=== PATIENT | male | born 1930 | race Caucasian/White ===

== ENCOUNTER 2017-11-10 09:25 | Observation (INO) ==
[2017-11-10 10:21] LABS: Urine Bilirubin Negative (NEGATIVE); Urine Blood 250 /ul (NEGATIVE); Urine Ketone Negative (NEGATIVE); Urine Protein >=300 mg/dL (NEGATIVE); Urine Urobilinogen Normal (NORMAL); Urine pH 6.5 pH (5.0-7.0)
[2017-11-10] MEDS ORDERED: CLONIDINE HCL 0.1 MG TABLET PO ONE (10:24)
[2017-11-10 10:26] LABS: Urine Appearance Cloudy (CLEAR); Urine Color Yellow; Urine Nitrite Positive (NEGATIVE)
[2017-11-10] MEDS ORDERED: CLONIDINE HCL 0.1 MG TABLET ONE (10:26)
[2017-11-10 10:28] LABS: Urine Bacteria 4+; Urine WBC 25-50 /hpf (0-5)
[2017-11-10 10:42] LABS: Hematocrit 30.3 % (42.0-52.0); Mean Cell Volume 117.9 fl (78-100); Mean Corpuscular Hemoglobin 38.9 pg (27-31); Mean Platelet Volume 9.2 fl (8-11.3); Platelet Count 550 K/mm3 (150-450); Red Blood Count 2.57 M/mm3 (4.7-6.0); Red Cell Distribution Width 14.7 % (11.5-14.0); White Blood Count 15.6 K/mm3 (4.0-10.5)
[2017-11-10 10:52] LABS: Total Cells Counted 100
[2017-11-10 11:00] LABS: ALT 13 U/L (19-67); AST 11 U/L (0-48); Albumin * 2.6 gm/dl (3.4-5.0); Alkaline Phosphatase * 61 U/L (50-170); Anion Gap 10.5 mmol/L (6.8-13.8); BUN/Creatinine Ratio 14.3 (9.0-21.6); Bilirubin, Total 0.4 mg/dL (0.0-1.1); Blood Urea Nitrogen 18 mg/dL (6-23); Ca. Corrected For Albumin 9.4 mg/dL (8.4-10.2); Calcium * 8.6 mg/dL (7.9-10.9); Carbon Dioxide 29.2 mmol/L (24-32.6); Chloride 105 mmol/L (97-106); Glucose * 116 mg/dL (70-110); Potassium 3.7 mmol/L (3.4-4.6); Sodium 141 mmol/L (132-142); Total Protein 6.1 gm/dL (6.2-8.2); Uric Acid 6.4 mg/dL (2.6-7.2)
[2017-11-10 11:01] LABS: Troponin I Less than 0.017 ng/mL (0.00-0.10)
[2017-11-10 11:12] LABS: Atypical (Reactive) Lymph 5 % (0-2); Eosinophil 1 % (0-3); Lymphocyte 24 % (20-51); Monocyte 3 % (0-9); Neutrophil 67 % (42-75); Neutrophil # 10.5 K/mm3 (1.3-6.0)
[2017-11-10 11:13] LABS: Platelet Estimate Normal (NORMAL); RBC Morphology Normal (NORMAL)
[2017-11-10] MEDS ORDERED: LABETALOL HCL 5 MG/ML VIAL IV ONE ×2 (11:17→11:30)
--- NOTE | 2017-11-10 11:40 | ERNOTE ---
Medical Problem HPI - Narrative Date of Service: 11/10/17 - General Chief Complaint: General Assessment Time Seen by Provider: 11/10/17 10:02 Source: patient, family Exam Limitations: no limitations - Immun/Allergies/Home Medications Immunizations: IMMUNIZATION HX Immunizations Up to Date Yes History of Influenza Vaccine Yes Hx Pneumococcal Vaccination Yes Allergies/Adverse Reactions: Allergies codeine Allergy (Severe, Verified 11/10/17 09:44) Swelling (Other) Home Medications: HOME MEDICATIONS Finasteride [Proscar] 5 mg PO DAILY 06/09/16 [Last Taken Unknown] Hydroxyurea [Hydrea] 500 mg PO DAILY 06/09/16 [Last Taken Unknown] Lisinopril [Zestril] 40 mg PO DAILY 06/09/16 [Last Taken Unknown] Multivitamin [Multivitamins] 1 ea PO DAILY 06/09/16 [Last Taken Unknown] Omeprazole [Prilosec] 20 mg PO DAILY 06/09/16 [Last Taken Unknown] Potassium Chloride 20 meq PO DAILY 06/09/16 [Last Taken Unknown] Tamsulosin HCl 0.4 mg PO HS 06/09/16 [Last Taken Unknown] amLODIPine BESYLATE [Norvasc] 5 mg PO DAILY 08/02/17 [Last Taken Unknown] acetaminophen 325 mg tablet 650 mg PO TID 09/27/17 [Last Taken Unknown] apixaban 5 mg tablet 5 mg PO BID 09/27/17 [Last Taken Unknown] aspirin 81 mg tablet,delayed release 81 mg PO DAILY 09/27/17 [Last Taken Unknown ] calcium polycarbophil 625 mg tablet 1,250 mg PO BID 09/27/17 [Last Taken Unknown ] colchicine 0.6 mg capsule 0.6 mg PO BID 09/27/17 [Last Taken Unknown] digoxin 125 mcg tablet 0.125 mg PO .COMPLEX 09/27/17 [Last Taken Unknown] docusate sodium 100 mg tablet 200 mg PO BID PRN tab 09/27/17 [Last Taken Unknown] furosemide 80 mg tablet 80 mg PO .every other day tab 09/27/17 [Last Taken Unknown] ipratropium-albuterol 0.5 mg-3 mg(2.5 mg base)/3 mL nebulization soln 3 ml IH QID PRN 09/27/17 [Last Taken Unknown] lidocaine 4 % topical cream 1 applic TP TID 09/27/17 [Last Taken Unknown] menthol 4 % topical gel % TP Q8H PRN ml 09/27/17 [Last Taken Unknown] metoprolol tartrate 50 mg tablet 75 mg PO BID tab 09/27/17 [Last Taken Unknown] oxycodone-acetaminophen 5 mg-325 mg tablet 1 tab PO Q4H PRN 09/27/17 [Last Taken Unknown] probenecid 500 mg tablet 250 mg PO BID tab 09/27/17 [Last Taken Unknown] - History of Present History Narrative: patient presents per ambulance from retirement with recent hx of weakness fever and inability to eat,, past hx of uti's Timing: constant, getting worse Severity: moderate Modifying Factors - (Improves): Present: rest Modifying Factors - (Worsens): Present: movement Review of Systems - Narrative Narrative: past hx of uti - Review of Systems Constitutional: Present: See HPI, weakness, fatigue, malaise EYE: Present: no symptoms reported ENT: Present: no symptoms reported Respiratory: Present: no symptoms reported Cardiology: Present: no symptoms reported Gastrointestinal/Abdominal: Present: no symptoms reported Genitourinary: Present: See HPI, frequency, pain, dysuria Musculoskeletal: Present: muscle stiffness, other - generalized weakness and swelling of hands Skin: Present: no symptoms reported Neurological: Present: dizziness/light-headedness, weakness Endocrine: Present: no symptoms reported Hematologic/Lymphatic: Present: no symptoms reported Psych: Present: no symptoms reported All Other Systems: All systems neg except as marked Medical History (Last Reviewed 10/05/17 @ 17:57 by STAN Roberts) CKD (chronic kidney disease) stage 3, GFR 30-59 ml/min Onset Date: Unknown Dysphagia Onset Date: 03/25/10 GERD (gastroesophageal reflux disease) Onset Date: Unknown Hyperlipidemia Onset Date: Unknown Hypertension Onset Date: Unknown Foreign body in digestive tract Onset Date: 03/25/10 Hypokalemia Onset Date: Unknown TIA (transient ischemic attack) Onset Date: 1998 Surgical History: Surgical History (Last Reviewed 10/05/17 @ 17:57 by STAN Roberts) H/O colonoscopy Onset Date: 2008 H/O eye surgery Onset Date: 1948 H/O hernia repair Onset Date: Unknown History of bladder surgery Onset Date: Unknown History of esophagogastroduodenoscopy (EGD) Onset Date: 06/09/16 Hx of tonsillectomy Onset Date: Unknown Family History: Family History (Last Reviewed 10/05/17 @ 17:57 by STAN Roberts) Father Cancer Mother Heart disease Diabetes Social History: Preferred Language Turkish Do you have any anglican or No cultural preference? Smoking Status Former smoker Have you smoked in the past 12 No months Do you dip or chew tobacco No Abuse History No History of abuse Psych History No pertinent hx Alcohol Use none Drug Use none Physical Exam - Physical Exam General Appearance: Present: mild distress, lethargic, thin Head Exam: Present: normal inspection, no evidence of injury Eye Exam: Normal inspection: bilateral, PERRL: bilateral, EOMI: bilateral Ears, Nose, Throat: Present: normal ENT inspection, normal pharynx Neck: Present: normal inspection, nontender Respiratory: Present: no respiratory distress, normal breath sounds, no accessory muscle use, chest nontender, lungs clear Cardiovascular/Chest: Present: regular rate, rhythm, no murmur, normal peripheral pulses Gastrointestinal/Abdominal: Present: normal bowel sounds, nontender, nondistended, soft, no organomegaly Male Genitals Exam: Present: testicular tenderness (L) Back Exam: Present: normal inspection, normal range of motion, no CVA tenderness , no vertebral tenderness Extremity Exam: Present: normal except - - diffuse swelling of both hands Neurological Exam: Present: alert, oriented, normal mood/affect, no motor/ sensory deficits Skin Exam: Present: normal color, warm/dry Lymphatic Exam: Present: no adenopathy ED Progress - Date and Time Seen: Date and Time: 11/10/17 11:37 condition unchanged - Results and Orders Patient's Lab Results:: I have reviewed the patient's lab results. - Vital Signs Patient's Vital Signs:: I have reviewed the patient's vital signs. Vital Signs: Vital Signs 11/10/17 09:38 11/10/17 10:20 11/10/17 10:28 Temperature 37.4 C Pulse Rate 81 88 80 Respiratory Rate 18 24 H Blood Pressure 216/86 H 202/80 H 203/81 H O2 Sat by Pulse Oximetry 95 96 11/10/17 10:43 11/10/17 11:25 Temperature Pulse Rate 82 79 Respiratory Rate 18 19 Blood Pressure 202/71 H 206/89 H O2 Sat by Pulse Oximetry 96 95 - EKG EKG: NSR EKG read: Interp. by me - X-Ray X-Ray #1 X-Ray: chest Interpretation: Discd w/ radiologist - no acute process - Progress/Reassessment Chief Complaint: General Assessment Progress:: Unchanged - Transfer of Care Expected Disposition: Admit Plan - Plan Plan: case discussed with dr charles who accepts patient for admission to observation Departure Clinical Impression: Urinary tract infection - Departure Disposition: Still a patient Condition: Fair
[2017-11-10] MEDS ORDERED: traMADol HCL 50 MG TABLET PO ONE (11:45)
[2017-11-10] MEDS ORDERED: CIPROFLOXACIN IN 5 % DEXTROSE 400 MG/200 ML BAG IV SCH (11:45)
[2017-11-10] MEDS ORDERED: traMADol HCL 50 MG TABLET ONE (11:48)
--- NOTE | 2017-11-10 13:27 | HP ---
Chief Complaint - Chief Complaint Date of Service: 11/10/17 Time of Service: 13:22 Chief Complaint: fever, hand pain History of Present Illness: I was called by the SNF nurse in his care facility and was told that his BP was running >210s after medications, I instructed her to send him to the ER for evaluation. Patient transferred to the ER this morning due to difficulty voiding (chronic), and elevated BP. He has resistent HTN which normally ranges in the 170-180s systolic. In the ER he was found to have a WBC of 15.6, a UA that was + for LE and nitrites as well as bacteria. He was afebrile. His only concern at that time was hand pain. He denied CP, SOB, nausea. He was given a dose of Rocephin, started on cipro, and transferred to the floor for observation. He denied pain with voiding. Of note he has a history of urinary retention requiring self catheterization which he had been doing for a couple years prior to his first admission to the hospital for sepsis secondary to UTI. This was stopped at that hospitalization and never resumed. I wonder if his BP is being affected by dilated bladder causing a sympathetic response. Will monitor urine outflow and do bladder scans monitoring post void residuals to make sure he is indeed voiding well. Medical History (Last Reviewed 10/05/17 @ 17:57 by STAN Roberts) CKD (chronic kidney disease) stage 3, GFR 30-59 ml/min Onset Date: Unknown Dysphagia Onset Date: 03/25/10 GERD (gastroesophageal reflux disease) Onset Date: Unknown Hyperlipidemia Onset Date: Unknown Hypertension Onset Date: Unknown Foreign body in digestive tract Onset Date: 03/25/10 Hypokalemia Onset Date: Unknown TIA (transient ischemic attack) Onset Date: 1998 Surgical History: Surgical History (Last Reviewed 10/05/17 @ 17:57 by STAN Roberts) H/O colonoscopy Onset Date: 2008 H/O eye surgery Onset Date: 1948 H/O hernia repair Onset Date: Unknown History of bladder surgery Onset Date: Unknown History of esophagogastroduodenoscopy (EGD) Onset Date: 06/09/16 Hx of tonsillectomy Onset Date: Unknown Family History: Family History (Last Reviewed 10/05/17 @ 17:57 by STAN Roberts) Father Cancer Mother Heart disease Diabetes Social History: Patient Lives/Resources [facility] 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 Smoking Status Former smoker Have you smoked in the past 12 No months Do you dip or chew tobacco No Abuse History No History of abuse Psych History No pertinent hx Alcohol Use none Drug Use none Review Of Systems (GEN) - Review of Systems Generalized/Overall Review: Absent: Weakness, Chills, Fever, Fatigue Respiratory: Absent: Cough, Shortness of Breath Cardiac: Present: Edema. Absent: Chest Pain, Syncope Abdominal: Absent: Nausea, Vomiting, Abdominal Pain, Constipation, Diarrhea Genitourinary: Present: Incontinent. Absent: Burning, Urgency, Frequency Musculoskeletal: Present: Joint Pain - hand pain Neurological: Absent: Headache Immunizations: IMMUNIZATION HX Immunizations Up to Date Yes History of Influenza Vaccine Yes Hx Pneumococcal Vaccination Yes Allergies/Adverse Reactions: Allergies Allergy/AdvReac Type Severity Reaction Status Date / Time codeine Allergy Severe Swelling Verified 11/10/17 09:44 (Other) Home Medications: HOME MEDICATIONS Finasteride [Proscar] 5 mg PO DAILY 06/09/16 [Last Taken Unknown] Hydroxyurea [Hydrea] 500 mg PO DAILY 06/09/16 [Last Taken Unknown] Lisinopril [Zestril] 40 mg PO DAILY 06/09/16 [Last Taken Unknown] Multivitamin [Multivitamins] 1 ea PO DAILY 06/09/16 [Last Taken Unknown] Omeprazole [Prilosec] 20 mg PO DAILY 06/09/16 [Last Taken Unknown] Potassium Chloride 20 meq PO DAILY 06/09/16 [Last Taken Unknown] Tamsulosin HCl 0.4 mg PO HS 06/09/16 [Last Taken Unknown] amLODIPine BESYLATE [Norvasc] 5 mg PO DAILY 08/02/17 [Last Taken Unknown] acetaminophen 325 mg tablet 650 mg PO TID 09/27/17 [Last Taken Unknown] apixaban 5 mg tablet 5 mg PO BID 09/27/17 [Last Taken Unknown] aspirin 81 mg tablet,delayed release 81 mg PO DAILY 09/27/17 [Last Taken Unknown ] calcium polycarbophil 625 mg tablet 1,250 mg PO BID 09/27/17 [Last Taken Unknown ] colchicine 0.6 mg capsule 0.6 mg PO BID 09/27/17 [Last Taken Unknown] digoxin 125 mcg tablet 0.125 mg PO .COMPLEX 09/27/17 [Last Taken Unknown] docusate sodium 100 mg tablet 200 mg PO BID PRN tab 09/27/17 [Last Taken Unknown] furosemide 80 mg tablet 80 mg PO .every other day tab 09/27/17 [Last Taken Unknown] ipratropium-albuterol 0.5 mg-3 mg(2.5 mg base)/3 mL nebulization soln 3 ml IH QID PRN 09/27/17 [Last Taken Unknown] lidocaine 4 % topical cream 1 applic TP TID 09/27/17 [Last Taken Unknown] menthol 4 % topical gel 1 % TP Q8H PRN ml 09/27/17 [Last Taken Unknown] metoprolol tartrate 50 mg tablet 75 mg PO BID tab 09/27/17 [Last Taken Unknown] oxycodone-acetaminophen 5 mg-325 mg tablet 1 tab PO Q4H PRN 09/27/17 [Last Taken Unknown] probenecid 500 mg tablet 250 mg PO BID tab 09/27/17 [Last Taken Unknown] Exam - Exam Vital Signs: Vital Signs - Last Taken Temp 36.7 C 11/10/17 12:55 Pulse 78 11/10/17 12:55 Resp 14 11/10/17 12:55 BP 188/72 H 11/10/17 12:55 Pulse Ox 98 11/10/17 12:55 Constitutional: Present: Alert, Oriented x3, Cooperative, Other - trouble hearing, difficult to understand, Elderly, Obese Eye Exam: bilateral eye: normal inspection, PERRL, EOMI Back Exam: Present: normal inspection. Absent: no CVA tenderness Respiratory: Present: chest non-tender, lungs clear, normal breath sounds, no respiratory distress, no accessory muscle use Cardiovascular/Chest: Present: normal peripheral pulses, regular rate, rhythm, systolic murmur - 2/6 Abdomen: Present: Normal bowel sounds, soft, tender - suprapubic tenderness /Rectal: Present: Exam deferred - patient unable to stand at bedside for rectal exam Extremity: Present: lower extremity edema. Absent: leg pain Skin Exam: Present: normal color, warm/dry 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: lathe hand II-XII nml as tested, normal cerebellar test, alert, oriented x 3 Appearance: Present: appropriate appearance Eye contact: Present: cooperative, good eye contact Thoughts: Present: normal thought pattern. Absent: incoherent Diagnostic Studies: Abnormal Lab Results 11/10/17 11/10/17 11/10/17 Range/Units 10:10 10:35 10:35 WBC 15.6 H (4.0-10.5) K/mm3 RBC 2.57 L (4.7-6.0) M/mm3 Hgb 10.0 L (13.5-18.0) gm/dL Hct 30.3 L (42.0-52.0) % MCV 117.9 H (78-100) fl MCH 38.9 H (27-31) pg RDW 14.7 H (11.5-14.0) % Plt Count 550 H (150-450) K/mm3 Neutrophils # (Manual) 10.5 H (1.3-6.0) K/mm3 Lymphocytes # (Manual) 3.7 H (1.5-3.5) k/mm3 Atypic/Reactive Lymphs 5 H (0-2) % Est GFR (Non-Af Amer) 58 L (60-130) mL/min Random Glucose 116 H (70-110) mg/dL ALT 13 L (19-67) U/L C-Reactive Prot, Quant 14.0 H (0.0-0.9) mg/dL Total Protein 6.1 L (6.2-8.2) gm/dL Albumin 2.6 L (3.4-5.0) gm/dl Urine Protein >=300 H (NEGATIVE) mg/dL Urine Blood 250 H (NEGATIVE) /ul Urine Nitrate Positive H (NEGATIVE) Prot Sulfosalicylic Acd 3+ H (0) mg/dL Ur Leukocyte Esterase 100 H (NEGATIVE) /ul Urine RBC 10-25 H (0-5) /hpf Urine WBC 25-50 H (0-5) /hpf Urine Bacteria 4+ H (NONE) Laboratory Results WBC 15.6 K/mm3 (4.0-10.5) H 11/10/17 10:35 RBC 2.57 M/mm3 (4.7-6.0) L 11/10/17 10:35 Hgb 10.0 gm/dL (13.5-18.0) L 11/10/17 10:35 Hct 30.3 % (42.0-52.0) L 11/10/17 10:35 MCV 117.9 fl (78-100) H 11/10/17 10:35 MCH 38.9 pg (27-31) H 11/10/17 10:35 MCHC 33.0 g/dl (32-36) 11/10/17 10:35 RDW 14.7 % (11.5-14.0) H 11/10/17 10:35 Plt Count 550 K/mm3 (150-450) H 11/10/17 10:35 MPV 9.2 fl (8-11.3) 11/10/17 10:35 Neutrophils % (Manual) 67 % (42-75) 11/10/17 10:35 Lymphocytes % (Manual) 24 % (20-51) 11/10/17 10:35 Monocytes % (Manual) 3 % (0-9) 11/10/17 10:35 Eosinophils % (Manual) 1 % (0-3) 11/10/17 10:35 Neutrophils # (Manual) 10.5 K/mm3 (1.3-6.0) H 11/10/17 10:35 Lymphocytes # (Manual) 3.7 k/mm3 (1.5-3.5) H 11/10/17 10:35 Monocytes # (Manual) 0.5 k/mm3 (0.0-1.0) 11/10/17 10:35 Eosinophils # (Manual) 0.2 k/mm3 (0.0-0.7) 11/10/17 10:35 Atypic/Reactive Lymphs 5 % (0-2) H 11/10/17 10:35 Platelet Estimate Normal (NORMAL) 11/10/17 10:35 RBC Morphology Normal (NORMAL) 11/10/17 10:35 Sodium 141 mmol/L (132-142) 11/10/17 10:35 Plasma Sodium 141 mmol/L (130-142) 11/10/17 10:35 Potassium 3.7 mmol/L (3.4-4.6) 11/10/17 10:35 Chloride 105 mmol/L (97-106) 11/10/17 10:35 Carbon Dioxide 29.2 mmol/L (24-32.6) 11/10/17 10:35 Anion Gap 10.5 mmol/L (6.8-13.8) 11/10/17 10:35 BUN 18 mg/dL (6-23) 11/10/17 10:35 Creatinine 1.26 mg/dL (0.4-1.4) 11/10/17 10:35 Est GFR (Non-Af Amer) 58 mL/min (60-130) L 11/10/17 10:35 BUN/Creatinine Ratio 14.3 (9.0-21.6) 11/10/17 10:35 Random Glucose 116 mg/dL (70-110) H 11/10/17 10:35 Lactic Acid, Venous 1.0 mmol/L (0.4-2.0) 11/10/17 10:35 Uric Acid 6.4 mg/dL (2.6-7.2) 11/10/17 10:35 Calcium 8.6 mg/dL (7.9-10.9) 11/10/17 10:35 Calcium Adj for Albumin 9.4 mg/dL (8.4-10.2) 11/10/17 10:35 Total Bilirubin 0.4 mg/dL (0.0-1.1) 11/10/17 10:35 AST 11 U/L (0-48) 11/10/17 10:35 ALT 13 U/L (19-67) L 11/10/17 10:35 Alkaline Phosphatase 61 U/L (50-170) 11/10/17 10:35 Troponin I Less than 0.017 ng/mL (0.00-0.10) 11/10/17 10:35 C-Reactive Prot, Quant 14.0 mg/dL (0.0-0.9) H 11/10/17 10:35 Total Protein 6.1 gm/dL (6.2-8.2) L 11/10/17 10:35 Albumin 2.6 gm/dl (3.4-5.0) L 11/10/17 10:35 Procalcitonin 0.11 ng/mL (0.05-0.50) 11/10/17 10:35 Urine Color Yellow 11/10/17 10:10 Urine Appearance Cloudy (CLEAR) 11/10/17 10:10 Urine pH 6.5 pH (5.0-7.0) 11/10/17 10:10 Ur Specific [place] 1.020 SP.GR. (1.005-1.030) 11/10/17 10:10 Urine Protein >=300 mg/dL (NEGATIVE) H 11/10/17 10:10 Urine Glucose (UA) Negative mg/dL (NEGATIVE) 11/10/17 10:10 Urine Ketones Negative mg/dL (NEGATIVE) 11/10/17 10:10 Urine Blood 250 /ul (NEGATIVE) H 11/10/17 10:10 Urine Nitrate Positive (NEGATIVE) H 11/10/17 10:10 Urine Bilirubin Negative mg/dl (NEGATIVE) 11/10/17 10:10 Prot Sulfosalicylic Acd 3+ mg/dL (0) H 11/10/17 10:10 Urine Urobilinogen Normal EU/dl (NORMAL) 11/10/17 10:10 Ur Leukocyte Esterase 100 /ul (NEGATIVE) H 11/10/17 10:10 Urine RBC 10-25 /hpf (0-5) H 11/10/17 10:10 Urine WBC 25-50 /hpf (0-5) H 11/10/17 10:10 Ur Epithelial Cells None seen /hpf (0-5) 11/10/17 10:10 Urine Bacteria 4+ (NONE) H 11/10/17 10:10 Urine Culture Comments Culture to follow 11/10/17 10:10 Assessment/Plan - Assessment/Plan (1) Urinary tract infection Assessment: Pt currently on Rocephin and cipro. Awaiting cultures. Will repeat CBC in the am. Advised nursing staff to perform bladder scans 1-2x a shift in order to evaluate possible retention. Pt has been afebrile since being on the floor. Problem: Acute Qualifiers: Urinary tract infection type: acute cystitis (2) Muscular deconditioning Assessment: Ordered PT to evaluate and treat. Problem: Chronic (3) HTN (hypertension) Assessment: Blood pressures still elevated. Will resume home meds and see how he does on them. Will adjust his current medications as needed. He does not tolerate Amlodipine due to swelling. Will consider changing his lasix to 40 mg q day instead of 80 mg every other day. Problem: Chronic (4) Urinary retention Assessment: See UTI. Perform in out cath if urine >250 following a void/scan. Problem: Suspected
[2017-11-10] MEDS: CIPROFLOXACIN IN 5 % DEXTROSE 400 MG/200 ML BAG IV SCH (14:04)
[2017-11-10] MEDS ORDERED: ALBUTEROL SULFATE/IPRATROPIUM 3 ML NEBU IH PRN (17:09)
[2017-11-10] MEDS ORDERED: DOCUSATE SODIUM 100 MG CAPSULE PO PRN (17:09)
[2017-11-10] MEDS: ACETAMINOPHEN 325 MG TABLET PO SCH (17:47)
[2017-11-10] MEDS: TAMSULOSIN HCL 0.4 MG CAP.SR.24H PO SCH (19:22)
[2017-11-10] MEDS: METOPROLOL TARTRATE 25 MG TABLET PO SCH (21:12)
[2017-11-10] MEDS: APIXABAN 5 MG TABLET PO SCH (21:12)
[2017-11-10] MEDS: PROBENECID 500 MG TABLET PO SCH (21:12)
[2017-11-11] MEDS: CIPROFLOXACIN IN 5 % DEXTROSE 400 MG/200 ML BAG IV SCH ×2 (01:08→13:38)
[2017-11-11] MEDS: PANTOPRAZOLE SODIUM 20 MG TABLET.DR PO SCH (07:15)
[2017-11-11] MEDS: FINASTERIDE 5 MG TABLET PO SCH (08:08)
[2017-11-11] MEDS: HYDROXYUREA 500 MG CAPSULE PO SCH (08:08)
[2017-11-11] MEDS: POTASSIUM CHLORIDE 20 MEQ TABLET.SA PO SCH (08:09)
[2017-11-11] MEDS: amLODIPine BESYLATE 5 MG TABLET PO SCH (08:09)
[2017-11-11] MEDS: LISINOPRIL 40 MG TABLET PO SCH (08:09)
[2017-11-11] MEDS: APIXABAN 5 MG TABLET PO SCH ×2 (08:09→20:18)
[2017-11-11] MEDS: DIGOXIN 0.125 MG TABLET PO SCH (08:09)
[2017-11-11] MEDS: ASPIRIN 81 MG TABLET.DR PO SCH (08:09)
[2017-11-11] MEDS: METOPROLOL TARTRATE 25 MG TABLET PO SCH ×2 (08:09→20:18)
[2017-11-11] MEDS: PROBENECID 500 MG TABLET PO SCH ×2 (08:09→20:19)
[2017-11-11] MEDS: ACETAMINOPHEN 325 MG TABLET PO SCH ×3 (08:18→16:59)
[2017-11-11 09:17] LABS: Hematocrit 29.2 % (42.0-52.0); Hemoglobin 9.6 gm/dL (13.5-18.0); Mean Cell Volume 117.7 fl (78-100); Mean Corpuscular Hemoglobin 38.7 pg (27-31); Mean Corpuscular Hgb Conc 32.9 g/dl (32-36); Mean Platelet Volume 9.3 fl (8-11.3); Platelet Count 554 K/mm3 (150-450); Red Blood Count 2.48 M/mm3 (4.7-6.0); Red Cell Distribution Width 14.6 % (11.5-14.0); White Blood Count 16.8 K/mm3 (4.0-10.5)
[2017-11-11 09:18] LABS: Total Cells Counted 100
[2017-11-11 09:40] LABS: Band 1 % (0-2.0); Lymphocyte 6 % (20-51); Monocyte 8 % (0-9); Neutrophil 85 % (42-75); Neutrophil # 14.3 K/mm3 (1.3-6.0)
[2017-11-11 09:41] LABS: Platelet Estimate Increased (NORMAL)
[2017-11-11 09:42] LABS: Hypersegmented Polys Trace
[2017-11-11 09:43] LABS: Macrocytosis 2+; Polychromasia Trace
--- NOTE | 2017-11-11 10:43 | PN ---
Subjective - Date and Time Seen Date: 11/11/17 Time: 10:42 Subjective Narrative: Patient appears to be more comfortable. His only concern is that his hands hurt. They are swollen and red around the thumbs (L>R). He states that he feels like he is not clearing his bladder when he voids but he denies burning or frequency. He was unable to walk today with PT because his hands hurt to much and he couldn 't lift himself out of the bed. He has no other concerns, states he slept well over night. Objective - Review of Systems Generalized/Overall Review: Reports: Weakness, Fatigue. Denies: Chills, Fever EENTM: Reports: No Symptoms Reported Cardiac: Reports: No Symptoms Reported Abdominal: Reports: No Symptoms Reported Genitourinary Symptoms: Reports: Retention. Denies: Burning, Urgency, Frequency Musculoskeletal Complaints: Reports: Joint Pain - hands are swollen and painful , left hand is red, Gout Neurological: Reports: No Symptoms Reported - Vitals Vitals: Last Vital Signs Temp 37.1 C 11/11/17 03:00 Pulse 68 11/11/17 08:09 Resp 20 11/11/17 03:00 BP 180/69 H 11/11/17 08:09 Pulse Ox 95 11/11/17 03:00 - Abnormal Lab Findings Abnormal Lab Findings: Abnormal Lab Results 11/10/17 11/10/17 11/11/17 Range/Units 10:35 10:35 09:13 WBC 15.6 H 16.8 H (4.0-10.5) K/mm3 RBC 2.57 L 2.48 L (4.7-6.0) M/mm3 Hgb 10.0 L 9.6 L (13.5-18.0) gm/dL Hct 30.3 L 29.2 L (42.0-52.0) % MCV 117.9 H 117.7 H (78-100) fl MCH 38.9 H 38.7 H (27-31) pg RDW 14.7 H 14.6 H (11.5-14.0) % Plt Count 550 H 554 H (150-450) K/mm3 Neutrophils % (Manual) 85 H (42-75) % Lymphocytes % (Manual) 6 L (20-51) % Neutrophils # (Manual) 10.5 H 14.3 H (1.3-6.0) K/mm3 Lymphocytes # (Manual) 3.7 H 1.0 L (1.5-3.5) k/mm3 Monocytes # (Manual) 1.3 H (0.0-1.0) k/mm3 Atypic/Reactive Lymphs 5 H (0-2) % Platelet Estimate Increased H (NORMAL) Est GFR (Non-Af Amer) 58 L (60-130) mL/min Random Glucose 116 H (70-110) mg/dL ALT 13 L (19-67) U/L C-Reactive Prot, Quant 14.0 H (0.0-0.9) mg/dL Total Protein 6.1 L (6.2-8.2) gm/dL Albumin 2.6 L (3.4-5.0) gm/dl - Exam Constitutional: Present: Alert, Oriented x3, Cooperative, Mild distress - hands are painful and tender to the touch, Obese ENT Exam: Present: hard of hearing Respiratory: Present: lungs clear, normal breath sounds, no respiratory distress Cardiovascular/Chest: Present: normal peripheral pulses, regular rate, rhythm, systolic murmur - 2/6, unchanged Abdomen: Present: soft, suprapubic tenderness. Absent: rebound tenderness, CVA tenderness, distended /Rectal: Present: Exam deferred Extremity: Present: pedal edema - to mid [place], swelling - bilat hand. Absent: non-tender - bilat hand (L>R), some redness over 1st MCP joint 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: no motor/sensory deficits, alert, normal mood/affect, oriented x 3 Appearance: Present: appropriate appearance Eye contact: Present: cooperative, good eye contact Thoughts: Present: normal thought pattern Assessment/Plan - Problems/Diagnosis (1) Urinary tract infection Problem: Acute Qualifiers: Urinary tract infection type: acute cystitis Narrative: Patient retaining urine. Bladder scan showed retention of >400 ccs. Straight cath produced thick cloudy urine. WBC increased over night while on Rocephin and Cipro IV. Culture came back with >100,000 gram negative bacilli. Sensitivities pending. Due to worsening WBC and urinary retention, I do not feel like it would be appropriate to send patient back to [facility] at this time. (2) Muscular deconditioning Problem: Chronic Narrative: Patient unwilling to stand or use his hands in anyway do to worsening hand pain/ redness. This is likely a gout flare as this was what he has previously been diagnosed with. Will check a uric acid level. Ordered short course of tramadol to be used while in acute flare with the idea that he will be able to get up and be compliant with PTs plan of care. He agreed to this, asked PT to stop back by. (3) HTN (hypertension) Problem: Chronic Narrative: BP still elevated in the 180s systolic. Concerned that his BP is partially resistant due to urinary retention causing increased sympathetic tone. Now with regular bladder scans and In and Out Cathes, hopefully this will help lower BP ( as well as help with his current UTI). Hesitant to change BP medications much as I don't want to lower it to rapidly where he has grown accustom to these higher pressures. Due to his swelling, I will change his 80 mg lasix every other day to 40 mg every day which should also help with his HTN (4) Urinary retention Problem: Suspected Narrative: see above (5) Gout flare Problem: Acute Qualifiers: Gout site: wrist Narrative: Will check a uric acid level. Tramadom 50 mg as needed for pain. Continue colchicine.
[2017-11-11] MEDS: traMADol HCL 50 MG TABLET PO PRN (11:03)
[2017-11-11] MEDS: COLCHICINE 0.6 MG TABLET PO SCH (13:40)
[2017-11-11] MEDS: FUROSEMIDE 10 MG/ML VIAL IV SCH (14:42)
[2017-11-11] MEDS: TAMSULOSIN HCL 0.4 MG CAP.SR.24H PO SCH (18:30)
[2017-11-12] MEDS: CIPROFLOXACIN IN 5 % DEXTROSE 400 MG/200 ML BAG IV SCH (01:10)
[2017-11-12] MEDS: PANTOPRAZOLE SODIUM 20 MG TABLET.DR PO SCH (07:23)
[2017-11-12] MEDS: traMADol HCL 50 MG TABLET PO PRN ×2 (07:40→11:57)
[2017-11-12] MEDS: LISINOPRIL 40 MG TABLET PO SCH (08:39)
[2017-11-12] MEDS: HYDROXYUREA 500 MG CAPSULE PO SCH (08:39)
[2017-11-12] MEDS: COLCHICINE 0.6 MG TABLET PO SCH (08:39)
[2017-11-12] MEDS: APIXABAN 5 MG TABLET PO SCH (08:39)
[2017-11-12] MEDS: ASPIRIN 81 MG TABLET.DR PO SCH (08:40)
[2017-11-12] MEDS: amLODIPine BESYLATE 5 MG TABLET PO SCH (08:40)
[2017-11-12] MEDS: DIGOXIN 0.125 MG TABLET PO SCH (08:40)
[2017-11-12] MEDS: POTASSIUM CHLORIDE 20 MEQ TABLET.SA PO SCH (08:40)
[2017-11-12] MEDS: ACETAMINOPHEN 325 MG TABLET PO SCH (08:41)
[2017-11-12] MEDS: FINASTERIDE 5 MG TABLET PO SCH (08:41)
[2017-11-12] MEDS: PROBENECID 500 MG TABLET PO SCH (08:43)
[2017-11-12] MEDS: FUROSEMIDE 10 MG/ML VIAL IV SCH (08:48)
[2017-11-12] MEDS ORDERED: METOPROLOL TARTRATE 100 MG TABLET PO SCH (09:00)
[2017-11-12 09:03] LABS: Hemoglobin 9.6 gm/dL (13.5-18.0); Mean Cell Volume 116.9 fl (78-100); Mean Corpuscular Hemoglobin 38.7 pg (27-31); Mean Corpuscular Hgb Conc 33.1 g/dl (32-36); Mean Platelet Volume 9.5 fl (8-11.3); Neutrophil # 11.8 K/mm3 (1.3-6.0); Platelet Count 570 K/mm3 (150-450); Red Blood Count 2.48 M/mm3 (4.7-6.0); Red Cell Distribution Width 14.5 % (11.5-14.0); White Blood Count 14.4 K/mm3 (4.0-10.5)
--- NOTE | 2017-11-12 12:42 | DS ---
(1) Urinary tract infection Problem: Acute Qualifiers: Urinary tract infection type: acute cystitis (2) Muscular deconditioning Problem: Chronic (3) HTN (hypertension) Problem: Chronic (4) Urinary retention Problem: Chronic (5) Gout flare Problem: Acute Qualifiers: Gout site: hand Laterality: unspecified laterality Description of Stay: Patient brought into the hospital due to acute UTI confirmed with culture. Started on antibiotics, will continue for another 8 days. Bacteria confirmed to be sensitive to abx of choice. His WBC trended up initially from first draw ( 15.6) but upon discharge was 14.4 and the patient was feeling and looking better. While here, he blood pressure was difficult to control. His metoprolol was adjusted as well as his diuretic. BPs ranged from 160s-190s systolic. Will continue to adjust this slowly once he returns to the nursing domi facilty. He was found to be in an acute gouty flare, he was started on colchicine which will be continued for roughly 7 days longer (stopped sooner if pain improved significantly). Will also provide short course of Tramadol for the next 10 days or so. He is weak and deconditioned, this has been a chronic problem. Will order PT to be continued while in the facility. As for his urinary retention, this is an issue that needs to be watched closely. He was doing this for >2 years prior to his previous most recent hospitalization for sepsis 2/2 UTI. This has not been continued after his last discharge. While here it was clear that he was unable to empty his bladder, with multiple scans post void showing >400 ml of urine still retained. This likely increased his chances of getting cystitis which is why he was brought in today. I will recommend continue "In and Out" cathes to be done by the nursing staff until he can show that his post void residual is <100 ml routinely. I am not sure that this will ever be accomplished though, and so staff will need to be diligent in monitor his urine output and providing capitalization as needed. Procedures Performed: none Results and Findings: Lab Pending Results 11/10/17 10:10: Urine Color Yellow, Urine Appearance Cloudy, Urine pH 6.5, Ur Specific [place] 1.020, Urine Protein >=300 H, Urine Glucose (UA) Negative, Urine Ketones Negative, Urine Blood 250 H, Urine Nitrate Positive H, Urine Bilirubin Negative, Prot Sulfosalicylic Acd 3+ H, Urine Urobilinogen Normal, Ur Leukocyte Esterase 100 H, Urine RBC 10-25 H, Urine WBC 25-50 H, Ur Epithelial Cells None seen, Urine Bacteria 4+ H, Urine Culture Comments Culture to follow 11/10/17 10:35: WBC 15.6 H, RBC 2.57 L, Hgb 10.0 L, Hct 30.3 L, MCV 117.9 H, MCH 38.9 H, MCHC 33.0, RDW 14.7 H, Plt Count 550 H, MPV 9.2, Neutrophils % ( Manual) 67, Lymphocytes % (Manual) 24, Monocytes % (Manual) 3, Eosinophils % ( Manual) 1, Neutrophils # (Manual) 10.5 H, Lymphocytes # (Manual) 3.7 H, Monocytes # (Manual) 0.5, Eosinophils # (Manual) 0.2, Atypic/Reactive Lymphs 5 H , Platelet Estimate Normal, RBC Morphology Normal 11/10/17 10:35: Sodium 141, Plasma Sodium 141, Potassium 3.7, Chloride 105, Carbon Dioxide 29.2, Anion Gap 10.5, BUN 18, Creatinine 1.26, Est GFR (Non-Af Amer) 58 L, BUN/Creatinine Ratio 14.3, Random Glucose 116 H, Uric Acid 6.4, Calcium 8.6, Calcium Adj for Albumin 9.4, Total Bilirubin 0.4, AST 11, ALT 13 L , Alkaline Phosphatase 61, Troponin I Less than 0.017, C-Reactive Prot, Quant 14.0 H, Total Protein 6.1 L, Albumin 2.6 L 11/10/17 10:35: Lactic Acid, Venous 1.0 11/10/17 10:35: Procalcitonin 0.11 11/11/17 09:11: Uric Acid 6.0 11/11/17 09:13: WBC 16.8 H, RBC 2.48 L, Hgb 9.6 L, Hct 29.2 L, MCV 117.7 H, MCH 38.7 H, MCHC 32.9, RDW 14.6 H, Plt Count 554 H, MPV 9.3, Immature Gran % (Auto) Radio Program Director, Immature Gran # (Auto) Radio Program Director, Neutrophils % Radio Program Director, Neutrophils % (Manual) 85 H, Band Neuts % (Manual) 1, Lymphocytes % Radio Program Director, Lymphocytes % (Manual) 6 L, Monocytes % Radio Program Director, Monocytes % (Manual) 8, Eosinophils % Radio Program Director, Basophils % Radio Program Director, Nucleated RBC % Radio Program Director, Neutrophils # Radio Program Director, Neutrophils # (Manual) 14.3 H, Lymphocytes # Radio Program Director, Lymphocytes # (Manual) 1.0 L, Monocytes # Radio Program Director, Monocytes # ( Manual) 1.3 H, Eosinophils # Radio Program Director, Absolute Basophils Radio Program Director, Hypersegmented Polys Trace, Platelet Estimate Increased H, Polychromasia Trace, Macrocytosis 2+ 11/12/17 08:44: WBC 14.4 H, RBC 2.48 L, Hgb 9.6 L, Hct 29.0 L, MCV 116.9 H, MCH 38.7 H, MCHC 33.1, RDW 14.5 H, Plt Count 570 H, MPV 9.5, Immature Gran % (Auto) 2.20 H, Immature Gran # (Auto) 0.31 H, Neutrophils % 82.0 H, Lymphocytes % 8.0 L , Monocytes % 6.9, Eosinophils % 0.6, Basophils % 0.3, Nucleated RBC % 0.0, Neutrophils # 11.8 H, Lymphocytes # 1.15 L, Monocytes # 1.0, Eosinophils # 0.1, Absolute Basophils 0.0 Discharge Location: [facility] Disposition: Intermediate Care Facility ICF Condition: Fair Level of Care: ICF Discharge Activity: Activity as tolerated Discharge Diet: Low fat/chol Correction Therapy: Physicial Therapy Complete Home Medications List: Complete Home Medication List: Finasteride [Proscar] 5 mg PO DAILY 06/09/16 Hydroxyurea [Hydrea] 500 mg PO DAILY 06/09/16 Lisinopril [Zestril] 40 mg PO DAILY 06/09/16 Multivitamin [Multivitamins] 1 ea PO DAILY 06/09/16 Omeprazole [Prilosec] 20 mg PO DAILY 06/09/16 Potassium Chloride 20 meq PO DAILY 06/09/16 Tamsulosin HCl 0.4 mg PO HS 06/09/16 amLODIPine BESYLATE [Norvasc] 5 mg PO DAILY 08/02/17 acetaminophen 325 mg tablet 650 mg PO TID 09/27/17 apixaban 5 mg tablet 5 mg PO BID 09/27/17 aspirin 81 mg tablet,delayed release 81 mg PO DAILY 09/27/17 calcium polycarbophil 625 mg tablet 1,250 mg PO BID 09/27/17 colchicine 0.6 mg capsule 0.6 mg PO BID 09/27/17 digoxin 125 mcg tablet 0.125 mg PO .COMPLEX 09/27/17 docusate sodium 100 mg tablet 200 mg PO BID PRN tab 09/27/17 furosemide 80 mg tablet 80 mg PO .every other day tab 09/27/17 ipratropium-albuterol 0.5 mg-3 mg(2.5 mg base)/3 mL nebulization soln 3 ml IH QID PRN 09/27/17 lidocaine 4 % topical cream 1 applic TP TID 09/27/17 menthol 4 % topical gel 1 % TP Q8H PRN ml 09/27/17 probenecid 500 mg tablet 250 mg PO BID tab 09/27/17 Ciprofloxacin HCl [Cipro] 500 mg PO BID #14 tablet 11/12/17 Colchicine 0.6 mg PO DAILY #7 tablet 11/12/17 Furosemide [Lasix] 40 mg PO DAILY #30 tablet 11/12/17 Metoprolol Tartrate [Lopressor] 100 mg PO BID tablet 11/12/17 traMADol HCL [Ultram] 50 mg PO Q8H PRN #30 tablet 11/12/17
[2017-11-12 13:12] VITALS: BP 154/62
== END 2017-11-12 13:50 ==
LOC: MS 09:25 → ER 09:25 → MS 12:53
PROVIDERS: ADMIT Family Medicine; ATTEND Family Medicine
DX: I12.9 Hypertensive chronic kidney disease with stage 1 through stage 4 chronic kidney disease, or unspecified chronic kidney disease; M62.81 Muscle weakness (generalized); B96.1 Klebsiella pneumoniae [K. pneumoniae] as the cause of diseases classified elsewhere; M10.9 Gout, unspecified; N18.3 Chronic kidney disease, stage 3 (moderate); N30.00 Acute cystitis without hematuria; Z87.891 Personal history of nicotine dependence; I10 Essential (primary) hypertension; R33.9 Retention of urine, unspecified
CPT/HCPCS: 36415; 71010; 71045; 80053; 81001; 83605; 84145; 84484; 84550; 85025; 86140; 87077; 87081; 87086; 87186; 93005; 96365; 96366; 96367; 96375; 96376; 97110; 97163; 99284; G0378; G8978; G8979; G8980

== ENCOUNTER 2018-03-29 09:53 | Inpatient (IN) ==
--- NOTE | 2018-03-29 10:32 | ERNOTE ---
Neuro HPI ER Record Date of Service: 03/29/18 Presenting Symptoms: confusion, difficulty walking Time Seen by Provider: 03/29/18 10:07 Source: patient, family, RN notes reviewed, EMS notes reviewed, [facility]dc records Exam Limitations: clinical condition, hard of hearing Immunizations: IMMUNIZATION HX Immunizations Up to Date Yes History of Influenza Vaccine Yes Hx Pneumococcal Vaccination Yes Allergies/Adverse Reactions: Allergies Allergy/AdvReac Type Severity Reaction Status Date / Time codeine Allergy Severe Swelling Verified 03/29/18 13:36 (Other) Home Medications: HOME MEDICATIONS Finasteride [Proscar] 5 mg PO DAILY 06/09/16 [Last Taken Unknown] Hydroxyurea [Hydrea] 500 mg PO DAILY 06/09/16 [Last Taken Unknown] Lisinopril [Zestril] 40 mg PO DAILY 06/09/16 [Last Taken Unknown] Multivitamin [Multivitamins] 1 ea PO DAILY 06/09/16 [Last Taken Unknown] Potassium Chloride 20 meq PO DAILY 06/09/16 [Last Taken Unknown] Tamsulosin HCl 0.4 mg PO HS 06/09/16 [Last Taken Unknown] amLODIPine BESYLATE [Norvasc] 10 mg PO DAILY 08/02/17 [Last Taken Unknown] acetaminophen 325 mg tablet 650 mg PO TID 09/27/17 [Last Taken Unknown] apixaban 5 mg tablet 5 mg PO BID 09/27/17 [Last Taken Unknown] aspirin 81 mg tablet,delayed release 81 mg PO DAILY 09/27/17 [Last Taken Unknown] calcium polycarbophil 625 mg tablet 1,250 mg PO BID 09/27/17 [Last Taken Unknown] digoxin 125 mcg tablet 0.125 mg PO .COMPLEX 09/27/17 [Last Taken Unknown] docusate sodium 100 mg tablet 200 mg PO BID PRN tab 09/27/17 [Last Taken Unknown] ipratropium-albuterol 0.5 mg-3 mg(2.5 mg base)/3 mL nebulization soln 3 ml IH QID PRN 09/27/17 [Last Taken Unknown] lidocaine 4 % topical cream 1 applic TP TID 09/27/17 [Last Taken Unknown] menthol 4 % topical gel 1 % TP Q8H PRN ml 09/27/17 [Last Taken Unknown] probenecid 500 mg tablet 250 mg PO BID tab 09/27/17 [Last Taken Unknown] Furosemide [Lasix] 40 mg PO DAILY #30 tab 11/12/17 [Last Taken Unknown] Metoprolol Tartrate [Lopressor] 100 mg PO BID tab 11/12/17 [Last Taken Unknown] ranitidine 150 mg tablet 150 mg PO DAILY #30 tab 02/07/18 [Last Taken Unknown] cephalexin 500 mg capsule 500 mg PO BID 10 Days #20 cap 03/25/18 [Last Taken Unknown] gabapentin 100 mg capsule 100 mg PO TID 03/28/18 [Last Taken Unknown] neomycin 3.5 mg-bacitracn Zn 400 unit-polymyxin 5,000 unit/g top spray 1 g TP TID g 03/28/18 [Last Taken Unknown] - History of Present Illness Narrative: The patient is a 87 year old male who presents for confusion and weakness which has been present for 1 day. There are associated symptoms of decreased appetite and generalized body aches. The patient reports generalized pain. There are no alleviating factors. There are no aggravating factors. Previous treatments have included: currently taking Keflex which was started on 03/25/17 for left facial/ear cellulitis. The past medical history includes: CKD, GERD, HLD, HTN and TIA. The social history is positive for former smoker. The patient has had unknown ill contacts. Patient has history of esophageal foreign body and son states that patient had difficulty with swallowing on Wednesday but was able to get food to pass on his own. Son states he saw patient on Wednesday and ate chili without difficulty. Today the care center called family due to patient having increased confusion, more garbled speech and weakness. Patient is typically ambulatory with use of walker and patient has needed minimum of 2 assist and max assist with cares. Patient oriented to place, self and family but disoriented to situation and time. - Character of Deficits Baseline Cognition: Present: alert but disoriented to time Baseline Gait: Present: uses a cane/walker Associated Symptoms: Reports: neck/back pain, altered mental status Review of Systems - Review of Systems Constitutional: Present: weakness, fatigue. 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 Genitourinary: Present: no symptoms reported - nothing reported Musculoskeletal: Present: back pain Skin: Present: change in color - left facial erythema Neurological: Present: weakness All Other Systems: All systems neg except as marked Medical History (Last Reviewed 03/29/18 @ 10:21 by STAN oRberts) CKD (chronic kidney disease) stage 3, GFR 30-59 ml/min Onset Date: Unknown Dysphagia Onset Date: 03/25/10 GERD (gastroesophageal reflux disease) Onset Date: Unknown Hyperlipidemia Onset Date: Unknown Hypertension Onset Date: Unknown Foreign body in digestive tract Onset Date: 03/25/10 Hypokalemia Onset Date: Unknown TIA (transient ischemic attack) Onset Date: 1998 Surgical History: Surgical History (Last Reviewed 03/29/18 @ 10:21 by STAN Roberts) H/O colonoscopy Onset Date: 2008 H/O eye surgery Onset Date: 1948 H/O hernia repair Onset Date: Unknown 1 single and 1 double repair. History of bladder surgery Onset Date: Unknown History of esophagogastroduodenoscopy (EGD) Onset Date: 06/09/16 Hx of tonsillectomy Onset Date: Unknown Family History: Family History (Last Reviewed 03/29/18 @ 10:21 by STAN Roberts) Father Cancer Mother Diabetes Heart disease Social History: Preferred Language [place] Do you have any anabaptism or Yes: confucianist cultural preference? Smoking Status Former smoker Have you smoked in the past 12 No months Do you dip or chew tobacco No Abuse History No History of abuse Psych History No pertinent hx Alcohol Use none Drug Use none (Last Reviewed 03/28/18 @ 15:54 by HELEN Swan) No Social History Section defined Physical Exam - Physical Exam General Appearance: Present: alert Head Exam: Present: tenderness - left ear and facial erythema consistent with cellulitis, Eye Exam: Normal inspection: right - exotropia, PERRL: bilateral, EOMI: bilateral Ears, Nose, Throat: Present: normal except - - erythema to left auricle , dry mucous membranes Respiratory: Present: respiratory distress - mild tachypnea, decreased breath sounds, rhonchi - bases Cardiovascular/Chest: Present: regular rate, rhythm Peripheral Pulses: N=norm/S=strong/W=weak/B=bound/A=absent: Radial (L): Normal Gastrointestinal/Abdominal: Present: normal bowel sounds, nontender, nondistended, soft, no organomegaly Rectal Exam: Present: heme negative stool, decreased tone. Absent: black stool Neurological Exam: Present: alert, normal mood/affect, disoriented to time, disoriented to situation. Absent: disoriented to person, disoriented to place Skin Exam: Present: warm/dry, pallor Progress - Date and Time Seen: Date and Time: 03/29/18 13:14 Discussed case with , will admit patient due to anemia, acute renal insuff, hypernatremia, and alteration in mental status. Discussed with regarding CT diversion with awaiting testing. CT diversion was also discussed with family who requests patient stay with treatment and await CT testing when back up. Also discussed with regarding left face and ear cellulitis with Keflex treatment, report from [place] that no change or worsening to erythema or size. states will manage antibiotic treatment. [facility] ordered and will transfer upon availability. Rectal exam showed stool without gross blood. - Results and Orders Patient's Lab Results:: I have reviewed the patient's lab results. - Vital Signs Patient's Vital Signs:: I have reviewed the patient's vital signs. Vital Signs: Vital Signs 03/29/18 09:53 Temperature 36.4 C Pulse Rate 99 Respiratory Rate 22 H Blood Pressure 106/54 O2 Sat by Pulse Oximetry 96 - EKG EKG #1 EKG: NSR, other - PAC's - X-Ray X-Ray #1 X-Ray: chest Interpretation: Reviewed by me X-ray Comments: X-RAY REPORT ~[id number] RAD/Chest Single View *~ Exam Date: 03/29/2018 10:14 Ordering Physician: Taylor Vasquez REFERENCE ASSISTANT Indication: ams Comparison: November 10, 2017 Technique: Chest Single View * Findings: The lungs demonstrate no focal consolidation or acute abnormality. There is no pleural effusion or pneumothorax. Cardiac silhouette and pulmonary vasculature are normal. The osseous structures are within normal limits for age. IMPRESSION: No acute cardiopulmonary process detected Electronically signed by Franky Jenkins M.D.. X-Ray #2 X-Ray: abdomen Interpretation: Reviewed by me X-ray Comments: X-RAY REPORT ~[id number] RAD/Abdomen Flat W/ Upright *~ Exam Date: 03/29/2018 10:31 Ordering Physician: Taylor Vasquez REFERENCE ASSISTANT INDICATION: vomiting COMPARISON: None TECHNIQUE: Abdomen Flat W/ Upright * FINDINGS: No free air. Nonobstructed nonspecific bowel gas pattern. No abnormal calcifi cations. Osseous structures demonstrate skeletally immature patient. There are vascular calcifications. IMPRESSION: 1. No definitive evidence for acute plain film pathology. Electronically signed by Franky Jenkins M.D.. - Progress/Reassessment Chief Complaint: Altered Mental Status Departure Clinical Impression: Acute renal insufficiency, Hypernatremia, Acute alteration in mental status Anemia Qualifiers: Anemia type: other cause - Departure Disposition: Still a patient Condition: Fair
[2018-03-29 11:49] LABS: Mean Cell Volume 126.8 fl (78-100); Mean Corpuscular Hemoglobin 40.5 pg (27-31); Mean Platelet Volume 10.2 fl (8-11.3); Platelet Count 625 K/mm3 (150-450); Red Blood Count 1.53 M/mm3 (4.7-6.0); Red Cell Distribution Width 14.6 % (11.5-14.0)
[2018-03-29 11:52] LABS: Hematocrit 19.4 % (42.0-52.0); Hemoglobin 6.2 gm/dL (13.5-18.0)
[2018-03-29 11:53] LABS: Total Cells Counted 100
[2018-03-29 12:09] LABS: Band 2 % (0-2.0); Immature Granulocyte 7 (0-1); Lymphocyte 5 % (20-51); Monocyte 1 % (0-9); Neutrophil 85 % (42-75); Platelet Estimate Increased (NORMAL)
[2018-03-29 12:10] LABS: Hypochromia 2+; Macrocytosis 1+; Polychromasia 1+; Target Cells 1+
[2018-03-29 12:18] LABS: Albumin * 2.4 gm/dl (3.4-5.0); Anion Gap 18.1 mmol/L (6.8-13.8); Bilirubin, Total 0.2 mg/dL (0.0-1.1); Ca. Corrected For Albumin 9.6 mg/dL (8.4-10.2); Calcium * 8.6 mg/dL (7.9-10.9); Carbon Dioxide 24.9 mmol/L (24-32.6); Magnesium 2.1 mg/dL (1.2-2.8)
[2018-03-29 12:22] LABS: BUN/Creatinine Ratio 57.2 (9.0-21.6)
[2018-03-29 13:34] LABS: Urine Bilirubin Negative (NEGATIVE); Urine Blood Negative /ul (NEGATIVE); Urine Ketone Negative (NEGATIVE); Urine Nitrite Negative (NEGATIVE); Urine Protein 100 mg/dL (NEGATIVE); Urine Specific Gravity 1.025 SP.GR. (1.005-1.030); Urine Urobilinogen Normal (NORMAL); Urine pH 5.5 pH (5.0-7.0)
[2018-03-29 13:46] LABS: Urine Appearance Clear (CLEAR); Urine Bacteria TRACE; Urine Color Yellow; Urine RBC None Seen /hpf (0-5); Urine WBC 0-5 /hpf (0-5)
--- NOTE | 2018-03-29 16:58 | HP ---
Chief Complaint - Chief Complaint Date of Service: 03/29/18 Time of Service: 16:55 Chief Complaint: altered mental status History of Present Illness: Patient with PMHx of afib, esophageal stricture, HTN, CKD was brought to the ED from [facility] by family for altered mental status. He was admitted to [facility] last year for strengthening after a hospitalization for urosepsis. He was conversating normally two days prior. His son reports he has similar mentation with UTIs in the past. He has intermittent choking episodes, and has had his esophagus stretched. He had a choking episode last weekend. No fevers or respiratory symptoms. He was started on keflex last week for cellulitis of the left side of his neck, which his son feels is improving. In the ED, his hemoglobin was found to be 6.2, and PRBC transfusion has been initiated. WBC 20.0, and platelets 620. CT head pending, but the CT scanner is not currently functioning. Discussed treatment goals, and his son would like him to be comfortable, but does not want aggressive interventions. He is a DNR. Medical History (Last Reviewed 03/29/18 @ 13:36 by Thu Correa RN) CKD (chronic kidney disease) stage 3, GFR 30-59 ml/min Onset Date: Unknown Dysphagia Onset Date: 03/25/10 GERD (gastroesophageal reflux disease) Onset Date: Unknown Hyperlipidemia Onset Date: Unknown Hypertension Onset Date: Unknown Foreign body in digestive tract Onset Date: 03/25/10 Hypokalemia Onset Date: Unknown TIA (transient ischemic attack) Onset Date: 1998 Surgical History: Surgical History (Last Reviewed 03/29/18 @ 13:36 by Thu Correa RN) H/O colonoscopy Onset Date: 2008 H/O eye surgery Onset Date: 1948 H/O hernia repair Onset Date: Unknown 1 single and 1 double repair. History of bladder surgery Onset Date: Unknown History of esophagogastroduodenoscopy (EGD) Onset Date: 06/09/16 Hx of tonsillectomy Onset Date: Unknown Family History: Family History (Last Reviewed 03/29/18 @ 13:36 by Thu Correa RN) Father Cancer Mother Heart disease Diabetes Social History: Patient Lives/Resources [facility] Utilized Preferred Language Citizen Of [place] Do you have any voodoo or Yes: presbyterian cultural preference? Smoking Status Never smoker Have you smoked in the past 12 No months Do you dip or chew tobacco No Abuse History No History of abuse Psych History No pertinent hx Alcohol Use none Drug Use none (Last Reviewed 03/28/18 @ 15:54 by HELEN Swan) No Social History Section defined Review Of Systems (GEN) - Review of Systems Generalized/Overall Review: Absent: Fever Respiratory: Present: Other - choking episode last weekend. Absent: Shortness of Breath Cardiac: Present: Chest Pain, Edema Abdominal: Absent: Vomiting, Diarrhea Genitourinary: Absent: Frequency Skin: Present: Change in Color - erythema of left neck Immunizations: IMMUNIZATION HX Immunizations Up to Date Yes History of Influenza Vaccine Yes Hx Pneumococcal Vaccination Yes Allergies/Adverse Reactions: Allergies Allergy/AdvReac Type Severity Reaction Status Date / Time codeine Allergy Severe Swelling Verified 03/29/18 13:36 (Other) Home Medications: HOME MEDICATIONS Finasteride [Proscar] 5 mg PO DAILY 06/09/16 [Last Taken Unknown] Hydroxyurea [Hydrea] 500 mg PO DAILY 06/09/16 [Last Taken Unknown] Lisinopril [Zestril] 40 mg PO DAILY 06/09/16 [Last Taken Unknown] Multivitamin [Multivitamins] 1 ea PO DAILY 06/09/16 [Last Taken Unknown] Potassium Chloride 20 meq PO DAILY 06/09/16 [Last Taken Unknown] Tamsulosin HCl 0.4 mg PO HS 06/09/16 [Last Taken Unknown] amLODIPine BESYLATE [Norvasc] 10 mg PO DAILY 08/02/17 [Last Taken Unknown] acetaminophen 325 mg tablet 650 mg PO TID 09/27/17 [Last Taken Unknown] apixaban 5 mg tablet 5 mg PO BID 09/27/17 [Last Taken Unknown] aspirin 81 mg tablet,delayed release 81 mg PO DAILY 09/27/17 [Last Taken Unknown] calcium polycarbophil 625 mg tablet 1,250 mg PO BID 09/27/17 [Last Taken Unknown] digoxin 125 mcg tablet 0.125 mg PO .COMPLEX 09/27/17 [Last Taken Unknown] docusate sodium 100 mg tablet 200 mg PO BID PRN tab 09/27/17 [Last Taken Unknown] ipratropium-albuterol 0.5 mg-3 mg(2.5 mg base)/3 mL nebulization soln 3 ml IH QID PRN 09/27/17 [Last Taken Unknown] lidocaine 4 % topical cream 1 applic TP TID 09/27/17 [Last Taken Unknown] menthol 4 % topical gel 1 % TP Q8H PRN ml 09/27/17 [Last Taken Unknown] probenecid 500 mg tablet 250 mg PO BID tab 09/27/17 [Last Taken Unknown] Furosemide [Lasix] 40 mg PO DAILY #30 tab 11/12/17 [Last Taken Unknown] Metoprolol Tartrate [Lopressor] 100 mg PO BID tab 11/12/17 [Last Taken Unknown] ranitidine 150 mg tablet 150 mg PO DAILY #30 tab 02/07/18 [Last Taken Unknown] cephalexin 500 mg capsule 500 mg PO BID 10 Days #20 cap 03/25/18 [Last Taken Unknown] gabapentin 100 mg capsule 100 mg PO TID 03/28/18 [Last Taken Unknown] neomycin 3.5 mg-bacitracn Zn 400 unit-polymyxin 5,000 unit/g top spray 1 g TP TID g 03/28/18 [Last Taken Unknown] Exam - Exam Vital Signs: Vital Signs - Last Taken Temp 36.9 C 03/29/18 15:41 Pulse 98 03/29/18 15:41 Resp 18 03/29/18 15:41 BP 150/60 H 03/29/18 15:41 Pulse Ox 94 03/29/18 15:41 Constitutional: Present: No distress, Somnolent - wakens easily, Elderly Respiratory: Present: normal breath sounds, no respiratory distress, No rales, No wheezing Cardiovascular/Chest: Present: regular rate, rhythm, systolic murmur Abdomen: Present: soft, nontender Extremity: Present: lower extremity edema - 1+ bilaterally to the ankle Skin Exam: Present: other - mild erythema of left neck 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: other - makes eye contact, but unable to answer orientation questions Eye contact: Present: other - right eye exotropia Diagnostic Studies: Abnormal Lab Results 03/29/18 03/29/18 03/29/18 Range/Units 10:16 11:30 11:30 WBC 20.0 H (4.0-10.5) K/mm3 RBC 1.53 L (4.7-6.0) M/mm3 Hgb 6.2 L* D (13.5-18.0) gm/dL Hct 19.4 L* D (42.0-52.0) % MCV 126.8 H (78-100) fl MCH 40.5 H (27-31) pg RDW 14.6 H (11.5-14.0) % Plt Count 625 H (150-450) K/mm3 Neutrophils % (Manual) 85 H (42-75) % Lymphocytes % (Manual) 5 L (20-51) % Immature Granulocytes 7 H (0-1) Neutrophils # (Manual) 17.0 H (1.3-6.0) K/mm3 Lymphocytes # (Manual) 1.0 L (1.5-3.5) k/mm3 Platelet Estimate Increased H (NORMAL) Sodium 149 H (132-142) mmol/L Plasma Sodium 150 H (130-142) mmol/L Chloride 110 H (97-106) mmol/L Anion Gap 18.1 H (6.8-13.8) mmol/L BUN 103 H D (6-23) mg/dL Creatinine 1.80 H (0.4-1.4) mg/dL Est GFR (Non-Af Amer) 38 L D (60-130) mL/min BUN/Creatinine Ratio 57.2 H (9.0-21.6) Random Glucose 138 H (70-110) mg/dL Lactic Acid, Venous 2.2 H* (0.4-2.0) mmol/L ALT 11 L (19-67) U/L Alkaline Phosphatase 43 L (50-170) U/L B-Natriuretic Peptide (5-650) pg/mL Total Protein 5.0 L (6.2-8.2) gm/dL Albumin 2.4 L (3.4-5.0) gm/dl Urine Protein (NEGATIVE) mg/dL Stool Occult Blood Crossmatch 03/29/18 03/29/18 03/29/18 Range/Units 11:52 12:00 12:36 WBC (4.0-10.5) K/mm3 RBC (4.7-6.0) M/mm3 Hgb (13.5-18.0) gm/dL Hct (42.0-52.0) % MCV (78-100) fl MCH (27-31) pg RDW (11.5-14.0) % Plt Count (150-450) K/mm3 Neutrophils % (Manual) (42-75) % Lymphocytes % (Manual) (20-51) % Immature Granulocytes (0-1) Neutrophils # (Manual) (1.3-6.0) K/mm3 Lymphocytes # (Manual) (1.5-3.5) k/mm3 Platelet Estimate (NORMAL) Sodium (132-142) mmol/L Plasma Sodium (130-142) mmol/L Chloride (97-106) mmol/L Anion Gap (6.8-13.8) mmol/L BUN (6-23) mg/dL Creatinine (0.4-1.4) mg/dL Est GFR (Non-Af Amer) (60-130) mL/min BUN/Creatinine Ratio (9.0-21.6) Random Glucose (70-110) mg/dL Lactic Acid, Venous (0.4-2.0) mmol/L ALT (19-67) U/L Alkaline Phosphatase (50-170) U/L B-Natriuretic Peptide 1168 H (5-650) pg/mL Total Protein (6.2-8.2) gm/dL Albumin (3.4-5.0) gm/dl Urine Protein (NEGATIVE) mg/dL Stool Occult Blood Positive H Crossmatch See Detail 03/29/18 Range/Units 13:13 WBC (4.0-10.5) K/mm3 RBC (4.7-6.0) M/mm3 Hgb (13.5-18.0) gm/dL Hct (42.0-52.0) % MCV (78-100) fl MCH (27-31) pg RDW (11.5-14.0) % Plt Count (150-450) K/mm3 Neutrophils % (Manual) (42-75) % Lymphocytes % (Manual) (20-51) % Immature Granulocytes (0-1) Neutrophils # (Manual) (1.3-6.0) K/mm3 Lymphocytes # (Manual) (1.5-3.5) k/mm3 Platelet Estimate (NORMAL) Sodium (132-142) mmol/L Plasma Sodium (130-142) mmol/L Chloride (97-106) mmol/L Anion Gap (6.8-13.8) mmol/L BUN (6-23) mg/dL Creatinine (0.4-1.4) mg/dL Est GFR (Non-Af Amer) (60-130) mL/min BUN/Creatinine Ratio (9.0-21.6) Random Glucose (70-110) mg/dL Lactic Acid, Venous (0.4-2.0) mmol/L ALT (19-67) U/L Alkaline Phosphatase (50-170) U/L B-Natriuretic Peptide (5-650) pg/mL Total Protein (6.2-8.2) gm/dL Albumin (3.4-5.0) gm/dl Urine Protein 100 H (NEGATIVE) mg/dL Stool Occult Blood Crossmatch Laboratory Results WBC 20.0 K/mm3 (4.0-10.5) H 03/29/18 11:30 RBC 1.53 M/mm3 (4.7-6.0) L 03/29/18 11:30 Hgb 6.2 gm/dL (13.5-18.0) L* D 03/29/18 11:30 Hct 19.4 % (42.0-52.0) L* D 03/29/18 11:30 MCV 126.8 fl (78-100) H 03/29/18 11:30 MCH 40.5 pg (27-31) H 03/29/18 11:30 MCHC 32.0 g/dl (32-36) 03/29/18 11:30 RDW 14.6 % (11.5-14.0) H 03/29/18 11:30 Plt Count 625 K/mm3 (150-450) H 03/29/18 11:30 MPV 10.2 fl (8-11.3) 03/29/18 11:30 Neutrophils % (Manual) 85 % (42-75) H 03/29/18 11:30 Band Neuts % (Manual) 2 % (0-2.0) 03/29/18 11:30 Lymphocytes % (Manual) 5 % (20-51) L 03/29/18 11:30 Monocytes % (Manual) 1 % (0-9) 03/29/18 11:30 Immature Granulocytes 7 (0-1) H 03/29/18 11:30 Neutrophils # (Manual) 17.0 K/mm3 (1.3-6.0) H 03/29/18 11:30 Lymphocytes # (Manual) 1.0 k/mm3 (1.5-3.5) L 03/29/18 11:30 Monocytes # (Manual) 0.2 k/mm3 (0.0-1.0) 03/29/18 11:30 Platelet Estimate Increased (NORMAL) H 03/29/18 11:30 Polychromasia 1+ 03/29/18 11:30 Hypochromasia 2+ 03/29/18 11:30 Macrocytosis 1+ 03/29/18 11:30 Target Cells 1+ 03/29/18 11:30 Sodium 149 mmol/L (132-142) H 03/29/18 11:30 Plasma Sodium 150 mmol/L (130-142) H 03/29/18 11:30 Potassium 4.0 mmol/L (3.4-4.6) 03/29/18 11:30 Chloride 110 mmol/L (97-106) H 03/29/18 11:30 Carbon Dioxide 24.9 mmol/L (24-32.6) 03/29/18 11:30 Anion Gap 18.1 mmol/L (6.8-13.8) H 03/29/18 11:30 BUN 103 mg/dL (6-23) H D 03/29/18 11:30 Creatinine 1.80 mg/dL (0.4-1.4) H 03/29/18 11:30 Est GFR (Non-Af Amer) 38 mL/min (60-130) L D 03/29/18 11:30 BUN/Creatinine Ratio 57.2 (9.0-21.6) H 03/29/18 11:30 Random Glucose 138 mg/dL (70-110) H 03/29/18 11:30 Lactic Acid, Venous 2.0 mmol/L (0.4-2.0) 03/29/18 13:00 Calcium 8.6 mg/dL (7.9-10.9) 03/29/18 11:30 Calcium Adj for Albumin 9.6 mg/dL (8.4-10.2) 03/29/18 11:30 Magnesium 2.1 mg/dL (1.2-2.8) 03/29/18 11:30 Total Bilirubin 0.2 mg/dL (0.0-1.1) 03/29/18 11:30 AST 14 U/L (0-48) 03/29/18 11:30 ALT 11 U/L (19-67) L 03/29/18 11:30 Alkaline Phosphatase 43 U/L (50-170) L 03/29/18 11:30 B-Natriuretic Peptide 1168 pg/mL (5-650) H 03/29/18 11:52 Total Protein 5.0 gm/dL (6.2-8.2) L 03/29/18 11:30 Albumin 2.4 gm/dl (3.4-5.0) L 03/29/18 11:30 Urine Color Yellow 03/29/18 13:13 Urine Appearance Clear (CLEAR) 03/29/18 13:13 Urine pH 5.5 pH (5.0-7.0) 03/29/18 13:13 Ur Specific [place] 1.025 SP.GR. (1.005-1.030) 03/29/18 13:13 Urine Protein 100 mg/dL (NEGATIVE) H 03/29/18 13:13 Urine Glucose (UA) Negative mg/dL (NEGATIVE) 03/29/18 13:13 Urine Ketones Negative mg/dL (NEGATIVE) 03/29/18 13:13 Urine Blood Negative /ul (NEGATIVE) 03/29/18 13:13 Urine Nitrate Negative (NEGATIVE) 03/29/18 13:13 Urine Bilirubin Negative mg/dl (NEGATIVE) 03/29/18 13:13 Prot Sulfosalicylic Acd 1+ mg/dL (0) 03/29/18 13:13 Urine Urobilinogen Normal EU/dl (NORMAL) 03/29/18 13:13 Ur Leukocyte Esterase Negative /ul (NEGATIVE) 03/29/18 13:13 Urine RBC None seen /hpf (0-5) 03/29/18 13:13 Urine WBC 0-5 /hpf (0-5) 03/29/18 13:13 Ur Epithelial Cells 0-5 /hpf (0-5) 03/29/18 13:13 Urine Bacteria Trace (NONE) 03/29/18 13:13 Urine Culture Comments Culture to follow 03/29/18 13:13 Stool Occult Blood Positive H 03/29/18 12:36 Blood Type A Positive 03/29/18 12:00 Antibody Screen Negative 03/29/18 12:00 Crossmatch See Detail 03/29/18 12:00 Assessment/Plan - Assessment/Plan (1) Anemia Assessment: He is receiving the first of 2 ordered PRBC. Recheck H&H one hour after his second unit has finished. Will need to watch closely for fluid overload. May have B12 or folate deficiency. His albumin is low, so poor nutrition is definite possibility. His hemoccult was also positive. Discussed interventions with his son, his POA, who does not think he would want colonoscopy. Problem: Acute Qualifiers: Anemia type: unspecified type Qualified Code(s): D64.9 - Anemia, unspecified (2) Acute alteration in mental status Assessment: Likely secondary to his anemia, but will continue to assess. Q4H neuro checks. CT head pending as he is at higher risk for stroke due to his afib. Problem: Acute (3) Hypernatremia Problem: Acute (4) Atrial fibrillation Assessment: continue eliquis and metoprolol. Problem: Chronic Qualifiers: Atrial fibrillation type: unspecified Qualified Code(s): I48.91 - Uns pecified atrial fibrillation (5) History of esophageal stricture Assessment: Crush meds, and continue mechanical soft diet. Problem: Chronic (6) Leukocytosis Assessment: Urine, blood cultures pending. Problem: Acute Qualifiers: Leukocytosis type: unspecified Qualified Code(s): D72.829 - Elevated white blood cell count, unspecified (7) Acute renal insufficiency Assessment: Creatinine 1.8, increased from his baseline of around 1.2. Recheck in the morning after PRBC. Problem: Acute
[2018-03-29] MEDS ORDERED: ALBUTEROL SULFATE/IPRATROPIUM 3 ML NEBU IH PRN (17:08)
[2018-03-29] MEDS ORDERED: MENTHOL TP PRN (17:08)
[2018-03-29] MEDS ORDERED: DOCUSATE SODIUM 100 MG CAPSULE PO PRN (17:08)
[2018-03-29] MEDS: ACETAMINOPHEN 325 MG TABLET PO SCH (18:48)
[2018-03-29] MEDS: amLODIPine BESYLATE 5 MG TABLET PO SCH (18:51)
[2018-03-29] MEDS: CEPHALEXIN MONOHYDRATE 500 MG CAPSULE PO SCH (20:58)
[2018-03-29] MEDS: TAMSULOSIN HCL 0.4 MG CAP.SR.24H PO SCH (20:59)
[2018-03-29] MEDS ORDERED: APIXABAN 5 MG TABLET PO SCH (21:00)
[2018-03-29] MEDS: PROBENECID 500 MG TABLET PO SCH (21:00)
[2018-03-29] MEDS: METOPROLOL TARTRATE 100 MG TABLET PO SCH (21:01)
[2018-03-29 21:14] LABS: Hemoglobin 6.2 gm/dL (13.5-18.0)
[2018-03-29 21:15] LABS: Hematocrit 18.8 % (42.0-52.0)
[2018-03-30 06:15] LABS: Mean Cell Volume 104.6 fl (78-100); Mean Corpuscular Hemoglobin 34.9 pg (27-31); Mean Corpuscular Hgb Conc 33.3 g/dl (32-36); Mean Platelet Volume 9.8 fl (8-11.3); Platelet Count 645 K/mm3 (150-450); Red Blood Count 2.18 M/mm3 (4.7-6.0); Red Cell Distribution Width 25.7 % (11.5-14.0)
[2018-03-30 06:24] LABS: Hematocrit 24.1 % (42.0-52.0)
[2018-03-30 06:26] LABS: Albumin * 2.2 gm/dl (3.4-5.0); Anion Gap 14.7 mmol/L (6.8-13.8); BUN/Creatinine Ratio 63.3 (9.0-21.6); Bilirubin, Total 0.3 mg/dL (0.0-1.1); Ca. Corrected For Albumin 9.5 mg/dL (8.4-10.2); Calcium * 8.4 mg/dL (7.9-10.9); Carbon Dioxide 28.5 mmol/L (24-32.6); Potassium 3.2 mmol/L (3.4-4.6); Total Cells Counted 100; Total Protein 4.9 gm/dL (6.2-8.2)
[2018-03-30 06:48] LABS: Band 4 % (0-2.0); Immature Granulocyte 7 (0-1); Lymphocyte 11 % (20-51); Monocyte 2 % (0-9); Neutrophil 76 % (42-75); Neutrophil # 15.2 K/mm3 (1.3-6.0)
[2018-03-30 06:49] LABS: Hypochromia 1+; Macrocytosis 1+; Platelet Estimate Normal (NORMAL); Polychromasia 1+
--- NOTE | 2018-03-30 07:14 | PN ---
Subjective - Date and Time Seen Date: 03/30/18 Time: 07:14 Subjective Narrative: Per his nurse, his mentation improved after receiving one of his three units of PRBC. He had formed brown stool this morning, but also had coffee ground emesis. He reports being thirsty, and having aching legs. Objective - Review of Systems Generalized/Overall Review: Denies: Fever Respiratory: Denies: Cough Cardiac: Reports: Edema. Denies: Chest Pain Abdominal: Reports: Vomiting. Denies: Melena Musculoskeletal Complaints: Reports: Other - leg aching - Vitals Vitals: Last Vital Signs Temp 36.8 C 03/30/18 04:40 Pulse 72 03/30/18 04:40 Resp 20 03/30/18 04:40 BP 133/54 03/30/18 04:40 Pulse Ox 98 03/30/18 04:40 - Abnormal Lab Findings Abnormal Lab Findings: Abnormal Lab Results 03/29/18 03/29/18 03/29/18 Range/Units 10:16 11:30 11:30 WBC 20.0 H (4.0-10.5) K/mm3 RBC 1.53 L (4.7-6.0) M/mm3 Hgb 6.2 L* D (13.5-18.0) gm/dL Hct 19.4 L* D (42.0-52.0) % MCV 126.8 H (78-100) fl MCH 40.5 H (27-31) pg RDW 14.6 H (11.5-14.0) % Plt Count 625 H (150-450) K/mm3 Neutrophils % (Manual) 85 H (42-75) % Band Neuts % (Manual) (0-2.0) % Lymphocytes % (Manual) 5 L (20-51) % Immature Granulocytes 7 H (0-1) Neutrophils # (Manual) 17.0 H (1.3-6.0) K/mm3 Lymphocytes # (Manual) 1.0 L (1.5-3.5) k/mm3 Platelet Estimate Increased H (NORMAL) Sodium 149 H (132-142) mmol/L Plasma Sodium 150 H (130-142) mmol/L Potassium (3.4-4.6) mmol/L Chloride 110 H (97-106) mmol/L Anion Gap 18.1 H (6.8-13.8) mmol/L BUN 103 H D (6-23) mg/dL Creatinine 1.80 H (0.4-1.4) mg/dL Est GFR (Non-Af Amer) 38 L D (60-130) mL/min BUN/Creatinine Ratio 57.2 H (9.0-21.6) Random Glucose 138 H (70-110) mg/dL Lactic Acid, Venous 2.2 H* (0.4-2.0) mmol/L ALT 11 L (19-67) U/L Alkaline Phosphatase 43 L (50-170) U/L B-Natriuretic Peptide (5-650) pg/mL Total Protein 5.0 L (6.2-8.2) gm/dL Albumin 2.4 L (3.4-5.0) gm/dl Urine Protein (NEGATIVE) mg/dL Stool Occult Blood Crossmatch 03/29/18 03/29/18 03/29/18 Range/Units 11:52 12:00 12:36 WBC (4.0-10.5) K/mm3 RBC (4.7-6.0) M/mm3 Hgb (13.5-18.0) gm/dL Hct (42.0-52.0) % MCV (78-100) fl MCH (27-31) pg RDW (11.5-14.0) % Plt Count (150-450) K/mm3 Neutrophils % (Manual) (42-75) % Band Neuts % (Manual) (0-2.0) % Lymphocytes % (Manual) (20-51) % Immature Granulocytes (0-1) Neutrophils # (Manual) (1.3-6.0) K/mm3 Lymphocytes # (Manual) (1.5-3.5) k/mm3 Platelet Estimate (NORMAL) Sodium (132-142) mmol/L Plasma Sodium (130-142) mmol/L Potassium (3.4-4.6) mmol/L Chloride (97-106) mmol/L Anion Gap (6.8-13.8) mmol/L BUN (6-23) mg/dL Creatinine (0.4-1.4) mg/dL Est GFR (Non-Af Amer) (60-130) mL/min BUN/Creatinine Ratio (9.0-21.6) Random Glucose (70-110) mg/dL Lactic Acid, Venous (0.4-2.0) mmol/L ALT (19-67) U/L Alkaline Phosphatase (50-170) U/L B-Natriuretic Peptide 1168 H (5-650) pg/mL Total Protein (6.2-8.2) gm/dL Albumin (3.4-5.0) gm/dl Urine Protein (NEGATIVE) mg/dL Stool Occult Blood Positive H Crossmatch See Detail 03/29/18 03/29/18 03/30/18 Range/Units 13:13 21:00 06:00 WBC 20.0 H (4.0-10.5) K/mm3 RBC 2.18 L (4.7-6.0) M/mm3 Hgb 6.2 L* 8.0 L (13.5-18.0) gm/dL Hct 18.8 L* 24.1 L (42.0-52.0) % MCV 104.6 H (78-100) fl MCH 34.9 H (27-31) pg RDW 25.7 H (11.5-14.0) % Plt Count 645 H (150-450) K/mm3 Neutrophils % (Manual) 76 H (42-75) % Band Neuts % (Manual) 4 H (0-2.0) % Lymphocytes % (Manual) 11 L (20-51) % Immature Granulocytes 7 H (0-1) Neutrophils # (Manual) 15.2 H (1.3-6.0) K/mm3 Lymphocytes # (Manual) (1.5-3.5) k/mm3 Platelet Estimate (NORMAL) Sodium (132-142) mmol/L Plasma Sodium (130-142) mmol/L Potassium (3.4-4.6) mmol/L Chloride (97-106) mmol/L Anion Gap (6.8-13.8) mmol/L BUN (6-23) mg/dL Creatinine (0.4-1.4) mg/dL Est GFR (Non-Af Amer) (60-130) mL/min BUN/Creatinine Ratio (9.0-21.6) Random Glucose (70-110) mg/dL Lactic Acid, Venous (0.4-2.0) mmol/L ALT (19-67) U/L Alkaline Phosphatase (50-170) U/L B-Natriuretic Peptide (5-650) pg/mL Total Protein (6.2-8.2) gm/dL Albumin (3.4-5.0) gm/dl Urine Protein 100 H (NEGATIVE) mg/dL Stool Occult Blood Crossmatch 03/30/18 Range/Units 06:00 WBC (4.0-10.5) K/mm3 RBC (4.7-6.0) M/mm3 Hgb (13.5-18.0) gm/dL Hct (42.0-52.0) % MCV (78-100) fl MCH (27-31) pg RDW (11.5-14.0) % Plt Count (150-450) K/mm3 Neutrophils % (Manual) (42-75) % Band Neuts % (Manual) (0-2.0) % Lymphocytes % (Manual) (20-51) % Immature Granulocytes (0-1) Neutrophils # (Manual) (1.3-6.0) K/mm3 Lymphocytes # (Manual) (1.5-3.5) k/mm3 Platelet Estimate (NORMAL) Sodium 150 H (132-142) mmol/L Plasma Sodium 151 H (130-142) mmol/L Potassium 3.2 L (3.4-4.6) mmol/L Chloride 110 H (97-106) mmol/L Anion Gap 14.7 H (6.8-13.8) mmol/L BUN 126 H D (6-23) mg/dL Creatinine 1.99 H (0.4-1.4) mg/dL Est GFR (Non-Af Amer) 34 L (60-130) mL/min BUN/Creatinine Ratio 63.3 H (9.0-21.6) Random Glucose 142 H (70-110) mg/dL Lactic Acid, Venous (0.4-2.0) mmol/L ALT 12 L (19-67) U/L Alkaline Phosphatase 43 L (50-170) U/L B-Natriuretic Peptide (5-650) pg/mL Total Protein 4.9 L (6.2-8.2) gm/dL Albumin 2.2 L (3.4-5.0) gm/dl Urine Protein (NEGATIVE) mg/dL Stool Occult Blood Crossmatch - Exam Constitutional: Present: Elderly Respiratory: Present: no respiratory distress, other - diminished lung sounds of right lower lobe Abdomen: Present: soft, tender Extremity: Present: lower extremity edema - 1+ bilaterally, unchanged Eye contact: Present: other - makes eye contact. Speech difficult to understand Assessment/Plan - Problems/Diagnosis (1) GI bleed Problem: Acute Qualifiers: GI bleed type/associated pathology: gastrointestinal hemorrhage with hematemesis Qualified Code(s): K92.0 - Hematemesis Narrative: Received three units PRBC since admission early yesterday afternoon, and Hgb of 8.0 this morning. Will recheck this afternoon. IV protonix has been started, and will change his diet to NPO, sips of water with meds. BP, HR are within normal range. QT not prolonged, and zofran has been ordered. Eliquis is held, and will discuss stopping it indefinitely with his POA. Briefly discussed potential surgical consult with his son yesterday, who does not want aggressive treatment done, but wants him to be comfortable overall. If he is actively losing blood, will revisit the option of surgical consult with his son, his POA. (2) Anemia Problem: Acute Qualifiers: Anemia type: other cause (3) Acute alteration in mental status Problem: Acute Narrative: improved from admission. CT head still pending. Likely secondary to significant anemia. (4) Hypernatremia Problem: Acute (5) Atrial fibrillation Problem: Chronic Qualifiers: Atrial fibrillation type: unspecified Qualified Code(s): I48.91 - Unspecified atrial fibrillation Narrative: Will need to discuss potentially stopping anticoagulation with his POA, as he has an active GI bleed. (6) History of esophageal stricture Problem: Chronic Narrative: He has intermittent choking with swallowing. Currently NPO, sips of water with meds. Crush medications. (7) Leukocytosis Problem: Acute Qualifiers: Leukocytosis type: unspecified Qualified Code(s): D72.829 - Elevated white blood cell count, unspecified (8) Acute renal insufficiency Problem: Acute Narrative: Creatinine increased to 1.99. Will gently administer fluids, as he will be NPO. Recheck in am.
[2018-03-30] MEDS ORDERED: ONDANSETRON HCL/PF 2 MG/ML VIAL IV PRN (07:36)
[2018-03-30] MEDS ORDERED: NORMAL SALINE 1,000 ML IV ONE ×2 (07:40→15:41)
[2018-03-30] MEDS: PANTOPRAZOLE SODIUM 40 MG in NORMAL SALINE 100 ML IV SCH (07:57)
[2018-03-30] MEDS ORDERED: FAMOTIDINE 20 MG TABLET PO SCH (09:00)
[2018-03-30] MEDS: HYDROXYUREA 500 MG CAPSULE PO SCH (09:38)
[2018-03-30] MEDS: ACETAMINOPHEN 325 MG TABLET PO SCH ×3 (09:38→17:39)
[2018-03-30] MEDS: FINASTERIDE 5 MG TABLET PO SCH (09:38)
[2018-03-30] MEDS: FUROSEMIDE 40 MG TABLET PO SCH (09:38)
[2018-03-30] MEDS: amLODIPine BESYLATE 5 MG TABLET PO SCH (09:38)
[2018-03-30] MEDS: METOPROLOL TARTRATE 100 MG TABLET PO SCH ×2 (09:38→22:25)
[2018-03-30] MEDS: LISINOPRIL 40 MG TABLET PO SCH (09:39)
[2018-03-30] MEDS: CEPHALEXIN MONOHYDRATE 500 MG CAPSULE PO SCH ×2 (09:45→22:26)
[2018-03-30] MEDS: DIGOXIN 0.125 MG TABLET PO SCH (09:45)
[2018-03-30 14:31] LABS: Hematocrit 20.1 % (42.0-52.0); Hemoglobin 6.7 gm/dL (13.5-18.0)
--- NOTE | 2018-03-30 15:33 | ANES ---
Anesthesia Pre Procedure Eval Vitals/Labs: Last Vital Signs Temp 36.7 C 03/30/18 15:25 Pulse 79 03/30/18 15:25 Resp 20 03/30/18 15:25 BP 144/52 03/30/18 15:25 Pulse Ox 98 03/30/18 15:25 HOME MEDICATIONS Finasteride [Proscar] 5 mg PO DAILY 06/09/16 [Last Taken Unknown] Hydroxyurea [Hydrea] 500 mg PO DAILY 06/09/16 [Last Taken Unknown] Lisinopril [Zestril] 40 mg PO DAILY 06/09/16 [Last Taken Unknown] Multivitamin [Multivitamins] 1 ea PO DAILY 06/09/16 [Last Taken Unknown] Potassium Chloride 20 meq PO DAILY 06/09/16 [Last Taken Unknown] Tamsulosin HCl 0.4 mg PO HS 06/09/16 [Last Taken Unknown] amLODIPine BESYLATE [Norvasc] 10 mg PO DAILY 08/02/17 [Last Taken Unknown] acetaminophen 325 mg tablet 650 mg PO TID 09/27/17 [Last Taken Unknown] apixaban 5 mg tablet 5 mg PO BID 09/27/17 [Last Taken Unknown] aspirin 81 mg tablet,delayed release 81 mg PO DAILY 09/27/17 [Last Taken Unknown] calcium polycarbophil 625 mg tablet 1,250 mg PO BID 09/27/17 [Last Taken Unknown] digoxin 125 mcg tablet 0.125 mg PO .COMPLEX 09/27/17 [Last Taken Unknown] docusate sodium 100 mg tablet 200 mg PO BID PRN tab 09/27/17 [Last Taken Unknown] ipratropium-albuterol 0.5 mg-3 mg(2.5 mg base)/3 mL nebulization soln 3 ml IH QID PRN 09/27/17 [Last Taken Unknown] lidocaine 4 % topical cream 1 applic TP TID 09/27/17 [Last Taken Unknown] menthol 4 % topical gel 1 % TP Q8H PRN ml 09/27/17 [Last Taken Unknown] probenecid 500 mg tablet 250 mg PO BID tab 09/27/17 [Last Taken Unknown] Furosemide [Lasix] 40 mg PO DAILY #30 tab 11/12/17 [Last Taken Unknown] Metoprolol Tartrate [Lopressor] 100 mg PO BID tab 11/12/17 [Last Taken Unknown] ranitidine 150 mg tablet 150 mg PO DAILY #30 tab 02/07/18 [Last Taken Unknown] cephalexin 500 mg capsule 500 mg PO BID 10 Days #20 cap 03/25/18 [Last Taken Unknown] gabapentin 100 mg capsule 100 mg PO TID 03/28/18 [Last Taken Unknown] neomycin 3.5 mg-bacitracn Zn 400 unit-polymyxin 5,000 unit/g top spray 1 g TP TID g 03/28/18 [Last Taken Unknown] Allergies/Adverse Reactions: Allergies Allergy/AdvReac Type Severity Reaction Status Date / Time codeine Allergy Severe Swelling Verified 03/29/18 13:36 (Other) - Planned Procedure Planned Procedure: EGD Medication List Reviewed:: Yes Allergies Verified: Yes Medical History (Last Reviewed 03/30/18 @ 15:33 by Petey Ramirez CRNA) CKD (chronic kidney disease) stage 3, GFR 30-59 ml/min Onset Date: Unknown Dysphagia Onset Date: 03/25/10 GERD (gastroesophageal reflux disease) Onset Date: Unknown Hyperlipidemia Onset Date: Unknown Hypertension Onset Date: Unknown Foreign body in digestive tract Onset Date: 03/25/10 Hypokalemia Onset Date: Unknown TIA (transient ischemic attack) Onset Date: 1998 Surgical History (Last Reviewed 03/30/18 @ 15:33 by Petey Ramirez CRNA) H/O colonoscopy Onset Date: 2008 H/O eye surgery Onset Date: 1948 H/O hernia repair Onset Date: Unknown 1 single and 1 double repair. History of bladder surgery Onset Date: Unknown History of esophagogastroduodenoscopy (EGD) Onset Date: 06/09/16 Hx of tonsillectomy Onset Date: Unknown Family History (Last Reviewed 03/30/18 @ 15:33 by Petey Ramirez CRNA) Father Cancer Mother Heart disease Diabetes - Family Anesthesia History Family History:: no untoward family reactions to anesthesia, no familial bleeding tendencies, no family history of clotting disorders, no family history of premature - Airway/Neck/Teeth Within Normal Limits:: Yes Mallampatti Score: 2 Thyromental (T-M) distance: > 6 cm Mandibulo Hyoid distance: > 3 cm - Respiratory Respiratory Physical: lungs clear Discussed smoking cessation including day of surgery: No Sleep Apnea currently treated: No Sleep Apnea by current assessment: No Discussed Risks/Treatment of ILANNE: No - Cardiovascular Tolerate Activity: Poor Heart Sounds: S1 & S2, Regular - Anesthesia Assessment and Plan ASA Class: PS, III, E Anesthesia Type Plan: MAC
--- NOTE | 2018-03-30 16:21 | ANES ---
Post Anesthesia Assessment - Vital Signs Vitals: Last Vital Signs Temp 37.6 C 03/30/18 16:15 Pulse 78 03/30/18 16:15 Resp 16 03/30/18 16:15 BP 128/55 03/30/18 16:15 Pulse Ox 99 03/30/18 16:15 Airway Patency: Normal - Mental Status Level Of Consciousness: Awake - Pain Level Pain Score: 0 - N/V Assessment Nausea/Vomiting Presence: None Dehydration:: No
--- NOTE | 2018-03-30 16:21 | ANES ---
Post Anesthesia Discharge - Transfer of Care Transfer of Care handoff given to nurse: Yes - Discharge from PACU Discharge from PACU when meets criteria: Yes - Discharge to ASU Discharge to ASU-no complications/pt stable: Yes
--- NOTE | 2018-03-30 16:40 | CONS ---
HPI - General Date of Service: 03/30/18 Source: patient, family, RN/MD, RN notes reviewed, old records Exam Limitations: other - hard of hearing and difficult historian - History of Present Illness Initial Comments: The patient is a resident of [facility], who was brought to the ER due to some confusion and difficulty walking. On evaluation he was found to have a hemoglobin of 6.2. He is chronically anemic but this is a marked decrease. 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 The patient reports that between and Wednesday of last week he was having trouble swallowing and felt something was stuck, but it passed on Wednesday. After admission he vomited coffee ground material. He denies chest or abdominal pain currently. His main complaint is shooting pains in the left leg. Allergies/Adverse Reactions: Allergies codeine Allergy (Severe, Verified 03/29/18 13:36) Swelling (Other) Home Medications: Home Medications Medication Instructions Recorded Last Taken Finasteride [Proscar] 5 mg PO DAILY 06/09/16 Unknown Hydroxyurea [Hydrea] 500 mg PO DAILY 06/09/16 Unknown Lisinopril [Zestril] 40 mg PO DAILY 06/09/16 Unknown Multivitamin [Multivitamins] 1 ea PO DAILY 06/09/16 Unknown Potassium Chloride 20 meq PO DAILY 06/09/16 Unknown Tamsulosin HCl 0.4 mg PO HS 06/09/16 Unknown amLODIPine BESYLATE [Norvasc] 10 mg PO DAILY 08/02/17 Unknown acetaminophen 325 mg tablet 650 mg PO TID 09/27/17 Unknown apixaban 5 mg tablet 5 mg PO BID 09/27/17 Unknown aspirin 81 mg tablet,delayed 81 mg PO DAILY 09/27/17 Unknown release calcium polycarbophil 625 mg tablet 1,250 mg PO BID 09/27/17 Unknown digoxin 125 mcg tablet 0.125 mg PO .COMPLEX 09/27/17 Unknown docusate sodium 100 mg tablet 200 mg PO BID PRN tab 09/27/17 Unknown ipratropium-albuterol 0.5 mg-3 3 ml IH QID PRN 09/27/17 Unknown mg(2.5 mg base)/3 mL nebulization soln lidocaine 4 % topical cream 1 applic TP TID 09/27/17 Unknown menthol 4 % topical gel 1 % TP Q8H PRN ml 09/27/17 Unknown probenecid 500 mg tablet 250 mg PO BID tab 09/27/17 Unknown Furosemide [Lasix] 40 mg PO DAILY #30 tab 11/12/17 Unknown Metoprolol Tartrate [Lopressor] 100 mg PO BID tab 11/12/17 Unknown ranitidine 150 mg tablet 150 mg PO DAILY #30 tab 02/07/18 Unknown cephalexin 500 mg capsule 500 mg PO BID 10 Days #20 cap 03/25/18 Unknown gabapentin 100 mg capsule 100 mg PO TID 03/28/18 Unknown neomycin 3.5 mg-bacitracn Zn 400 1 g TP TID g 03/28/18 Unknown unit-polymyxin 5,000 unit/g top spray Procedures Application of other cast (04/17/00) Closed [endoscopic] biopsy of esophagus (10/30/02) Excision of Esophagus, Via Natural or Artificial Opening Endoscopic, Diagnostic (11/19/17) Extirpation of Matter from Esophagogastric Junction, Via Natural or Artificial Opening Endoscopic (06/09/16) Gastric lavage (10/30/02) Other endoscopy of small intestine (03/24/10) Removal of intraluminal foreign body from esophagus without incision (03/24/10) Suture of laceration of nose (04/17/00) Medications - Medications Current Medications: Current Medications Acetaminophen (Tylenol) 650 mg PO TID [facility] Stop: 04/28/18 17:16 Last Admin: 03/30/18 13:09 Dose: Not Given Documented by: Cephalexin (Keflex) 500 mg PO BID [facility]; Protocol Stop: 04/28/18 21:01 Last Admin: 03/30/18 09:45 Dose: 500 mg Documented by: Digoxin (Lanoxin) 0.125 mg PO [id number] [facility] Stop: 04/29/18 09:01 Last Admin: 03/30/18 09:45 Dose: 0.125 mg Documented by: Finasteride (Proscar) 5 mg PO DAILY [facility] Stop: 04/29/18 09:01 Last Admin: 03/30/18 09:38 Dose: Not Given Documented by: Furosemide (Lasix) 40 mg PO DAILY [facility] Stop: 04/29/18 09:01 Last Admin: 03/30/18 09:38 Dose: Not Given Documented by: Hydroxyurea (Hydrea) 500 mg PO DAILY [facility] Stop: 04/29/18 09:01 Last Admin: 03/30/18 09:38 Dose: Not Given Documented by: Pantoprazole Sodium 40 mg/ (Sodium Chloride) 100 mls @ 400 mls/hr IV Q24H [facility] Stop: 04/29/18 07:16 Last Infusion: 03/30/18 08:12 Dose: Infused Documented by: Lisinopril (Zestril) 40 mg PO DAILY [facility] Stop: 04/29/18 09:01 Last Admin: 03/30/18 09:39 Dose: Not Given Documented by: Metoprolol Tartrate (Lopressor) 100 mg PO BID [facility] Stop: 04/28/18 21:01 Last Admin: 03/30/18 09:38 Dose: Not Given Documented by: Probenecid (Probenecid) 250 mg PO BID [facility] Stop: 04/28/18 21:01 Last Admin: 03/29/18 21:00 Dose: 250 mg Documented by: Tamsulosin HCl (Flomax) 0.4 mg PO HS [facility] Stop: 04/28/18 21:01 Last Admin: 03/29/18 20:59 Dose: 0.4 mg Documented by: Review of Systems - Review of Systems Generalized/Overall Review: Present: Weakness. Absent: Chills, Fever EENTM: Present: No Symptoms Reported Respiratory: Present: No Symptoms Reported. Absent: Cough Cardiac: Present: Edema. Absent: Chest Pain Abdominal: Present: Other - No iveth abdominal discomfort. He vomited coffee- ground material earlier today Genitourinary: Absent: Burning Musculoskeletal: Present: Other - He is having shooting pains in both feet left greater than right Neurological: Present: Weakness. Absent: Headache Skin: Present: Dryness Physical Examination - Exam Vital Signs: Vital Signs - Last Taken Temp 36.7 C 03/30/18 10:52 Pulse 78 03/30/18 10:52 Resp 20 03/30/18 10:52 BP 129/55 03/30/18 10:52 Pulse Ox 100 03/30/18 10:52 O2 Oxygen Delivery Method Room Air Constitutional: Present: Alert, Cooperative, Other - He answers questions. He is hard of hearing. Intermittently winces with pain in the left foot, Elderly ENT Exam: Present: dry mucous membranes, other - Right esotropia Eye Exam: right eye: abnormal EOM Neck: Present: normal inspection, limited range of motion Respiratory: Present: no respiratory distress Cardiovascular/Chest: Present: regular rate, rhythm Abdomen: Present: soft, nontender, other - Tympanitic /Rectal: Present: Exam deferred Extremity: Present: lower extremity edema Skin Exam: Present: warm/dry, pallor 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: alert Appearance: Present: other - Hard of hearing some difficulty with memory Eye contact: Present: cooperative, good eye contact, other - Somewhat garbled speech Thoughts: Present: other - Slow to answer but appropriate - Results and Findings: Lab/Microbiology results last 24 hrs: Abnormal/Pending Laboratory Last 24 HRS 03/30/18 03/30/18 03/30/18 14:10 07:22 06:00 WBC RBC Hgb 6.7 L* Hct 20.1 L* MCV MCH RDW Plt Count Neutrophils % (Manual) Band Neuts % (Manual) Lymphocytes % (Manual) Immature Granulocytes Neutrophils # (Manual) Sodium 150 H Plasma Sodium 151 H Potassium 3.2 L Chloride 110 H Anion Gap 14.7 H BUN 126 H D Creatinine 1.99 H Est GFR (Non-Af Amer) 34 L BUN/Creatinine Ratio 63.3 H Random Glucose 142 H ALT 12 L Alkaline Phosphatase 43 L Total Protein 4.9 L Albumin 2.2 L Gastric Occult Blood Positive H Crossmatch 03/30/18 03/29/18 03/29/18 06:00 21:00 12:00 WBC 20.0 H RBC 2.18 L Hgb 8.0 L 6.2 L* Hct 24.1 L 18.8 L* MCV 104.6 H MCH 34.9 H RDW 25.7 H Plt Count 645 H Neutrophils % (Manual) 76 H Band Neuts % (Manual) 4 H Lymphocytes % (Manual) 11 L Immature Granulocytes 7 H Neutrophils # (Manual) 15.2 H Sodium Plasma Sodium Potassium Chloride Anion Gap BUN Creatinine Est GFR (Non-Af Amer) BUN/Creatinine Ratio Random Glucose ALT Alkaline Phosphatase Total Protein Albumin Gastric Occult Blood Crossmatch See Detail Culture 03/29/18 11:45 Blood Culture - Preliminary Blood NO GROWTH 24 HOURS 03/29/18 11:30 Blood Culture - Preliminary Blood NO GROWTH 24 HOURS 03/29/18 13:37 - Final Nares MRSA Negative 03/29/18 13:09 Urine Culture - Preliminary Urine,Catheterized No Growth - Assessments/Findings (1) GI bleed Diagnosis(s): He has an acute on chronic anemia with coffee-ground emesis and multiple previous episodes of esophageal obstruction from stricture. I do not have a record of his last colon exam however there is not been any red blood per rectum. He is hemodynamically stable. Would recommend EGD. Pamphlets on EGD/GERD were reviewed with the patient and his family. The risks and possible complications as well as the benefit of the procedure was explained in detail. After interactive discussion their questions were answered to their apparent satisfaction and informed consent was obtained for EGD which will be performed shortly. Problem: Acute Qualifiers: GI bleed type/associated pathology: gastrointestinal hemorrhage with hematemesis Qualified Code(s): K92.0 - Hematemesis
--- NOTE | 2018-03-30 17:06 | OR ---
Operative Report - Dictated Report Narrative: Operative Report Date of operation: 03/30/2018 Preoperative diagnosis: GI bleeding, anemia Postoperative diagnosis: Mid esophageal stricture. GE junction ulcer with clot (pathology pending). Hiatal hernia. Gastropathy (pathology and CLOtest pending) Operation: EGD with biopsies Surgeon: Dr Elliott Anesthesia: ANGELIQUE Ramirez CRNA Indications for procedure: The patient is an 87-year-old male well-known to me from previous episodes of esophageal obstruction from foreign body impaction on a mid esophageal stricture. He was brought to the emergency room for increased confusion and difficulty walking. He was found to have profound anemia. This morning he vomited coffee-ground material. Findings: Mid esophageal benign-appearing esophageal stricture. Ulcer at the GE junction with adherent clot suggesting recent bleeding. Hiatal hernia. Gastropathy. Normal duodenum Narrative of procedure: The patient was identified preoperatively, and prior to the administration of anesthetic a multidisciplinary timeout was observed With the patient in the recumbent position, a bite-block was placed, intravenous sedation administered, and the patient's eyes covered with a towel. The flexible fiberoptic gastroscope was advanced into the posterior pharynx which appeared normal with the exception of adherent coffee ground vomitus. The supraglottic larynx appeared normal. The cords appeared normal, moved well, and opposed in the midline. The scope was advanced under direct vision into the proximal esophagus which appeared normal. In the middle third of the esophagus was a benign-appearing esophageal stricture which readily admitted the endoscope. The esophagus appeared otherwise freely distensible with normal mucosa. The esophageal mucosa appeared normal down to the gastroesophageal junction which was sharp. There was an esophageal ulcer with adherent clot just at the GE junction. The GE junction appeared normally distensible. There was a sliding hiatal hernia. The scope was advanced into the stomach proper which was insufflated with air. The stomach was mildly erythematous however no iveth ulcerations or neoplastic lesions were appreciated including retroflexed view of the gastric fundus. There was coffee ground material present. The scope was redirected toward the pylorus. The pylorus appeared patent. The scope was advanced into the duodenal bulb which appeared normal. The scope was advanced further to the horizontal portion of the duodenum which appeared normal, specifically the villous architecture appeared well preserved and clear bile was present. The scope was slowly withdrawn through the duodenal bulb with c onfirmation that no active ulcer was present. The scope was withdrawn into the stomach and international sales representative biopsies of gastric mucosa obtained for CLOtest and pathology. The biopsy sites were seen to be hemostatic. The insufflated air was removed from the stomach and the scope withdrawn to the distal esophagus. Photographs of the ulcer were obtained. The border of the ulcer was biopsied. The biopsy site appeared hemostatic. The insufflated air was again removed, the scope was withdrawn slowly confirming the benign appearance of the mid esophageal stricture. The scope was then withdrawn from the patient, and the procedure terminated. The patient tolerated the anesthetic and procedure well without complication and was transferred back to the floor area awake and in stable condition. I shared the operative findings with the patient and his family, and he was given copies of the photographs which appear in the medical record. I discussed the findings with Dr. Delarosa. He may be begun on clear liquids with medical management pending biopsy reports and response to transfusion. Reviewed and electronically signed
[2018-03-30 19:04] LABS: Hematocrit 24.5 % (42.0-52.0)
[2018-03-30 19:11] LABS: Hemoglobin 7.8 gm/dL (13.5-18.0)
[2018-03-30] MEDS: TAMSULOSIN HCL 0.4 MG CAP.SR.24H PO SCH (22:25)
[2018-03-31 02:52] LABS: Hematocrit 22.5 % (42.0-52.0); Hemoglobin 7.4 gm/dL (13.5-18.0)
[2018-03-31] MEDS: PANTOPRAZOLE SODIUM 40 MG in NORMAL SALINE 100 ML IV SCH (07:23)
[2018-03-31 08:54] LABS: Hematocrit 25.8 % (42.0-52.0); Hemoglobin 8.5 gm/dL (13.5-18.0); Mean Cell Volume 100.8 fl (78-100); Mean Corpuscular Hemoglobin 33.2 pg (27-31); Mean Corpuscular Hgb Conc 32.9 g/dl (32-36); Neutrophil # 9.2 K/mm3 (1.3-6.0); Neutrophil % 70.7 % (42-75.0); Platelet Count 458 K/mm3 (150-450); Red Blood Count 2.56 M/mm3 (4.7-6.0); Red Cell Distribution Width 22.9 % (11.5-14.0)
[2018-03-31 09:08] LABS: Anion Gap 13.5 mmol/L (6.8-13.8); BUN/Creatinine Ratio 59.4 (9.0-21.6); Calcium * 7.8 mg/dL (7.9-10.9); Carbon Dioxide 25.5 mmol/L (24-32.6); Estimated Creat Clear 39.6
[2018-03-31] MEDS: CEPHALEXIN MONOHYDRATE 500 MG CAPSULE PO SCH ×2 (09:28→20:58)
[2018-03-31] MEDS: HYDROXYUREA 500 MG CAPSULE PO SCH (09:28)
[2018-03-31] MEDS: METOPROLOL TARTRATE 100 MG TABLET PO SCH ×2 (09:28→20:59)
[2018-03-31] MEDS: FUROSEMIDE 40 MG TABLET PO SCH (09:28)
[2018-03-31] MEDS: DIGOXIN 0.125 MG TABLET PO SCH (09:28)
[2018-03-31] MEDS: ACETAMINOPHEN 325 MG TABLET PO SCH ×3 (09:29→17:03)
[2018-03-31] MEDS: amLODIPine BESYLATE 10 MG TABLET PO SCH (09:29)
[2018-03-31] MEDS: FINASTERIDE 5 MG TABLET PO SCH (09:29)
[2018-03-31] MEDS: LISINOPRIL 40 MG TABLET PO SCH (09:29)
--- NOTE | 2018-03-31 09:49 | PN ---
Subjective - Date and Time Seen Date: 03/31/18 Time: 09:40 Subjective Narrative: Patient underwent upper endoscopy yesterday for GI bleed, which found a clot in his GE junction. He has not had further vomiting. Started a clear liquid diet yesterday evening. He continues to have foot pain, which he reports has been there for years with minimal relief. Has been having black tarry stools. His mentation changes have resolved. Denies shortness of breath, chest pain, abdominal pain. Objective - Review of Systems Generalized/Overall Review: Denies: Fever Respiratory: Denies: Shortness of Breath Cardiac: Reports: Edema. Denies: Chest Pain Abdominal: Reports: Melena. Denies: Vomiting - Vitals Vitals: Last Vital Signs Temp 36.6 C 03/31/18 07:20 Pulse 69 03/31/18 09:29 Resp 20 03/31/18 07:20 BP 143/50 03/31/18 09:29 Pulse Ox 95 03/31/18 07:20 - Abnormal Lab Findings Abnormal Lab Findings: Abnormal Lab Results 03/29/18 03/30/18 03/30/18 Range/Units 12:00 14:10 18:56 WBC (4.0-10.5) K/mm3 RBC (4.7-6.0) M/mm3 Hgb 6.7 L* 7.8 L* (13.5-18.0) gm/dL Hct 20.1 L* 24.5 L (42.0-52.0) % MCV (78-100) fl MCH (27-31) pg RDW (11.5-14.0) % Plt Count (150-450) K/mm3 Immature Gran % (Auto) (0.001-0.429) % Immature Gran # (Auto) (0.000-0.0310) K/mm3 Lymphocytes % (20-51) % Monocytes % (0.0-9) % Neutrophils # (1.3-6.0) K/mm3 Lymphocytes # (1.5-3.5) k/mm3 Monocytes # (0.0-1.0) k/mm3 Sodium (132-142) mmol/L Plasma Sodium (130-142) mmol/L Potassium (3.4-4.6) mmol/L Chloride (97-106) mmol/L BUN (6-23) mg/dL Creatinine (0.4-1.4) mg/dL Est GFR (Non-Af Amer) (60-130) mL/min BUN/Creatinine Ratio (9.0-21.6) Random Glucose (70-110) mg/dL Calcium (7.9-10.9) mg/dL Crossmatch See Detail 03/31/18 03/31/18 03/31/18 Range/Units 02:35 08:30 08:30 WBC 13.0 H D (4.0-10.5) K/mm3 RBC 2.56 L (4.7-6.0) M/mm3 Hgb 7.4 L* 8.5 L (13.5-18.0) gm/dL Hct 22.5 L* 25.8 L (42.0-52.0) % MCV 100.8 H (78-100) fl MCH 33.2 H (27-31) pg RDW 22.9 H (11.5-14.0) % Plt Count 458 H (150-450) K/mm3 Immature Gran % (Auto) 6.70 H (0.001-0.429) % Immature Gran # (Auto) 0.87 H (0.000-0.0310) K/mm3 Lymphocytes % 11.2 L (20-51) % Monocytes % 10.1 H (0.0-9) % Neutrophils # 9.2 H (1.3-6.0) K/mm3 Lymphocytes # 1.46 L (1.5-3.5) k/mm3 Monocytes # 1.3 H (0.0-1.0) k/mm3 Sodium 152 H (132-142) mmol/L Plasma Sodium 152 H (130-142) mmol/L Potassium 3.0 L (3.4-4.6) mmol/L Chloride 116 H (97-106) mmol/L BUN 95 H (6-23) mg/dL Creatinine 1.60 H (0.4-1.4) mg/dL Est GFR (Non-Af Amer) 44 L D (60-130) mL/min BUN/Creatinine Ratio 59.4 H (9.0-21.6) Random Glucose 112 H (70-110) mg/dL Calcium 7.8 L (7.9-10.9) mg/dL Crossmatch - Exam Constitutional: Present: Alert, No distress Respiratory: Present: normal breath sounds, no respiratory distress Cardiovascular/Chest: Present: regular rate, rhythm, systolic murmur Abdomen: Present: soft, nontender Extremity: Present: lower extremity edema - 1+ bilaterally. SCDs in place. Assessment/Plan - Problems/Diagnosis (1) GI bleed Problem: Acute Qualifiers: GI bleed type/associated pathology: gastrointestinal hemorrhage with hematemesis Qualified Code(s): K92.0 - Hematemesis Narrative: He is status post 5 units of PRBCs. His most recent hemoglobin level was 8.4 this morning, up from 7.4 overnight. We will recheck this afternoon. Has not had further coffee-ground emesis since yesterday morning. Underwent EGD yesterday afternoon, and a clot was found at his GE junction. Continue clear it, however reluctant to give all home medications until his hemoglobin has been above 8.0 for 2 consecutive checks. He had been taking Eliquis prior to admission, and we will have to discuss discontinuing it indefinitely with his family. Has a history of A fib. (2) Anemia Problem: Acute Qualifiers: Anemia type: other cause Narrative: Currently 8.5, up from 6.4 6 hours and 1 unit of PRBCs prior. Secondary to GI bleed. He has received 5 units PRBCs this admission. (3) Acute alteration in mental status Problem: Resolved (4) Hypernatremia Problem: Acute (5) Atrial fibrillation Problem: Chronic Qualifiers: Atrial fibrillation type: unspecified Qualified Code(s): I48.91 - Unspecified atrial fibrillation (6) Hypokalemia Problem: Acute Narrative: Potassium 3.0. Will administer IV potassium. Will avoid a large p.o. potassium pills given the location of the lesion in his GE junction likely responsible for his GI bleed. (7) Leukocytosis Problem: Acute Qualifiers: Leukocytosis type: unspecified Qualified Code(s): D72.829 - Elevated white blood cell count, unspecified Narrative: Improving. Likely stress reaction to severe anemia. (8) Acute renal insufficiency Problem: Acute Narrative: Improving. Creatinine 1.6, down from 1.99 yesterday. If he is able to tolerate adequate p.o. intake, we will not need further IV hydration. (9) History of esophageal stricture Problem: Chronic Narrative: Has had multiple episodes of food bolus requiring endoscopy for resolution, most recently December 2017. We will continue clear liquid diet for now, however would recommend mechanical soft diet when able.
[2018-03-31] MEDS ORDERED: POTASSIUM CHLORIDE IN WATER 100 ML IV ONE (10:00)
[2018-03-31 15:21] LABS: Hematocrit 26.6 % (42.0-52.0); Hemoglobin 8.6 gm/dL (13.5-18.0)
[2018-03-31] MEDS: TAMSULOSIN HCL 0.4 MG CAP.SR.24H PO SCH (20:59)
[2018-04-01 05:14] LABS: Hematocrit 28.4 % (42.0-52.0); Hemoglobin 8.9 gm/dL (13.5-18.0); Mean Cell Volume 107.6 fl (78-100); Mean Corpuscular Hemoglobin 33.7 pg (27-31); Mean Corpuscular Hgb Conc 31.3 g/dl (32-36); Mean Platelet Volume 10.1 fl (8-11.3); Platelet Count 459 K/mm3 (150-450); Red Blood Count 2.64 M/mm3 (4.7-6.0); Red Cell Distribution Width 23.5 % (11.5-14.0); White Blood Count 11.5 K/mm3 (4.0-10.5)
[2018-04-01 05:20] LABS: Total Cells Counted 100
[2018-04-01 06:21] LABS: Band 1 % (0-2.0); Eosinophil 2 % (0-3); Immature Granulocyte 3 (0-1); Lymphocyte 13 % (20-51); Monocyte 5 % (0-9); Neutrophil 76 % (42-75); Neutrophil # 8.7 K/mm3 (1.3-6.0)
[2018-04-01 06:23] LABS: Platelet Estimate Increased (NORMAL)
[2018-04-01 06:24] LABS: Anisocytosis 1+; Dohle Bodies Trace; Hypochromia 1+; Polychromasia 1+
[2018-04-01] MEDS: PANTOPRAZOLE SODIUM 40 MG in NORMAL SALINE 100 ML IV SCH (07:54)
[2018-04-01] MEDS: METOPROLOL TARTRATE 100 MG TABLET PO SCH (08:01)
[2018-04-01] MEDS: FUROSEMIDE 40 MG TABLET PO SCH (08:01)
[2018-04-01] MEDS: CEPHALEXIN MONOHYDRATE 500 MG CAPSULE PO SCH (08:01)
[2018-04-01] MEDS: DIGOXIN 0.125 MG TABLET PO SCH (08:01)
[2018-04-01] MEDS: HYDROXYUREA 500 MG CAPSULE PO SCH (08:01)
[2018-04-01] MEDS: amLODIPine BESYLATE 10 MG TABLET PO SCH (08:02)
[2018-04-01] MEDS: FINASTERIDE 5 MG TABLET PO SCH (08:02)
[2018-04-01] MEDS: ACETAMINOPHEN 325 MG TABLET PO SCH (08:02)
[2018-04-01] MEDS: PROBENECID 500 MG TABLET PO SCH (08:02)
[2018-04-01] MEDS: LISINOPRIL 40 MG TABLET PO SCH (08:03)
[2018-04-01 08:24] LABS: Anion Gap 14.5 mmol/L (6.8-13.8); BUN/Creatinine Ratio 38.3 (9.0-21.6); Calcium * 8.1 mg/dL (7.9-10.9); Carbon Dioxide 25.6 mmol/L (24-32.6); Estimated Creat Clear 44.9; Potassium 3.1 mmol/L (3.4-4.6)
--- NOTE | 2018-04-01 09:01 | DS ---
(1) GI bleed Problem: Resolved Qualifiers: GI bleed type/associated pathology: gastrointestinal hemorrhage with hemat emesis Qualified Code(s): K92.0 - Hematemesis (2) Anemia Problem: Chronic Qualifiers: Anemia type: other cause (3) Acute alteration in mental status Problem: Resolved (4) Hypernatremia Problem: Acute (5) Atrial fibrillation Problem: Chronic Qualifiers: Atrial fibrillation type: unspecified Qualified Code(s): I48.91 - Unspecified atrial fibrillation (6) Hypokalemia Problem: Acute (7) Leukocytosis Problem: Resolved Qualifiers: Leukocytosis type: unspecified Qualified Code(s): D72.829 - Elevated white blood cell count, unspecified (8) Acute renal insufficiency Problem: Resolved (9) History of esophageal stricture Problem: Chronic Description of Stay: Is a resident of [facility] was brought by his sons to the emergency department after they noticed some alteration in mentation. In the ER, he was found to have hemoglobin of 6.8. His eliquis, prescribed for afib, was stopped. He had one episode of coffee-ground emesis, and multiple black tarry stools. He was started on IV Protonix, and surgery was consulted for his GI bleed. A clot was found at his GE junction, and a biopsy was obtained next to the clot, which has not yet resulted. He received a total of 6 units PRBCs. His hemoglobin remained stable for the final 24 hours of discharge, with no further emesis. His mentation improved to baseline. He was easily able to manage clear liquid diet. Will continue protonix after DC. Risks vs benefits of anticoagulation were discussed with his son, who agrees with stopping anticoagulation, knowing it will increase his risk of stroke. He had an RAFFI, with maximum creatinine of 1.99, which improved by the day of discharge with a creatinine of 1.4. He has a history of an esophageal stricture, and mechanical soft diet is recommended in the future. If possible, would also recommend crushing his tablets. He did have some hypokalemia, with potassium down to 3.0. He was given 1 IV dose of potassium in the ER, and will continue 3 times daily 20 mg of potassium and recheck next week. He also did have some hypernatremia, and would recommend water intake after discharge. His albumin is low, at 2.2 and 2.4. Would recommend adding Boost shakes to meals. He finished his course of keflex for left neck cellulitis, and will not continue after DC. Procedures Performed: see notes below - upper endoscopy Results and Findings: Pending Mircobiology Results 03/29/18 11:45 Blood Blood Culture - Preliminary NO GROWTH AFTER 48 HOURS 03/29/18 11:30 Blood Blood Culture - Preliminary NO GROWTH AFTER 48 HOURS Lab Pending Results 03/29/18 10:16: Lactic Acid, Venous 2.2 H* 03/29/18 11:30: WBC 20.0 H, RBC 1.53 L, Hgb 6.2 L* D, Hct 19.4 L* D, MCV 126.8 H, MCH 40.5 H, MCHC 32.0, RDW 14.6 H, Plt Count 625 H, MPV 10.2, Neutrophils % (Manual) 85 H, Band Neuts % (Manual) 2, Lymphocytes % (Manual) 5 L, Monocytes % (Manual) 1, Immature Granulocytes 7 H, Neutrophils # (Manual) 17.0 H, Lymphocytes # (Manual) 1.0 L, Monocytes # (Manual) 0.2, Platelet Estimate Increased H, Polychromasia 1+, Hypochromasia 2+, Macrocytosis 1+, Target Cells 1+ 03/29/18 11:30: Sodium 149 H, Plasma Sodium 150 H, Potassium 4.0, Chloride 110 H, Carbon Dioxide 24.9, Anion Gap 18.1 H, BUN 103 H D, Creatinine 1.80 H, Est GFR (Non-Af Amer) 38 L D, BUN/Creatinine Ratio 57.2 H, Random Glucose 138 H, Calcium 8.6, Calcium Adj for Albumin 9.6, Magnesium 2.1, Total Bilirubin 0.2, AST 14, ALT 11 L, Alkaline Phosphatase 43 L, Total Protein 5.0 L, Albumin 2.4 L 03/29/18 11:52: B-Natriuretic Peptide 1168 H 03/29/18 12:00: Blood Type A Positive, Antibody Screen Negative, Crossmatch See Detail 03/29/18 12:36: Stool Occult Blood Positive H 03/29/18 13:00: Lactic Acid, Venous 2.0 03/29/18 13:13: Urine Color Yellow, Urine Appearance Clear, Urine pH 5.5, Ur Specific [place] 1.025, Urine Protein 100 H, Urine Glucose (UA) Negative, Urine Ketones Negative, Urine Blood Negative, Urine Nitrate Negative, Urine Bilirubin Negative, Prot Sulfosalicylic Acd 1+, Urine Urobilinogen Normal, Ur Leukocyte Esterase Negative, Urine RBC None seen, Urine WBC 0-5, Ur Epithelial Cells 0-5, Urine Bacteria Trace, Urine Culture Comments Culture to follow 03/29/18 21:00: Hgb 6.2 L*, Hct 18.8 L* 03/30/18 06:00: WBC 20.0 H, RBC 2.18 L, Hgb 8.0 L, Hct 24.1 L, MCV 104.6 H, MCH 34.9 H, MCHC 33.3, RDW 25.7 H, Plt Count 645 H, MPV 9.8, Neutrophils % (Manual) 76 H, Band Neuts % (Manual) 4 H, Lymphocytes % (Manual) 11 L, Monocytes % (Manual) 2, Immature Granulocytes 7 H, Neutrophils # (Manual) 15.2 H, Lymphocytes # (Manual) 2.2, Monocytes # (Manual) 0.4, Platelet Estimate Normal, Polychromasia 1+, Hypochromasia 1+, Macrocytosis 1+ 03/30/18 06:00: Sodium 150 H, Plasma Sodium 151 H, Potassium 3.2 L, Chloride 110 H, Carbon Dioxide 28.5, Anion Gap 14.7 H, BUN 126 H D, Creatinine 1.99 H, Est GFR (Non-Af Amer) 34 L, BUN/Creatinine Ratio 63.3 H, Random Glucose 142 H, C alcium 8.4, Calcium Adj for Albumin 9.5, Total Bilirubin 0.3, AST 17, ALT 12 L, Alkaline Phosphatase 43 L, Total Protein 4.9 L, Albumin 2.2 L 03/30/18 07:22: Gastric Occult Blood Positive H 03/30/18 14:10: Hgb 6.7 L*, Hct 20.1 L* 03/30/18 16:15: Pathology Specimen Spec to path 03/30/18 18:56: Hgb 7.8 L*, Hct 24.5 L 03/31/18 02:35: Hgb 7.4 L*, Hct 22.5 L* 03/31/18 08:30: WBC 13.0 H D, RBC 2.56 L, Hgb 8.5 L, Hct 25.8 L, MCV 100.8 H, MCH 33.2 H, MCHC 32.9, RDW 22.9 H, Plt Count 458 H, MPV 10.0, Immature Gran % (Auto) 6.70 H, Immature Gran # (Auto) 0.87 H, Neutrophils % 70.7, Lymphocytes % 11.2 L, Monocytes % 10.1 H, Eosinophils % 0.9, Basophils % 0.4, Nucleated RBC % 0.0, Neutrophils # 9.2 H, Lymphocytes # 1.46 L, Monocytes # 1.3 H, Eosinophils # 0.1, Absolute Basophils 0.1 03/31/18 08:30: Sodium 152 H, Plasma Sodium 152 H, Potassium 3.0 L, Chloride 116 H, Carbon Dioxide 25.5, Anion Gap 13.5, BUN 95 H, Creatinine 1.60 H, Est GFR (Non-Af Amer) 44 L D, BUN/Creatinine Ratio 59.4 H, Random Glucose 112 H, Calcium 7.8 L 03/31/18 15:15: Hgb 8.6 L, Hct 26.6 L 04/01/18 05:05: WBC 11.5 H, RBC 2.64 L, Hgb 8.9 L, Hct 28.4 L, MCV 107.6 H, MCH 33.7 H, MCHC 31.3 L, RDW 23.5 H, Plt Count 459 H, MPV 10.1, Neutrophils % (Manual) 76 H, Band Neuts % (Manual) 1, Lymphocytes % (Manual) 13 L, Monocytes % (Manual) 5, Eosinophils % (Manual) 2, Immature Granulocytes 3 H, Neutrophils # (Manual) 8.7 H, Lymphocytes # (Manual) 1.5, Monocytes # (Manual) 0.6, Eosinophils # (Manual) 0.2, Dohle Bodies Trace, Platelet Estimate Increased H, Polychromasia 1+, Hypochromasia 1+, Anisocytosis 1+ 04/01/18 08:05: Sodium 152 H, Plasma Sodium 153 H, Potassium 3.1 L, Chloride 115 H, Carbon Dioxide 25.6, Anion Gap 14.5 H, BUN 54 H, Creatinine 1.41 H, Est GFR (Non-Af Amer) 51 L, BUN/Creatinine Ratio 38.3 H, Random Glucose 145 H, Calcium 8.1 Discharge Location: [facility] Disposition: SNF Condition: Fair Level of Care: SNF Discharge Activity: Activity as tolerated Discharge Diet: [facility] soft Skilled Nursing Therapy: Physicial Therapy, Occupation Therapy Referrals: Saida Delarosa DO [Primary Care Provider] - Prescriptions (Any new or edited meds): Pantoprazole Sodium [Protonix] 40 mg PO DAILY #60 tablet.dr Potassium Chloride [Klor-Con M20] 20 meq PO TID #90 tab.er.prt Complete Home Medications List: Complete Home Medication List: Finasteride [Proscar] 5 mg PO DAILY 06/09/16 Hydroxyurea [Hydrea] 500 mg PO DAILY 06/09/16 Lisinopril [Zestril] 40 mg PO DAILY 06/09/16 Multivitamin [Multivitamins] 1 ea PO DAILY 06/09/16 Potassium Chloride 20 meq PO DAILY 06/09/16 Tamsulosin HCl 0.4 mg PO HS 06/09/16 amLODIPine BESYLATE [Norvasc] 10 mg PO DAILY 08/02/17 acetaminophen 325 mg tablet 650 mg PO TID 09/27/17 aspirin 81 mg tablet,delayed release 81 mg PO DAILY 09/27/17 calcium polycarbophil 625 mg tablet 1,250 mg PO BID 09/27/17 digoxin 125 mcg tablet 0.125 mg PO .COMPLEX 09/27/17 docusate sodium 100 mg tablet 200 mg PO BID PRN tab 09/27/17 ipratropium-albuterol 0.5 mg-3 mg(2.5 mg base)/3 mL nebulization soln 3 ml IH QID PRN 09/27/17 lidocaine 4 % topical cream 1 applic TP TID 09/27/17 menthol 4 % topical gel 1 % TP Q8H PRN ml 09/27/17 probenecid 500 mg tablet 250 mg PO BID tab 09/27/17 Furosemide [Lasix] 40 mg PO DAILY #30 tab 11/12/17 Metoprolol Tartrate [Lopressor] 100 mg PO BID tab 11/12/17 ranitidine 150 mg tablet 150 mg PO DAILY #30 tab 02/07/18 gabapentin 100 mg capsule 100 mg PO TID 03/28/18 neomycin 3.5 mg-bacitracn Zn 400 unit-polymyxin 5,000 unit/g top spray 1 g TP TID g 03/28/18 Pantoprazole Sodium [Protonix] 40 mg PO DAILY #60 tablet.dr 04/01/18 Potassium Chloride [Klor-Con M20] 20 meq PO TID #90 tab.er.prt 04/01/18 Amb Orders for Discharge: CBC Time Frame: 3 Days, Location: Laboratory Comprehensive Metabolic Panel Time Frame: 3 Days, Location: Laboratory
[2018-04-01 09:37] VITALS: BP 132/54
== END 2018-04-01 09:36 | DRG 378 ==
LOC: ER 09:53 → MS 12:58
PROVIDERS: ADMIT Family Medicine; ATTEND Family Medicine
DX: D64.9 Anemia, unspecified; H50.10 Unspecified exotropia; M79.672 Pain in left foot; H60.12 Cellulitis of left external ear; D72.829 Elevated white blood cell count, unspecified; Z88.5 Allergy status to narcotic agent; M79.671 Pain in right foot; E87.6 Hypokalemia; N17.9 Acute kidney failure, unspecified; K29.60 Other gastritis without bleeding; K44.9 Diaphragmatic hernia without obstruction or gangrene; K31.9 Disease of stomach and duodenum, unspecified; E87.0 Hyperosmolality and hypernatremia; Z66 Do not resuscitate; R01.1 Cardiac murmur, unspecified; I48.2 Chronic atrial fibrillation; Z82.49 Family history of ischemic heart disease and other diseases of the circulatory system; Z79.01 Long term (current) use of anticoagulants; E78.5 Hyperlipidemia, unspecified; Z87.891 Personal history of nicotine dependence; K21.9 Gastro-esophageal reflux disease without esophagitis; K92.0 Hematemesis; H91.90 Unspecified hearing loss, unspecified ear; K22.10 Ulcer of esophagus without bleeding; L03.211 Cellulitis of face; I12.9 Hypertensive chronic kidney disease with stage 1 through stage 4 chronic kidney disease, or unspecified chronic kidney disease; K22.2 Esophageal obstruction; K22.8 Other specified diseases of esophagus; N18.3 Chronic kidney disease, stage 3 (moderate); Z86.73 Personal history of transient ischemic attack (TIA), and cerebral infarction without residual deficits; Z79.82 Long term (current) use of aspirin; R41.82 Altered mental status, unspecified
CPT/HCPCS: 36415; 70450; 71010; 71045; 74019; 74020; 80048; 80053; 81001; 82272; 83519; 83605; 83735; 83880; 85007; 85014; 85018; 85025; 86850; 86900; 87040; 87081; 87086; 88305; 88312; 88313; 93005; 99285; P9016

== ENCOUNTER 2018-08-17 17:08 | Inpatient (IN) ==
[2018-08-17 17:29] LABS: Hematocrit 33.1 % (42.0-52.0); Hemoglobin 10.8 gm/dL (13.5-18.0); Mean Cell Volume 121.7 fl (78-100); Mean Corpuscular Hemoglobin 39.7 pg (27-31); Mean Corpuscular Hgb Conc 32.6 g/dl (32-36); Mean Platelet Volume 9.3 fl (8-11.3); Platelet Count 501 K/mm3 (150-450); Red Blood Count 2.72 M/mm3 (4.7-6.0); Red Cell Distribution Width 15.8 % (11.5-14.0); White Blood Count 23.7 K/mm3 (4.0-10.5)
[2018-08-17] MEDS ORDERED: LEVOFLOXACIN IN DEXTROSE 5 % 500 MG/100 ML BAG IV SCH (17:30)
[2018-08-17 17:35] LABS: Total Cells Counted 100
[2018-08-17 17:45] LABS: Atypical (Reactive) Lymph 2 % (0-2); Band 1 % (0-2.0); Lymphocyte 14 % (20-51); Monocyte 7 % (0-9); Neutrophil 76 % (42-75)
[2018-08-17 17:46] LABS: Platelet Estimate Increased (NORMAL)
[2018-08-17 17:47] LABS: Anisocytosis Trace; Hypochromia 1+; Macrocytosis Trace
[2018-08-17] MEDS: NORMAL SALINE 1,000 ML IV PRN (17:49)
[2018-08-17 17:50] LABS: Albumin * 2.8 gm/dl (3.4-5.0); Anion Gap 12.7 mmol/L (6.8-13.8); BUN/Creatinine Ratio 13.9 (9.0-21.6); Bilirubin, Total 0.6 mg/dL (0.0-1.1); Ca. Corrected For Albumin 9.2 mg/dL (8.4-10.2); Calcium * 8.6 mg/dL (7.9-10.9); Carbon Dioxide 30.7 mmol/L (24-32.6); Digoxin 0.6 ng/mL (0.5-2.0); Potassium 4.4 mmol/L (3.4-4.6); Total Protein 6.6 gm/dL (6.2-8.2)
[2018-08-17 17:52] LABS: Troponin I 3.09 ng/mL (0.00-0.10)
[2018-08-17] MEDS ORDERED: ASPIRIN 300 MG SUPP.RECT RC ONE (18:06)
[2018-08-17 18:13] LABS: Urine Bilirubin Negative (NEGATIVE); Urine Blood 50 /ul (NEGATIVE); Urine Ketone Negative (NEGATIVE); Urine Nitrite Negative (NEGATIVE); Urine Protein >=300 mg/dL (NEGATIVE); Urine Urobilinogen Normal (NORMAL)
[2018-08-17 18:20] LABS: Urine Appearance Clear (CLEAR); Urine Color Yellow
[2018-08-17 18:21] LABS: Urine Bacteria None Seen; Urine WBC None Seen /hpf (0-5)
--- NOTE | 2018-08-17 18:35 | ERNOTE ---
Medical Problem HPI - Narrative Date of Service: 08/17/18 - General Chief Complaint: Fever Time Seen by Provider: 08/17/18 17:10 Source: patient, family Exam Limitations: clinical condition - Immun/Allergies/Home Medications Immunizations: IMMUNIZATION HX Immunizations Up to Date Yes History of Influenza Vaccine Yes Hx Pneumococcal Vaccination Yes Allergies/Adverse Reactions: Allergies codeine Allergy (Severe, Verified 08/17/18 17:15) Swelling (Other) Home Medications: HOME MEDICATIONS Finasteride [Proscar] 5 mg PO DAILY 06/09/16 [Last Taken Unknown] Hydroxyurea [Hydrea] 500 mg PO DAILY 06/09/16 [Last Taken Unknown] Lisinopril [Zestril] 40 mg PO DAILY 06/09/16 [Last Taken Unknown] Multivitamin [Multivitamins] 1 ea PO DAILY 06/09/16 [Last Taken Unknown] Tamsulosin HCl 0.4 mg PO HS 06/09/16 [Last Taken Unknown] amLODIPine BESYLATE [Norvasc] 10 mg PO DAILY 08/02/17 [Last Taken Unknown] aspirin 81 mg tablet,delayed release 81 mg PO DAILY 09/27/17 [Last Taken Unknown] calcium polycarbophil 625 mg tablet 1,250 mg PO BID 09/27/17 [Last Taken Unknown] digoxin 125 mcg tablet 0.125 mg PO .COMPLEX 09/27/17 [Last Taken Unknown] docusate sodium 100 mg tablet 200 mg PO BID PRN tab 09/27/17 [Last Taken Unknown] ipratropium-albuterol 0.5 mg-3 mg(2.5 mg base)/3 mL nebulization soln 3 ml IH QID PRN 09/27/17 [Last Taken Unknown] lidocaine 4 % topical cream 1 applic TP TID 09/27/17 [Last Taken Unknown] menthol 4 % topical gel 1 % TP Q8H PRN ml 09/27/17 [Last Taken Unknown] probenecid 500 mg tablet 250 mg PO BID tab 09/27/17 [Last Taken Unknown] Furosemide [Lasix] 40 mg PO DAILY #30 tab 11/12/17 [Last Taken Unknown] ranitidine 150 mg tablet 150 mg PO DAILY #30 tab 02/07/18 [Last Taken Unknown] Pantoprazole Sodium [Protonix] 40 mg PO DAILY #60 jose. 04/01/18 [Last Taken Unknown] Potassium Chloride [Klor-Con M20] 20 meq PO TID #90 tab.er.prt 04/01/18 [Last Taken Unknown] hydrocortisone 1 % topical cream 1 applic TP BID #30 g 04/20/18 [Last Taken Unknown] loratadine 10 mg tablet 10 mg PO DAILY #30 tab 04/20/18 [Last Taken Unknown] furosemide 80 mg tablet 80 mg PO DAILY 05/23/18 [Last Taken Unknown] gabapentin 300 mg capsule 300 mg PO TID #90 cap 07/19/18 [Last Taken Unknown] acetaminophen 325 mg tablet 325 mg PO TID #14 tab 08/11/18 [Last Taken Unknown] hydrocodone 5 mg-acetaminophen 325 mg tablet 1 tab PO Q6H #14 tab 08/11/18 [Last Taken Unknown] - History of Present History Narrative: Patient arrives via EMS. Ambulance called for patient having trouble breathing. He had sats in the mid 80s and oxygen was placed with improved sats. Here has a high fever. He answers some questions, family answers others, his condition does hamper history. Denies pain. Coughing. Timing: constant, getting worse Severity: severe Modifying Factors - (Improves): Present: other - oxygen Modifying Factors - (Worsens): Present: other - nothing Review of Systems - Narrative Narrative: unobtainable in entirety d/t patient condition - Review of Systems Constitutional: Present: fever Respiratory: Present: shortness of breath, cough Cardiology: Absent: chest pain Gastrointestinal/Abdominal: Absent: abdominal pain Medical History (Updated 08/10/18 @ 14:56 by Toña Gauthier LPN) CKD (chronic kidney disease) stage 3, GFR 30-59 ml/min Onset Date: Unknown Dysphagia Onset Date: 03/25/10 GERD (gastroesophageal reflux disease) Onset Date: Unknown Hyperlipidemia Onset Date: Unknown Hypertension Onset Date: Unknown Foreign body in digestive tract Onset Date: 03/25/10 Hypokalemia Onset Date: Unknown TIA (transient ischemic attack) Onset Date: 1998 Surgical History: Surgical History (Updated 04/01/18 @ 09:01 by Saida Delarosa DO) H/O colonoscopy Onset Date: 2008 H/O eye surgery Onset Date: 1948 H/O hernia repair Onset Date: Unknown 1 single and 1 double repair. History of bladder surgery Onset Date: Unknown History of esophagogastroduodenoscopy (EGD) Onset Date: 06/09/16 Hx of tonsillectomy Onset Date: Unknown Family History: Family History (Updated 09/27/17 @ 16:07 by Britney Dahl RN) Father Cancer Mother Heart disease Diabetes Social History: Preferred Language Vincentian Smoking Status Never smoker Abuse History No History of abuse Psych History No pertinent hx Alcohol Use none Drug Use none (Last Updated 08/10/18 @ 16:42 by Shahana Mclaughlin DPM) No Social History Section defined Physical Exam - Physical Exam General Appearance: Present: other - on oxygen, cough noted, mild tachypnea but appears comfortable at this time Head Exam: Present: normal inspection, no evidence of injury Eye Exam: Normal inspection: bilateral Ears, Nose, Throat: Present: dry mucous membranes Neck: Present: normal inspection Respiratory: Present: chest nontender, rhonchi, other - bilateral low lobe. Absent: stridor Cardiovascular/Chest: Present: normal peripheral pulses, tachycardia Gastrointestinal/Abdominal: Present: normal bowel sounds, nontender, soft Back Exam: Absent: CVA tenderness (R), CVA tenderness (L) Extremity Exam: Present: pedal edema Neurological Exam: Present: alert, other - generalized weakness noted. No acute unilateral focal motor deficits noted acutely Skin Exam: Present: normal color, warm/dry Progress - Results and Orders Patient's Lab Results:: I have reviewed the patient's lab results. - Vital Signs Patient's Vital Signs:: I have reviewed the patient's vital signs. Vital Signs: Vital Signs 08/17/18 17:09 08/17/18 17:52 Temperature 39.5 C H 40.4 C H Pulse Rate 103 H 103 H Respiratory Rate 26 H 31 H Blood Pressure 169/88 H O2 Sat by Pulse Oximetry 94 93 - EKG EKG #1 EKG read: Interp. by me EKG Comments: Poor tracing d/t patient condition, likely sinus tachycardia. Non-specific without evidence of STEMI - X-Ray X-Ray #1 X-Ray: chest Interpretation: Interp. by me X-ray Comments: No real time radiology reads. Multi focal pneumonia noted - CT/Ultrasound CT/Ultrasound Narrative: IV ABx started immediately. patient is DNR and I spoke with family. They are OK with IV antibiotics/fluids/etc. Would also be OK with BiPap if necessary for comfort only, no intubation and primary goal at this time per family is to keep the patient comfortable. D/W Dr Morrell who will admit. - Progress/Reassessment Chief Complaint: Fever Departure Clinical Impression: Pneumonia, Fever, Hypoxia, SIRS (systemic inflammatory response syndrome), Elevated troponin - Departure Disposition: Still a patient Condition: Poor Referrals: Saida Delarosa DO [Primary Care Provider] -
[2018-08-17] MEDS ORDERED: ACETAMINOPHEN 325 MG TABLET PO PRN (23:30)
[2018-08-17] MEDS ORDERED: ALBUTEROL SULFATE/IPRATROPIUM 3 ML NEBU IH PRN (23:31)
--- NOTE | 2018-08-17 23:57 | HP ---
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 Patient was a poor historian so a complete history was unable to be obtained. However he was able to tell me that he has been having worsening cough and high-grade fever over the past several days, patient also he reports having trouble breathing. Upon arriving to our ER, chest x-ray was ordered which reported pulmonary congestion which most likely indicates a decompensated CHF. Bronchial pneumonia could not be ruled out. Medical History (Updated 08/17/18 @ 23:57 by Susan Morrell MD) A-fib Benign prostatic disease Dysphagia Essential thrombocythemia Gout TIA (transient ischemic attack) UTI (urinary tract infection) Urinary retention CKD (chronic kidney disease) stage 3, GFR 30-59 ml/min Onset Date: Unknown Dysphagia Onset Date: 03/25/10 GERD (gastroesophageal reflux disease) Onset Date: Unknown Hyperlipidemia Onset Date: Unknown Hypertension Onset Date: Unknown Foreign body in digestive tract Onset Date: 03/25/10 Hypokalemia Onset Date: Unknown TIA (transient ischemic attack) Onset Date: 1998 Surgical History: Surgical History (Updated 04/01/18 @ 09:01 by Saida Delarosa DO) H/O colonoscopy Onset Date: 2008 H/O eye surgery Onset Date: 1948 H/O hernia repair Onset Date: Unknown 1 single and 1 double repair. History of bladder surgery Onset Date: Unknown History of esophagogastroduodenoscopy (EGD) Onset Date: 06/09/16 Hx of tonsillectomy Onset Date: Unknown Family History: Family History (Updated 09/27/17 @ 16:07 by Britney Dahl RN) Father Cancer Mother Heart disease Diabetes Social History: Patient Lives/Resources [facility] Utilized Preferred Language Mongolian Do you have any moravian or No cultural preference? Smoking Status Former smoker Have you smoked in the past 12 No months Abuse History No History of abuse Psych History No pertinent hx Alcohol Use none Drug Use none (Last Updated 08/10/18 @ 16:42 by Shahana Mclaughlin DPM) No Social History Section defined Peds Patient Hx - Developmental: No Pertinent Hx Peds Patient Hx - Medical: No Pertinent Hx Peds Patient Hx - Cardiac/Respiratory: No Pertinent Hx Peds Patient Hx - Surgical: No Surgical History Patient History - Cancer: No Hx of Cancer Review Of Systems (GEN) - Review of Systems Generalized/Overall Review: Present: Weakness, Chills, Fever, Fatigue EENTM: Present: No Symptoms Reported Respiratory: Present: Cough, Shortness of Breath Cardiac: Present: Edema Abdominal: Present: No Symptoms Reported Genitourinary: Present: No Symptoms Reported Musculoskeletal: Present: No Symptoms Reported Neurological: Present: No Symptoms Reported Skin: Present: No Symptoms Reported Endocrine: Present: No Symptoms Reported Immunizations: IMMUNIZATION HX Immunizations Up to Date Yes History of Influenza Vaccine Yes Hx Pneumococcal Vaccination Yes Allergies/Adverse Reactions: Allergies Allergy/AdvReac Type Severity Reaction Status Date / Time codeine Allergy Severe Swelling Verified 08/17/18 17:15 (Other) Home Medications: HOME MEDICATIONS Finasteride [Proscar] 5 mg PO DAILY 06/09/16 [Last Taken Unknown] Hydroxyurea [Hydrea] 500 mg PO DAILY 06/09/16 [Last Taken Unknown] Lisinopril [Zestril] 40 mg PO DAILY 06/09/16 [Last Taken Unknown] Multivitamin [Multivitamins] 1 ea PO DAILY 06/09/16 [Last Taken Unknown] Tamsulosin HCl 0.4 mg PO HS 06/09/16 [Last Taken Unknown] amLODIPine BESYLATE [Norvasc] 10 mg PO DAILY 08/02/17 [Last Taken Unknown] aspirin 81 mg tablet,delayed release 81 mg PO DAILY 09/27/17 [Last Taken Unknown] calcium polycarbophil 625 mg tablet 1,250 mg PO BID 09/27/17 [Last Taken Unknown] digoxin 125 mcg tablet 0.125 mg PO MOTUWETHFR 09/27/17 [Last Taken Unknown] docusate sodium 100 mg tablet 200 mg PO BID PRN tab 09/27/17 [Last Taken Unknown] ipratropium-albuterol 0.5 mg-3 mg(2.5 mg base)/3 mL nebulization soln 3 ml IH QID PRN 09/27/17 [Last Taken Unknown] probenecid 500 mg tablet 250 mg PO BID tab 09/27/17 [Last Taken Unknown] ranitidine 150 mg tablet 150 mg PO DAILY #30 tab 02/07/18 [Last Taken Unknown] Pantoprazole Sodium [Protonix] 40 mg PO DAILY #60 tablet. 04/01/18 [Last Taken Unknown] Potassium Chloride [Klor-Con M20] 20 meq PO TID #90 tab.er.prt 04/01/18 [Last Taken Unknown] loratadine 10 mg tablet 10 mg PO DAILY #30 tab 04/20/18 [Last Taken Unknown] furosemide 80 mg tablet 80 mg PO DAILY 05/23/18 [Last Taken Unknown] gabapentin 300 mg capsule 300 mg PO TID #90 cap 07/19/18 [Last Taken Unknown] Furosemide [Lasix] 40 mg PO 1400 08/17/18 [Last Taken Unknown] HYDROcodone/ACETAMINOPHEN [[place] 5-325 Tablet] 1 tab PO BID 08/17/18 [Last Taken Unknown] Exam - Exam Vital Signs: Vital Signs - Last Taken Temp 37.2 C 08/17/18 20:45 Pulse 94 08/17/18 20:45 Resp 22 H 08/17/18 20:45 BP 157/64 H 08/17/18 20:45 Pulse Ox 92 L 08/17/18 20:45 Constitutional: Present: Alert, Cooperative, Well developed, Well nourished, No distress, Elderly, Looks Older than stated age ENT Exam: Present: normal ENT inspection, hearing grossly normal, pharynx normal Eye Exam: bilateral eye: normal inspection, PERRL, EOMI Neck: Present: non-tender, full range of motion, supple, normal inspection, trachea midline Back Exam: Present: normal inspection, no CVA tenderness, no vertebral tenderness Breasts: Present: Exam deferred, Nontender Respiratory: Present: no respiratory distress, no accessory muscle use, crackles - Bibasilar crackles, No rales, No wheezing Cardiovascular/Chest: Present: normal peripheral pulses, regular rate, rhythm, no chest tenderness, no murmur, JVD, edema Peripheral Pulses: carotid (R): 2+, carotid (L): 2+, femoral (R): 2+, femoral (L): 2+, dorsalis-pedis (R): 2+, dorsalis-pedis (L): 2+ Abdomen: Present: Normal bowel sounds, soft, nontender, nondistended, no rebound tenderness, no hepatospenomegaly, no masses, obese /Rectal: Present: Exam deferred Extremity: Present: normal range of motion, non-tender, normal inspection, lower extremity edema, pedal edema - Bilateral 3+ pedal edema Skin Exam: Present: normal color, warm/dry, no cyanosis Lymphatic: Present: no adenopathy 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: 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 nml as tested, normal cerebellar test Appearance: Present: appropriate appearance, appropriate insight, neat Eye contact: Present: decreased rate of speech, other - Partially incoherent speech Thoughts: Present: normal thought pattern, no apparent hallucination Diagnostic Studies: Abnormal Lab Results 08/17/18 08/17/18 08/17/18 Range/Units 17:20 17:20 17:20 WBC 23.7 H (4.0-10.5) K/mm3 RBC 2.72 L (4.7-6.0) M/mm3 Hgb 10.8 L (13.5-18.0) gm/dL Hct 33.1 L (42.0-52.0) % MCV 121.7 H (78-100) fl MCH 39.7 H (27-31) pg RDW 15.8 H (11.5-14.0) % Plt Count 501 H (150-450) K/mm3 Neutrophils % (Manual) 76 H (42-75) % Lymphocytes % (Manual) 14 L (20-51) % Neutrophils # (Manual) 18.0 H (1.3-6.0) K/mm3 Monocytes # (Manual) 1.7 H (0.0-1.0) k/mm3 Platelet Estimate Increased H (NORMAL) pO2 (83.0-108.0) mmHg Total CO2 (19.0-24.0) mmol/L ABG O2 Sat (Measured) (94.0-98.0) % Sodium 143 H (132-142) mmol/L Plasma Sodium 144 H (130-142) mmol/L BUN 25 H (6-23) mg/dL Creatinine 1.80 H (0.4-1.4) mg/dL Est GFR (Non-Af Amer) 38 L (60-130) mL/min Random Glucose 174 H (70-110) mg/dL Lactic Acid, Venous 2.5 H* (0.4-2.0) mmol/L ALT 18 L (19-67) U/L Troponin I 3.090 H* (0.00-0.10) ng/mL B-Natriuretic Peptide 2881 H (5-650) pg/mL Albumin 2.8 L (3.4-5.0) gm/dl Urine Protein (NEGATIVE) mg/dL Urine Blood (NEGATIVE) /ul Prot Sulfosalicylic Acd (0) mg/dL Urine RBC (0-5) /hpf 08/17/18 08/17/18 Range/Units 17:27 18:04 WBC (4.0-10.5) K/mm3 RBC (4.7-6.0) M/mm3 Hgb (13.5-18.0) gm/dL Hct (42.0-52.0) % MCV (78-100) fl MCH (27-31) pg RDW (11.5-14.0) % Plt Count (150-450) K/mm3 Neutrophils % (Manual) (42-75) % Lymphocytes % (Manual) (20-51) % Neutrophils # (Manual) (1.3-6.0) K/mm3 Monocytes # (Manual) (0.0-1.0) k/mm3 Platelet Estimate (NORMAL) pO2 66.2 L (83.0-108.0) mmHg Total CO2 28.0 H (19.0-24.0) mmol/L ABG O2 Sat (Measured) 93.9 L (94.0-98.0) % Sodium (132-142) mmol/L Plasma Sodium (130-142) mmol/L BUN (6-23) mg/dL Creatinine (0.4-1.4) mg/dL Est GFR (Non-Af Amer) (60-130) mL/min Random Glucose (70-110) mg/dL Lactic Acid, Venous (0.4-2.0) mmol/L ALT (19-67) U/L Troponin I (0.00-0.10) ng/mL B-Natriuretic Peptide (5-650) pg/mL Albumin (3.4-5.0) gm/dl Urine Protein >=300 H (NEGATIVE) mg/dL Urine Blood 50 H (NEGATIVE) /ul Prot Sulfosalicylic Acd 4+ H (0) mg/dL Urine RBC 5-10 H (0-5) /hpf Laboratory Results WBC 23.7 K/mm3 (4.0-10.5) H 08/17/18 17:20 RBC 2.72 M/mm3 (4.7-6.0) L 08/17/18 17:20 Hgb 10.8 gm/dL (13.5-18.0) L 08/17/18 17:20 Hct 33.1 % (42.0-52.0) L 08/17/18 17:20 MCV 121.7 fl (78-100) H 08/17/18 17:20 MCH 39.7 pg (27-31) H 08/17/18 17:20 MCHC 32.6 g/dl (32-36) 08/17/18 17:20 RDW 15.8 % (11.5-14.0) H 08/17/18 17:20 Plt Count 501 K/mm3 (150-450) H 08/17/18 17:20 MPV 9.3 fl (8-11.3) 08/17/18 17:20 76 % (42-75) H 08/17/18 17:20 Band Neuts % (Manual) 1 % (0-2.0) 08/17/18 17:20 14 % (20-51) L 08/17/18 17:20 7 % (0-9) 08/17/18 17:20 18.0 K/mm3 (1.3-6.0) H 08/17/18 17:20 3.3 k/mm3 (1.5-3.5) 08/17/18 17:20 1.7 k/mm3 (0.0-1.0) H 08/17/18 17:20 Atypic/Reactive Lymphs 2 % (0-2) 08/17/18 17:20 Increased (NORMAL) H 08/17/18 17:20 1+ 08/17/18 17:20 Trace 08/17/18 17:20 Trace 08/17/18 17:20 pCO2 39.9 mmHg (35.0-48.0) 08/17/18 17:27 pO2 66.2 mmHg (83.0-108.0) L 08/17/18 17:27 HCO3 26.7 mmol/L (21.0-28.0) 08/17/18 17:27 Total CO2 28.0 mmol/L (19.0-24.0) H 08/17/18 17:27 Base Excess 2.5 mmol/L (-2.0-3.0) 08/17/18 17:27 ABG pH 7.44 (7.35-7.45) 08/17/18 17:27 ABG O2 Sat (Measured) 93.9 % (94.0-98.0) L 08/17/18 17:27 Sodium 143 mmol/L (132-142) H 08/17/18 17:20 144 mmol/L (130-142) H 08/17/18 17:20 Potassium 4.4 mmol/L (3.4-4.6) 08/17/18 17:20 Chloride 104 mmol/L (97-106) 08/17/18 17:20 Carbon Dioxide 30.7 mmol/L (24-32.6) 08/17/18 17:20 12.7 mmol/L (6.8-13.8) 08/17/18 17:20 BUN 25 mg/dL (6-23) H 08/17/18 17:20 1.80 mg/dL (0.4-1.4) H 08/17/18 17:20 Est GFR (Non-Af Amer) 38 mL/min (60-130) L 08/17/18 17:20 13.9 (9.0-21.6) 08/17/18 17:20 174 mg/dL (70-110) H 08/17/18 17:20 0.9 mmol/L (0.4-2.0) 08/17/18 20:45 Calcium 8.6 mg/dL (7.9-10.9) 08/17/18 17:20 Calcium Adj for Albumin 9.2 mg/dL (8.4-10.2) 08/17/18 17:20 0.6 mg/dL (0.0-1.1) 08/17/18 17:20 AST 31 U/L (0-48) 08/17/18 17:20 ALT 18 U/L (19-67) L 08/17/18 17:20 83 U/L (50-170) 08/17/18 17:20 3.090 ng/mL (0.00-0.10) H* 08/17/18 17:20 B-Natriuretic Peptide 2881 pg/mL (5-650) H 08/17/18 17:20 6.6 gm/dL (6.2-8.2) 08/17/18 17:20 2.8 gm/dl (3.4-5.0) L 08/17/18 17:20 Yellow 08/17/18 18:04 Clear (CLEAR) 08/17/18 18:04 6.0 pH (5.0-7.0) 08/17/18 18:04 Ur Specific [place] 1.020 SP.GR. (1.005-1.030) 08/17/18 18:04 >=300 mg/dL (NEGATIVE) H 08/17/18 18:04 Negative mg/dL (NEGATIVE) 08/17/18 18:04 Negative mg/dL (NEGATIVE) 08/17/18 18:04 50 /ul (NEGATIVE) H 08/17/18 18:04 Negative (NEGATIVE) 08/17/18 18:04 Negative mg/dl (NEGATIVE) 08/17/18 18:04 Prot Sulfosalicylic Acd 4+ mg/dL (0) H 08/17/18 18:04 Normal EU/dl (NORMAL) 08/17/18 18:04 Ur Leukocyte Esterase Negative /ul (NEGATIVE) 08/17/18 18:04 5-10 /hpf (0-5) H 08/17/18 18:04 None seen /hpf (0-5) 08/17/18 18:04 Ur Epithelial Cells None seen /hpf (0-5) 08/17/18 18:04 None seen (NONE) 08/17/18 18:04 No culture indicated 08/17/18 18:04 Digoxin 0.6 ng/mL (0.5-2.0) 08/17/18 17:20 Influenza Type A Ag Negative (NEGATIVE) 08/17/18 17:50 Influenza Type B Ag Negative (NEGATIVE) 08/17/18 17:50 Assessment/Plan - Narrative Narrative: Patient was evaluated and medical chart was reviewed and decision to admit with a diagnosis of bronchopneumonia, hypoxia, Sirs, decompensated CHF and elevated troponin was made. Patient is severely ill but at the moment he maintained stable vitals, during bedside evaluation patient was unaccompanied and there were no family members present. However ER physician reported that family only want comfort measures and no heroics during this hospitalization. Patient is DNR status. All routine meds were reconciled and we will continue to administer them during his hospitalization until family says otherwise. For now we will treat patient with IV antibiotics for his apparent pneumonia, and keep him on oxygen by nasal cannula. Patient's family were informed that he has an elevated troponin and although he has not reported chest pain there is always a chance of cardiac ischemia or myocardial infarct, the expressed that they wanted the patient hospitalized here despite this hospital not being a cardiac hospital. Will order follow-up labs for reevaluation in the morning. - Assessment/Plan (1) Bronchopneumonia Problem: Acute (2) SIRS (systemic inflammatory response syndrome) Problem: Acute (3) Hypoxia Problem: Acute (4) Macrocytic anemia Problem: Acute (5) Chronic illness Problem: Acute (6) DNR (do not resuscitate) Problem: Acute (7) End of life care Problem: Acute (8) End of life care Problem: Acute (9) Elevated troponin Problem: Acute (10) Acute decompensated heart failure Problem: Acute (11) Acute decompensated heart failure Problem: Acute
[2018-08-18] MEDS: FAMOTIDINE 20 MG in DEXTROSE 5 % IN WATER 100 ML IV SCH ×4 (00:49→12:58)
[2018-08-18 05:59] LABS: Hematocrit 30.6 % (42.0-52.0); Hemoglobin 9.7 gm/dL (13.5-18.0); Mean Cell Volume 121.4 fl (78-100); Mean Corpuscular Hemoglobin 38.5 pg (27-31); Mean Corpuscular Hgb Conc 31.7 g/dl (32-36); Mean Platelet Volume 9.5 fl (8-11.3); Platelet Count 413 K/mm3 (150-450); Red Blood Count 2.52 M/mm3 (4.7-6.0); Red Cell Distribution Width 15.4 % (11.5-14.0); White Blood Count 16.7 K/mm3 (4.0-10.5)
[2018-08-18 06:01] LABS: Total Cells Counted 100
[2018-08-18 06:11] LABS: Albumin * 2.5 gm/dl (3.4-5.0); Anion Gap 12.3 mmol/L (6.8-13.8); BUN/Creatinine Ratio 14.5 (9.0-21.6); Bilirubin, Total 0.6 mg/dL (0.0-1.1); Ca. Corrected For Albumin 9.1 mg/dL (8.4-10.2); Calcium * 8.2 mg/dL (7.9-10.9); Carbon Dioxide 30.3 mmol/L (24-32.6); Potassium 3.6 mmol/L (3.4-4.6); Total Protein 6.1 gm/dL (6.2-8.2)
[2018-08-18 06:53] LABS: Band 5 % (0-2.0); Lymphocyte 3 % (20-51); Monocyte 5 % (0-9); Neutrophil 87 % (42-75); Neutrophil # 14.5 K/mm3 (1.3-6.0); Platelet Estimate Normal (NORMAL)
[2018-08-18 06:55] LABS: Hypochromia Trace; Macrocytosis 3+; Polychromasia 1+
[2018-08-18 06:56] LABS: Toxic Granulation Trace
[2018-08-18] MEDS ORDERED: amLODIPine BESYLATE 5 MG TABLET PO SCH (09:00)
[2018-08-18] MEDS ORDERED: FAMOTIDINE 20 MG TABLET PO SCH (09:00)
[2018-08-18] MEDS: LORATADINE 10 MG TABLET PO SCH (09:48)
[2018-08-18] MEDS: POTASSIUM CHLORIDE 20 MEQ TABLET.SA PO SCH ×3 (09:49→17:38)
[2018-08-18] MEDS: GABAPENTIN 300 MG CAPSULE PO SCH ×3 (09:49→17:38)
[2018-08-18] MEDS: DIGOXIN 0.125 MG TABLET PO SCH (09:49)
[2018-08-18] MEDS: HYDROXYUREA 500 MG CAPSULE PO SCH (09:49)
[2018-08-18] MEDS: DOCUSATE SODIUM 100 MG CAPSULE PO SCH (09:49)
[2018-08-18] MEDS: LISINOPRIL 40 MG TABLET PO SCH (09:50)
[2018-08-18] MEDS: amLODIPine BESYLATE 10 MG TABLET PO SCH (09:50)
[2018-08-18] MEDS: MULTIVITAMINS 1 CAP CAPSULE PO SCH (09:50)
[2018-08-18] MEDS: PROBENECID 500 MG TABLET PO SCH ×2 (09:51→21:28)
[2018-08-18] MEDS: HYDROcodone/ACETAMINOPHEN 1 EACH TABLET PO SCH ×2 (09:53→21:34)
--- NOTE | 2018-08-18 11:26 | PN ---
Subjective - Date and Time Seen Date: 08/18/18 Time: 11:12 Subjective Narrative: I am breathing better, less short of breath but still have cough Objective Objective Narrative: 88-year-old male admitted for bronchopneumonia, hypoxia, Sirs, and CHF exacerbation was evaluated at bedside and was found to be afebrile and in no acute distress. Patient has shown clinical improvement in his shortness of breath has improved and he maintains adequate oxygen saturation with nasal cannula. During rounds this morning patient appeared drowsier than yesterday but easily arousable, he is following commands, and answers questions when asked. Patient maintains stable vitals and this morning's labs demonstrate improvement in his leukocytosis with decreased WBCs and improvement in his renal function after his soft hydration. Patient had an elevated troponin upon admission but he denies chest pain and EKG was negative for ST elevations. He is normally treated with oral furosemide but we will treat him with IV furosem marty during his hospitalization to address his CHF. The long-term plan was discussed with patient's son and he says that hospice care is being discussed with the family, once a decision is reached he will let me know if you would like me to put hospice orders. In the meantime we will continue to treat patient with IV antibiotics soft IV hydration, we will wean oxygen to his baseline and follow-up in the morning with follow-up labs. - Review of Systems Generalized/Overall Review: Reports: Weakness EENTM: Reports: No Symptoms Reported Respiratory: Reports: Cough, Shortness of Breath Cardiac: Reports: Edema Abdominal: Reports: No Symptoms Reported Genitourinary Symptoms: Reports: No Symptoms Reported Musculoskeletal Complaints: Reports: No Symptoms Reported Neurological: Reports: Other - Patient is increasingly lethargic and more drowsy than usual. Skin: Reports: No Symptoms Reported Endocrine: Reports: No Symptoms Reported - Vitals Vitals: Last Vital Signs Temp 36.7 C 08/18/18 09:00 Pulse 74 08/18/18 09:50 Resp 35 H 08/18/18 09:00 BP 143/55 08/18/18 09:50 Pulse Ox 95 08/18/18 10:00 - Abnormal Lab Findings Abnormal Lab Findings: Abnormal Lab Results 08/17/18 08/17/18 08/17/18 Range/Units 17:20 17:20 17:20 WBC 23.7 H (4.0-10.5) K/mm3 RBC 2.72 L (4.7-6.0) M/mm3 Hgb 10.8 L (13.5-18.0) gm/dL Hct 33.1 L (42.0-52.0) % MCV 121.7 H (78-100) fl MCH 39.7 H (27-31) pg MCHC (32-36) g/dl RDW 15.8 H (11.5-14.0) % Plt Count 501 H (150-450) K/mm3 Neutrophils % (Manual) 76 H (42-75) % Band Neuts % (Manual) (0-2.0) % Lymphocytes % (Manual) 14 L (20-51) % Neutrophils # (Manual) 18.0 H (1.3-6.0) K/mm3 Lymphocytes # (Manual) (1.5-3.5) k/mm3 Monocytes # (Manual) 1.7 H (0.0-1.0) k/mm3 Platelet Estimate Increased H (NORMAL) pO2 (83.0-108.0) mmHg Total CO2 (19.0-24.0) mmol/L ABG O2 Sat (Measured) (94.0-98.0) % Sodium 143 H (132-142) mmol/L Plasma Sodium 144 H (130-142) mmol/L BUN 25 H (6-23) mg/dL Creatinine 1.80 H (0.4-1.4) mg/dL Est GFR (Non-Af Amer) 38 L (60-130) mL/min Random Glucose 174 H (70-110) mg/dL Lactic Acid, Venous 2.5 H* (0.4-2.0) mmol/L ALT 18 L (19-67) U/L Troponin I 3.090 H* (0.00-0.10) ng/mL B-Natriuretic Peptide 2881 H (5-650) pg/mL Total Protein (6.2-8.2) gm/dL Albumin 2.8 L (3.4-5.0) gm/dl Urine Protein (NEGATIVE) mg/dL Urine Blood (NEGATIVE) /ul Prot Sulfosalicylic Acd (0) mg/dL Urine RBC (0-5) /hpf 08/17/18 08/17/18 08/18/18 Range/Units 17:27 18:04 05:40 WBC 16.7 H D (4.0-10.5) K/mm3 RBC 2.52 L (4.7-6.0) M/mm3 Hgb 9.7 L (13.5-18.0) gm/dL Hct 30.6 L (42.0-52.0) % MCV 121.4 H (78-100) fl MCH 38.5 H (27-31) pg MCHC 31.7 L (32-36) g/dl RDW 15.4 H (11.5-14.0) % Plt Count (150-450) K/mm3 Neutrophils % (Manual) 87 H (42-75) % Band Neuts % (Manual) 5 H (0-2.0) % Lymphocytes % (Manual) 3 L (20-51) % Neutrophils # (Manual) 14.5 H (1.3-6.0) K/mm3 Lymphocytes # (Manual) 0.5 L (1.5-3.5) k/mm3 Monocytes # (Manual) (0.0-1.0) k/mm3 Platelet Estimate (NORMAL) pO2 66.2 L (83.0-108.0) mmHg Total CO2 28.0 H (19.0-24.0) mmol/L ABG O2 Sat (Measured) 93.9 L (94.0-98.0) % Sodium (132-142) mmol/L Plasma Sodium (130-142) mmol/L BUN (6-23) mg/dL Creatinine (0.4-1.4) mg/dL Est GFR (Non-Af Amer) (60-130) mL/min Random Glucose (70-110) mg/dL Lactic Acid, Venous (0.4-2.0) mmol/L ALT (19-67) U/L Troponin I (0.00-0.10) ng/mL B-Natriuretic Peptide (5-650) pg/mL Total Protein (6.2-8.2) gm/dL Albumin (3.4-5.0) gm/dl Urine Protein >=300 H (NEGATIVE) mg/dL Urine Blood 50 H (NEGATIVE) /ul Prot Sulfosalicylic Acd 4+ H (0) mg/dL Urine RBC 5-10 H (0-5) /hpf 06/06/19 Range/Units 05:40 WBC (4.0-10.5) K/mm3 RBC (4.7-6.0) M/mm3 Hgb (13.5-18.0) gm/dL Hct (42.0-52.0) % MCV (78-100) fl MCH (27-31) pg MCHC (32-36) g/dl RDW (11.5-14.0) % Plt Count (150-450) K/mm3 Neutrophils % (Manual) (42-75) % Band Neuts % (Manual) (0-2.0) % Lymphocytes % (Manual) (20-51) % Neutrophils # (Manual) (1.3-6.0) K/mm3 Lymphocytes # (Manual) (1.5-3.5) k/mm3 Monocytes # (Manual) (0.0-1.0) k/mm3 Platelet Estimate (NORMAL) pO2 (83.0-108.0) mmHg Total CO2 (19.0-24.0) mmol/L ABG O2 Sat (Measured) (94.0-98.0) % Sodium 145 H (132-142) mmol/L Plasma Sodium 146 H (130-142) mmol/L BUN 24 H (6-23) mg/dL Creatinine 1.65 H (0.4-1.4) mg/dL Est GFR (Non-Af Amer) 42 L (60-130) mL/min Random Glucose 155 H (70-110) mg/dL Lactic Acid, Venous (0.4-2.0) mmol/L ALT (19-67) U/L Troponin I (0.00-0.10) ng/mL B-Natriuretic Peptide (5-650) pg/mL Total Protein 6.1 L (6.2-8.2) gm/dL Albumin 2.5 L (3.4-5.0) gm/dl Urine Protein (NEGATIVE) mg/dL Urine Blood (NEGATIVE) /ul Prot Sulfosalicylic Acd (0) mg/dL Urine RBC (0-5) /hpf - Exam Constitutional: Present: Alert, Cooperative, Well developed, Well nourished, No distress, Somnolent, Elderly ENT Exam: Present: normal ENT inspection, hearing grossly normal, pharynx normal, TMs normal Neck: Present: non-tender, full range of motion, supple, normal inspection, trachea midline Breasts: Present: Exam deferred Respiratory: Present: chest non-tender, no accessory muscle use, decreased breath sounds, crackles - Fine bibasilar crackles Cardiovascular/Chest: Present: normal peripheral pulses, regular rate, rhythm, no chest tenderness, no murmur, JVD, edema - Bilateral 3+ edema Abdomen: Present: Normal bowel sounds, soft, no hepatospenomegaly, no masses, obese, tender - Right upper and epigastric mild tenderness /Rectal: Present: Exam deferred Extremity: Present: normal range of motion, non-tender, no calf tenderness, pedal edema, swelling Skin Exam: Present: normal color, warm/dry, no cyanosis Lymphatic: Present: no adenopathy 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: 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 We have ordered follow-up labs for tomorrow morning to evaluate WBCs, electrolytes, renal function, and BNP levels. Hospice care is been discussed within the family and will let us know what they decide. In the meantime, we will initiate discharge planning back to [facility] which is where the patient resides. Patient remains DNR status but family is okay with treating him with his routine meds and medication to treat his acute condition. Orders to wean oxygen to baseline levels were placed, at the time being patient is saturating adequately and is no longer short of breath. We will continue to monitor him closely. - Problems/Diagnosis (1) Bronchopneumonia Problem: Acute (2) SIRS (systemic inflammatory response syndrome) Problem: Acute (3) Hypoxia Problem: Resolved (4) Macrocytic anemia Problem: Chronic (5) Chronic illness Problem: Chronic (6) DNR (do not resuscitate) Problem: Acute (7) End of life care Problem: Acute (8) Elevated troponin Problem: Acute (9) Acute decompensated heart failure Problem: Acute
[2018-08-18] MEDS ORDERED: FUROSEMIDE 40 MG TABLET PO SCH (14:00)
[2018-08-18] MEDS ORDERED: LEVOFLOXACIN IN DEXTROSE 5 % 500 MG/100 ML BAG IV SCH (17:30)
[2018-08-18] MEDS: FUROSEMIDE 10 MG/ML VIAL IV SCH (21:24)
[2018-08-18] MEDS: TAMSULOSIN HCL 0.4 MG CAP.SR.24H PO SCH (21:28)
[2018-08-19] MEDS: FAMOTIDINE 20 MG in DEXTROSE 5 % IN WATER 100 ML IV SCH ×4 (01:00→12:44)
[2018-08-19 06:01] LABS: Hematocrit 29.4 % (42.0-52.0); Hemoglobin 9.4 gm/dL (13.5-18.0); Mean Cell Volume 124.1 fl (78-100); Mean Corpuscular Hemoglobin 39.7 pg (27-31); Mean Platelet Volume 9.6 fl (8-11.3); Platelet Count 349 K/mm3 (150-450); Red Blood Count 2.37 M/mm3 (4.7-6.0); Red Cell Distribution Width 15.9 % (11.5-14.0); White Blood Count 9.8 K/mm3 (4.0-10.5)
[2018-08-19 06:06] LABS: Total Cells Counted 100
[2018-08-19 06:15] LABS: Atypical (Reactive) Lymph 1 % (0-2); Band 5 % (0-2.0); Immature Granulocyte 7 (0-1); Lymphocyte 12 % (20-51); Monocyte 3 % (0-9); Neutrophil 72 % (42-75); Neutrophil # 7.1 K/mm3 (1.3-6.0)
[2018-08-19 06:16] LABS: Dohle Bodies 1+; Hypochromia 1+; Platelet Estimate Normal (NORMAL); Toxic Granulation 2+
[2018-08-19 06:18] LABS: Albumin * 2.4 gm/dl (3.4-5.0); Anion Gap 13.1 mmol/L (6.8-13.8); BUN/Creatinine Ratio 18.3 (9.0-21.6); Bilirubin, Total 0.5 mg/dL (0.0-1.1); Ca. Corrected For Albumin 9.4 mg/dL (8.4-10.2); Calcium * 8.4 mg/dL (7.9-10.9); Carbon Dioxide 29.6 mmol/L (24-32.6); Potassium 3.7 mmol/L (3.4-4.6); Total Protein 5.9 gm/dL (6.2-8.2)
[2018-08-19] MEDS: NORMAL SALINE 1,000 ML IV PRN (08:39)
[2018-08-19] MEDS: LORATADINE 10 MG TABLET PO SCH (08:40)
[2018-08-19] MEDS: HYDROXYUREA 500 MG CAPSULE PO SCH (08:40)
[2018-08-19] MEDS: MULTIVITAMINS 1 CAP CAPSULE PO SCH (08:41)
[2018-08-19] MEDS: POTASSIUM CHLORIDE 20 MEQ TABLET.SA PO SCH ×3 (08:41→17:20)
[2018-08-19] MEDS: DIGOXIN 0.125 MG TABLET PO SCH (08:41)
[2018-08-19] MEDS: amLODIPine BESYLATE 10 MG TABLET PO SCH (08:41)
[2018-08-19] MEDS: LISINOPRIL 40 MG TABLET PO SCH (08:41)
[2018-08-19] MEDS: PROBENECID 500 MG TABLET PO SCH ×2 (08:41→21:29)
[2018-08-19] MEDS: DOCUSATE SODIUM 100 MG CAPSULE PO SCH (08:42)
[2018-08-19] MEDS: GABAPENTIN 300 MG CAPSULE PO SCH ×3 (08:42→17:21)
[2018-08-19] MEDS: FUROSEMIDE 10 MG/ML VIAL IV SCH ×2 (08:42→21:30)
[2018-08-19] MEDS: HYDROcodone/ACETAMINOPHEN 1 EACH TABLET PO SCH ×2 (08:46→21:28)
[2018-08-19] MEDS ORDERED: NORMAL SALINE 500 ML IV ONE (11:19)
--- NOTE | 2018-08-19 11:47 | PN ---
Subjective - Date and Time Seen Date: 08/19/18 Time: 11:35 Subjective Narrative: I feel better today, no shortness of breath Objective Objective Narrative: 88-year-old male admitted for bronchopneumonia, hypoxia, Sirs, and CHF exacerbation was evaluated at bedside and was found to be afebrile and in no acute distress. Patient continues to show improvement, he is more alert has complete resolution of his shortness of breath, and has maintained stable vitals. There has not been recurrence of fever. Microbiology lab reports big growth of a gram-negative bacilli, so we will keep him on Levaquin but does have to be adjusted due to worsening of kidney function. We have been very careful with fluid hydration but given the decreased GFR we increased the rate. Patient must be watched for fluid overload since he has a known diagnosis of CHF. Patient WBCs have decreased to near normal levels but he has persistent bandemia, so follow-up labs were ordered for tomorrow morning to reevaluate these levels. - Review of Systems Generalized/Overall Review: Reports: No Symptoms Reported EENTM: Reports: No Symptoms Reported Respiratory: Reports: No Symptoms Reported Cardiac: Reports: Edema Abdominal: Reports: No Symptoms Reported Genitourinary Symptoms: Reports: No Symptoms Reported Musculoskeletal Complaints: Reports: No Symptoms Reported Neurological: Reports: No Symptoms Reported Skin: Reports: No Symptoms Reported Endocrine: Reports: No Symptoms Reported - Vitals Vitals: Last Vital Signs Temp 36.5 C 08/19/18 10:00 Pulse 75 08/19/18 10:00 Resp 20 08/19/18 10:00 BP 139/61 08/19/18 10:00 Pulse Ox 95 08/19/18 10:00 - Abnormal Lab Findings Abnormal Lab Findings: Abnormal Lab Results 08/19/18 08/19/18 Range/Units 05:55 05:55 RBC 2.37 L (4.7-6.0) M/mm3 Hgb 9.4 L (13.5-18.0) gm/dL Hct 29.4 L (42.0-52.0) % MCV 124.1 H (78-100) fl MCH 39.7 H (27-31) pg RDW 15.9 H (11.5-14.0) % Band Neuts % (Manual) 5 H (0-2.0) % Lymphocytes % (Manual) 12 L (20-51) % Immature Granulocytes 7 H (0-1) Neutrophils # (Manual) 7.1 H (1.3-6.0) K/mm3 Lymphocytes # (Manual) 1.2 L (1.5-3.5) k/mm3 Sodium 146 H (132-142) mmol/L Plasma Sodium 146 H (130-142) mmol/L Chloride 107 H (97-106) mmol/L BUN 33 H (6-23) mg/dL Creatinine 1.80 H (0.4-1.4) mg/dL Est GFR (Non-Af Amer) 38 L (60-130) mL/min Random Glucose 115 H (70-110) mg/dL Total Protein 5.9 L (6.2-8.2) gm/dL Albumin 2.4 L (3.4-5.0) gm/dl - Exam Constitutional: Present: Alert, Cooperative, Well developed, Well nourished, No distress ENT Exam: Present: normal ENT inspection, hearing grossly normal, pharynx normal, TMs normal Neck: Present: non-tender, full range of motion, supple, normal inspection, trachea midline Breasts: Present: Exam deferred Respiratory: Present: chest non-tender, lungs clear, no respiratory distress, no accessory muscle use, decreased breath sounds - Decreased breath sounds at lung bases bilaterally Cardiovascular/Chest: Present: normal peripheral pulses, regular rate, rhythm, no chest tenderness, no gallop, no JVD, edema - Bilateral pedal edema Abdomen: Present: Normal bowel sounds, soft, nontender, nondistended, no rebound tenderness, no hepatospenomegaly, obese /Rectal: Present: Exam deferred Extremity: Present: normal range of motion, non-tender, no calf tenderness, pedal edema Skin Exam: Present: normal color, warm/dry, no cyanosis Lymphatic: Present: no adenopathy 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 Patient must be watched for fluid overload given his CHF diagnosis. Final blood cultures should be released throughout the weekend, antibiotics will be adjusted accordingly. Also is actively being weaned until patient can return to his baseline of room air. Dr. Su is the covering physician for this weekend, he will be present to the case and take over the patient's care. - Problems/Diagnosis (1) Bronchopneumonia Problem: Acute (2) SIRS (systemic inflammatory response syndrome) Problem: Acute (3) Hypoxia Problem: Resolved (4) Macrocytic anemia Problem: Chronic (5) Chronic illness Problem: Chronic (6) DNR (do not resuscitate) Problem: Acute (7) Elevated troponin Problem: Acute (8) Acute decompensated heart failure Problem: Acute (9) Bacteremia Problem: Acute (10) Renal failure (ARF), acute on chronic Problem: Acute
[2018-08-19] MEDS: amLODIPine BESYLATE 5 MG TABLET PO SCH (12:24)
[2018-08-19] MEDS: TAMSULOSIN HCL 0.4 MG CAP.SR.24H PO SCH (21:26)
[2018-08-20] MEDS: FAMOTIDINE 20 MG in DEXTROSE 5 % IN WATER 100 ML IV SCH ×4 (00:05→12:38)
[2018-08-20 06:29] LABS: Albumin * 2.2 gm/dl (3.4-5.0); Anion Gap 10.4 mmol/L (6.8-13.8); BUN/Creatinine Ratio 19.9 (9.0-21.6); Bilirubin, Total 0.4 mg/dL (0.0-1.1); Ca. Corrected For Albumin 9.2 mg/dL (8.4-10.2); Calcium * 8.1 mg/dL (7.9-10.9); Carbon Dioxide 29.3 mmol/L (24-32.6); Potassium 3.7 mmol/L (3.4-4.6); Total Protein 5.7 gm/dL (6.2-8.2)
[2018-08-20 07:48] LABS: Hematocrit 27.5 % (42.0-52.0); Mean Cell Volume 122.2 fl (78-100); Mean Corpuscular Hgb Conc 32.7 g/dl (32-36); Mean Platelet Volume 10.3 fl (8-11.3); Platelet Count 381 K/mm3 (150-450); Red Blood Count 2.25 M/mm3 (4.7-6.0); Red Cell Distribution Width 15.2 % (11.5-14.0)
[2018-08-20 07:50] LABS: Total Cells Counted 100
[2018-08-20 07:51] LABS: Band 2 % (0-2.0); Eosinophil 2 % (0-3); Immature Granulocyte 6 (0-1); Lymphocyte 21 % (20-51); Monocyte 12 % (0-9); Neutrophil 57 % (42-75); Neutrophil # 4.6 K/mm3 (1.3-6.0)
[2018-08-20 07:52] LABS: Macrocytosis 2+; Platelet Estimate Normal (NORMAL)
[2018-08-20] MEDS: GABAPENTIN 300 MG CAPSULE PO SCH ×3 (08:35→16:59)
[2018-08-20] MEDS: POTASSIUM CHLORIDE 20 MEQ TABLET.SA PO SCH ×3 (08:35→16:59)
[2018-08-20] MEDS: LORATADINE 10 MG TABLET PO SCH (08:35)
[2018-08-20] MEDS: PROBENECID 500 MG TABLET PO SCH ×2 (08:35→20:19)
[2018-08-20] MEDS: HYDROXYUREA 500 MG CAPSULE PO SCH (08:35)
[2018-08-20] MEDS: MULTIVITAMINS 1 CAP CAPSULE PO SCH (08:35)
[2018-08-20] MEDS: DOCUSATE SODIUM 100 MG CAPSULE PO SCH (08:36)
[2018-08-20] MEDS: LISINOPRIL 40 MG TABLET PO SCH (08:36)
--- NOTE | 2018-08-20 08:39 | PN ---
Subjective - Date and Time Seen Date: 08/20/18 Time: 08:37 Subjective Narrative: Patient's BC shows H. Influenza. Afebrile since 08/18/2018. Lactic acidosis resolved. Cr clearance is 39 ml. Objective - Review of Systems Generalized/Overall Review: Denies: Chills, Fever EENTM: Denies: Blurred Vision Respiratory: Reports: Cough, Shortness of Breath. Denies: Wheezing Cardiac: Reports: Edema. Denies: Chest Pain, Palpitations Abdominal: Denies: Nausea, Vomiting Genitourinary Symptoms: Denies: Urgency, Frequency Musculoskeletal Complaints: Reports: Joint Pain. Denies: Back Pain Neurological: Denies: Headache Skin: Denies: Lesions, Rash Endocrine: Denies: Intolerance to Cold, Intolerance to Heat Misc: All systems neg except as marked - Vitals Vitals: Last Vital Signs Temp 37.3 C 08/20/18 07:26 Pulse 83 08/20/18 07:26 Resp 20 08/20/18 07:26 BP 151/77 H 08/20/18 07:26 Pulse Ox 95 08/20/18 07:26 - Abnormal Lab Findings Abnormal Lab Findings: Abnormal Lab Results 08/20/18 08/20/18 Range/Units 06:00 06:12 RBC 2.25 L (4.7-6.0) M/mm3 Hgb 9.0 L (13.5-18.0) gm/dL Hct 27.5 L (42.0-52.0) % MCV 122.2 H (78-100) fl MCH 40.0 H (27-31) pg RDW 15.2 H (11.5-14.0) % Monocytes % (Manual) 12 H (0-9) % Immature Granulocytes 6 H (0-1) Sodium 143 H (132-142) mmol/L Plasma Sodium 143 H (130-142) mmol/L Chloride 107 H (97-106) mmol/L BUN 31 H (6-23) mg/dL Creatinine 1.56 H (0.4-1.4) mg/dL Est GFR (Non-Af Amer) 45 L (60-130) mL/min Random Glucose 118 H (70-110) mg/dL Total Protein 5.7 L (6.2-8.2) gm/dL Albumin 2.2 L (3.4-5.0) gm/dl - Exam Constitutional: Present: Alert, Oriented x3, Cooperative, Elderly ENT Exam: Present: hearing grossly normal Neck: Present: supple Respiratory: Present: decreased breath sounds, crackles, No wheezing Cardiovascular/Chest: Present: regular rate, rhythm - with skipped beats, no JVD, no murmur Abdomen: Present: Normal bowel sounds, soft, nontender, nondistended Extremity: Present: no calf tenderness, pedal edema Assessment/Plan - Problems/Diagnosis (1) Bronchopneumonia Problem: Acute Narrative: H. Influenza. Reponding clinically to IV levaquin. leukocytosis and bandemia- resolved. posible discharge to [place] on Wednesday with oral levaquin. (2) Fever Problem: Resolved (3) Elevated troponin Problem: Acute Narrative: did not want aggressive measures. will recheck troponin and EKG. will start low dose Toprol Xl and likely start ASA and plavix. will defer starting therapeutic lovenox. (4) Acute decompensated heart failure Problem: Acute Narrative: BNP up to 4000+ from 2000+. will d/c IVF and change to TKVO, increase oral lasix to 80 mg Po qd, d/c amlopidine. recommend Echo on Wednesday before discharge- likely due to ischemic cardiomyopathy. already on VAL I and low dose toprol Xl started. (5) GERD (gastroesophageal reflux disease) Problem: Chronic (6) Renal failure (ARF), acute on chronic Problem: Acute Narrative: Cr improved. (7) Macrocytic anemia Problem: Chronic Narrative: will get B12 and folate.
[2018-08-20] MEDS: amLODIPine BESYLATE 10 MG TABLET PO SCH (09:16)
[2018-08-20] MEDS: amLODIPine BESYLATE 5 MG TABLET PO SCH (09:16)
[2018-08-20 09:42] LABS: Troponin I 2.577 ng/mL (0.00-0.10)
[2018-08-20] MEDS: HYDROcodone/ACETAMINOPHEN 1 EACH TABLET PO SCH ×2 (09:43→20:18)
[2018-08-20] MEDS: METOPROLOL SUCCINATE 25 MG TABLET.SA PO SCH (09:43)
[2018-08-20] MEDS ORDERED: ASPIRIN 325 MG TABLET.DR PO ONE (10:09)
[2018-08-20 10:38] LABS: Digoxin 0.8 ng/mL (0.5-2.0)
[2018-08-20] MEDS: CLOPIDOGREL BISULFATE 75 MG TABLET PO SCH (11:00)
[2018-08-20] MEDS: ENOXAPARIN SODIUM 30 MG/0.3 ML SYRG SC SCH (11:00)
[2018-08-20] MEDS ORDERED: FUROSEMIDE 40 MG TABLET PO SCH (14:00)
[2018-08-20] MEDS ORDERED: FUROSEMIDE 20 MG TABLET PO SCH ×2 (14:00)
[2018-08-20] MEDS: FUROSEMIDE 80 MG TABLET PO SCH (14:56)
[2018-08-20] MEDS: NORMAL SALINE 1,000 ML IV PRN (16:55)
[2018-08-20] MEDS ORDERED: LEVOFLOXACIN IN DEXTROSE 5 % 500 MG/100 ML BAG IV SCH (17:00)
[2018-08-20] MEDS: TAMSULOSIN HCL 0.4 MG CAP.SR.24H PO SCH (20:18)
[2018-08-21] MEDS: FAMOTIDINE 20 MG in DEXTROSE 5 % IN WATER 100 ML IV SCH ×2 (02:06)
[2018-08-21 06:00] LABS: Hematocrit 29.3 % (42.0-52.0); Hemoglobin 9.5 gm/dL (13.5-18.0); Mean Cell Volume 120.1 fl (78-100); Mean Corpuscular Hemoglobin 38.9 pg (27-31); Mean Corpuscular Hgb Conc 32.4 g/dl (32-36); Mean Platelet Volume 9.7 fl (8-11.3); Platelet Count 400 K/mm3 (150-450); Red Blood Count 2.44 M/mm3 (4.7-6.0); Red Cell Distribution Width 14.9 % (11.5-14.0); White Blood Count 8.7 K/mm3 (4.0-10.5)
[2018-08-21 06:04] LABS: Total Cells Counted 100
[2018-08-21 06:14] LABS: Anion Gap 11.9 mmol/L (6.8-13.8); BUN/Creatinine Ratio 20.3 (9.0-21.6); Blood Urea Nitrogen 28 mg/dL (6-23); Calcium * 8.4 mg/dL (7.9-10.9); Carbon Dioxide 28.6 mmol/L (24-32.6); Chloride 108 mmol/L (97-106); Estimated Creat Clear 45.3; Glucose * 116 mg/dL (70-110); Potassium 3.5 mmol/L (3.4-4.6); Sodium 145 mmol/L (132-142)
[2018-08-21 06:20] LABS: Band 5 % (0-2.0); Eosinophil 1 % (0-3); Immature Granulocyte 3 (0-1); Lymphocyte 17 % (20-51); Macrocytosis 2+; Monocyte 11 % (0-9); Neutrophil 63 % (42-75); Neutrophil # 5.5 K/mm3 (1.3-6.0); Platelet Estimate Normal (NORMAL)
[2018-08-21 07:07] LABS: Vitamin B12 579 pg/mL (193-986)
[2018-08-21] MEDS: HYDROcodone/ACETAMINOPHEN 1 EACH TABLET PO SCH ×2 (08:48→20:05)
[2018-08-21] MEDS: LISINOPRIL 40 MG TABLET PO SCH (08:49)
[2018-08-21] MEDS: ASPIRIN 81 MG TABLET.DR PO SCH (08:49)
[2018-08-21] MEDS: PROBENECID 500 MG TABLET PO SCH ×2 (08:49→20:05)
[2018-08-21] MEDS: POTASSIUM CHLORIDE 20 MEQ TABLET.SA PO SCH ×3 (08:49→17:24)
[2018-08-21] MEDS: LORATADINE 10 MG TABLET PO SCH (08:49)
[2018-08-21] MEDS: MULTIVITAMINS 1 CAP CAPSULE PO SCH (08:49)
[2018-08-21] MEDS: HYDROXYUREA 500 MG CAPSULE PO SCH (08:49)
[2018-08-21] MEDS: DOCUSATE SODIUM 100 MG CAPSULE PO SCH (08:49)
[2018-08-21] MEDS: CLOPIDOGREL BISULFATE 75 MG TABLET PO SCH (08:49)
[2018-08-21] MEDS: GABAPENTIN 300 MG CAPSULE PO SCH ×3 (08:49→17:24)
[2018-08-21] MEDS: METOPROLOL SUCCINATE 25 MG TABLET.SA PO SCH (08:50)
--- NOTE | 2018-08-21 09:33 | PN ---
Subjective - Date and Time Seen Date: 08/21/18 Time: 09:21 Subjective Narrative: Feels clinically better except for his his toes hurting him. Cr further improved to 1.38. Bands up again to 5 from normal of 2 yesterday. WBC continues to be normal. Objective - Review of Systems Generalized/Overall Review: Denies: Chills EENTM: Denies: Blurred Vision Respiratory: Reports: Cough, Shortness of Breath. Denies: Wheezing Cardiac: Denies: Chest Pain, Edema, Palpitations Abdominal: Denies: Vomiting, Abdominal Pain Genitourinary Symptoms: Denies: Urgency Musculoskeletal Complaints: Reports: Joint Pain. Denies: Back Pain Neurological: Denies: Headache Skin: Denies: Rash Endocrine: Denies: Intolerance to Cold, Intolerance to Heat Misc: All systems neg except as marked - Vitals Vitals: Last Vital Signs Temp 36.8 C 08/21/18 06:36 Pulse 69 08/21/18 08:50 Resp 18 08/21/18 06:36 BP 176/81 H 08/21/18 08:50 Pulse Ox 96 08/21/18 06:36 - Abnormal Lab Findings Abnormal Lab Findings: Abnormal Lab Results 08/20/18 08/21/18 08/21/18 Range/Units 06:15 06:00 06:00 RBC 2.44 L (4.7-6.0) M/mm3 Hgb 9.5 L (13.5-18.0) gm/dL Hct 29.3 L (42.0-52.0) % MCV 120.1 H (78-100) fl MCH 38.9 H (27-31) pg RDW 14.9 H (11.5-14.0) % Band Neuts % (Manual) 5 H (0-2.0) % Lymphocytes % (Manual) 17 L (20-51) % Monocytes % (Manual) 11 H (0-9) % Immature Granulocytes 3 H (0-1) Sodium 145 H (132-142) mmol/L Plasma Sodium 145 H (130-142) mmol/L Chloride 108 H (97-106) mmol/L BUN 28 H (6-23) mg/dL Est GFR (Non-Af Amer) 52 L (60-130) mL/min Random Glucose 116 H (70-110) mg/dL Troponin I 2.577 H* (0.00-0.10) ng/mL - Exam Constitutional: Present: Alert, Oriented x3, Cooperative, Elderly ENT Exam: Present: hearing grossly normal Neck: Present: limited range of motion Respiratory: Present: decreased breath sounds, rales, wheezing - occasional Cardiovascular/Chest: Present: regular rate, rhythm - with skipped beats, no JVD, no murmur Abdomen: Present: Normal bowel sounds, soft, nontender, nondistended Extremity: Present: no calf tenderness, pedal edema Assessment/Plan - Problems/Diagnosis (1) Bronchopneumonia Problem: Acute Narrative: continue with IV levaquin (2) Fever Problem: Resolved (3) Elevated troponin Problem: Acute (4) Acute decompensated heart failure Problem: Acute (5) GERD (gastroesophageal reflux disease) Problem: Chronic (6) Renal failure (ARF), acute on chronic Problem: Acute (7) Macrocytic anemia Problem: Chronic Narrative: Folate and b12 were normal. may need to do Homcocysteine and MMA. (8) Toe pain, bilateral Problem: Acute Narrative: likely OA but will add uric acid, ESR, CRP. his bands might be due to inflammation now more than infection.
[2018-08-21 10:13] LABS: CRP 8.8 mg/dL (0.0-0.9)
[2018-08-21] MEDS: ENOXAPARIN SODIUM 30 MG/0.3 ML SYRG SC SCH (10:50)
[2018-08-21 10:54] LABS: Uric Acid 8.7 mg/dL (2.6-7.2)
[2018-08-21] MEDS: FUROSEMIDE 80 MG TABLET PO SCH (14:16)
[2018-08-21] MEDS: COLCHICINE 0.6 MG TABLET PO SCH (15:07)
[2018-08-21] MEDS: TAMSULOSIN HCL 0.4 MG CAP.SR.24H PO SCH (20:05)
[2018-08-22] MEDS ORDERED: PANTOPRAZOLE SODIUM 40 MG TABLET.EC PO SCH (07:00)
[2018-08-22] MEDS: ASPIRIN 81 MG TABLET.DR PO SCH (08:08)
[2018-08-22] MEDS: DIGOXIN 0.125 MG TABLET PO SCH (08:08)
[2018-08-22] MEDS: METOPROLOL SUCCINATE 25 MG TABLET.SA PO SCH (08:08)
[2018-08-22] MEDS: LISINOPRIL 40 MG TABLET PO SCH (08:08)
[2018-08-22] MEDS: GABAPENTIN 300 MG CAPSULE PO SCH ×2 (08:08→13:32)
[2018-08-22] MEDS: HYDROXYUREA 500 MG CAPSULE PO SCH (08:08)
[2018-08-22] MEDS: CLOPIDOGREL BISULFATE 75 MG TABLET PO SCH (08:08)
[2018-08-22] MEDS: POTASSIUM CHLORIDE 20 MEQ TABLET.SA PO SCH ×2 (08:08→13:32)
[2018-08-22] MEDS: PROBENECID 500 MG TABLET PO SCH (08:08)
[2018-08-22] MEDS: MULTIVITAMINS 1 CAP CAPSULE PO SCH (08:08)
[2018-08-22] MEDS: LORATADINE 10 MG TABLET PO SCH (08:09)
[2018-08-22] MEDS: DOCUSATE SODIUM 100 MG CAPSULE PO SCH (08:09)
[2018-08-22] MEDS: COLCHICINE 0.6 MG TABLET PO SCH (08:16)
[2018-08-22] MEDS: HYDROcodone/ACETAMINOPHEN 1 EACH TABLET PO SCH (08:16)
--- NOTE | 2018-08-22 10:43 | DS ---
(1) Acute coronary syndrome Problem: Acute (2) Acute decompensated heart failure Problem: Acute (3) Bacteremia Problem: Acute (4) Renal failure (ARF), acute on chronic Problem: Acute (5) Atrial fibrillation Problem: Chronic Qualifiers: Atrial fibrillation type: unspecified Qualified Code(s): I48.91 - Unspecified atrial fibrillation (6) HTN (hypertension) Problem: Chronic Qualifiers: Hypertension type: essential hypertension Qualified Code(s): I10 - Essential (primary) hypertension (7) History of esophageal stricture Problem: Chronic (8) Macrocytic anemia Problem: Chronic (9) Fever Problem: Resolved Description of Stay: Patient with past medical history of A. fib, heart failure, chronic renal failure, anemia, hypertension, repeated esophageal strictures, GI bleed 6 months ago presented to the ED for increased shortness of breath. He is a resident of the [facility]. His health has declined over the last year. In the ED, his lactate was elevated to 2.5, troponin elevated to 3.09, and he had altered mental status. He and his family have been contemplating hospice care, but this decision had not yet been made. Transfer to a higher acuity hospital was offered, but he and his family declined, and wanted some acute treatment and comfort measures. He was started on Levaquin and gently hydrated. His shortness of breath improved. It was felt that his shortness of breath may have been secondary to an PA. His initial troponin was 3.09 on August 17, and was repeated on August 20 and was 2.577. Reviewing his EKG, the initial EKG had lots of artifact, but there is possible elevation in leads II to III and aVF. There is potentially elevation in the precordial leads, but they are not contiguous. He was started on post PA medicines, including aspirin, Plavix, Toprol. His blood culture was also positive for H influenza. He was given 5 days of Levaquin and since he improved, will not continue after DC. Sensitivity pending. Briefly discussed goals of care with his son Silvio. Will schedule a time to sit down with the family at [place] to do this formally. Also briefly discussed this with Nas, and he would like his family present. We will continue all current medicines until that conversation. Procedures Performed: none Results and Findings: Pending [employer] Results 08/17/18 17:20 Blood - Preliminary 08/17/18 17:50 Blood Blood Culture - Preliminary NO GROWTH AFTER 48 HOURS Lab Pending Results 08/17/18 17:20: WBC 23.7 H, RBC 2.72 L, Hgb 10.8 L, Hct 33.1 L, MCV 121.7 H, MCH 39.7 H, MCHC 32.6, RDW 15.8 H, Plt Count 501 H, MPV 9.3, Neutrophils % (Manual) 76 H, Band Neuts % (Manual) 1, Lymphocytes % (Manual) 14 L, Monocytes % (Manual) 7, Neutrophils # (Manual) 18.0 H, Lymphocytes # (Manual) 3.3, Monocytes # (Manual) 1.7 H, Atypic/Reactive Lymphs 2, Platelet Estimate Increased H, Hypochromasia 1+, Anisocytosis Trace, Macrocytosis Trace 08/17/18 17:20: Sodium 143 H, Plasma Sodium 144 H, Potassium 4.4, Chloride 104, Carbon Dioxide 30.7, Anion Gap 12.7, BUN 25 H, Creatinine 1.80 H, Est GFR (Non- Af Amer) 38 L, BUN/Creatinine Ratio 13.9, Random Glucose 174 H, Calcium 8.6, Calcium Adj for Albumin 9.2, Total Bilirubin 0.6, AST 31, ALT 18 L, Alkaline Phosphatase 83, Troponin I 3.090 H*, B-Natriuretic Peptide 2881 H, Total Protein 6.6, Albumin 2.8 L, Digoxin 0.6 08/17/18 17:20: Lactic Acid, Venous 2.5 H* 08/17/18 17:27: pCO2 39.9, pO2 66.2 L, HCO3 26.7, Total CO2 28.0 H, Base Excess 2.5, ABG pH 7.44, ABG O2 Sat (Measured) 93.9 L 08/17/18 17:50: Influenza Type A Ag Negative, Influenza Type B Ag Negative 08/17/18 18:04: Urine Color Yellow, Urine Appearance Clear, Urine pH 6.0, Ur Specific [place] 1.020, Urine Protein >=300 H, Urine Glucose (UA) Negative, Urine Ketones Negative, Urine Blood 50 H, Urine Nitrate Negative, Urine Bilirubin Negative, Prot Sulfosalicylic Acd 4+ H, Urine Urobilinogen Normal, Ur Leukocyte Esterase Negative, Urine RBC 5-10 H, Urine WBC None seen, Ur Epithelial Cells None seen, Urine Bacteria None seen, Urine Culture Comments No culture indicated 08/17/18 20:45: Lactic Acid, Venous 0.9 08/18/18 05:40: WBC 16.7 H D, RBC 2.52 L, Hgb 9.7 L, Hct 30.6 L, MCV 121.4 H, MCH 38.5 H, MCHC 31.7 L, RDW 15.4 H, Plt Count 413, MPV 9.5, Neutrophils % (Manual) 87 H, Band Neuts % (Manual) 5 H, Lymphocytes % (Manual) 3 L, Monocytes % (Manual) 5, Neutrophils # (Manual) 14.5 H, Lymphocytes # (Manual) 0.5 L, Monocytes # (Manual) 0.8, Toxic Granulation Trace, Platelet Estimate Normal, Polychromasia 1+, Hypochromasia Trace, Macrocytosis 3+ 08/18/18 05:40: Sodium 145 H, Plasma Sodium 146 H, Potassium 3.6, Chloride 106, Carbon Dioxide 30.3, Anion Gap 12.3, BUN 24 H, Creatinine 1.65 H, Est GFR (Non- Af Amer) 42 L, BUN/Creatinine Ratio 14.5, Random Glucose 155 H, Calcium 8.2, Calcium Adj for Albumin 9.1, Total Bilirubin 0.6, AST 41, ALT 20, Alkaline Phosphatase 74, Total Protein 6.1 L, Albumin 2.5 L 08/19/18 05:55: WBC 9.8 D, RBC 2.37 L, Hgb 9.4 L, Hct 29.4 L, MCV 124.1 H, MCH 39.7 H, MCHC 32.0, RDW 15.9 H, Plt Count 349, MPV 9.6, Neutrophils % (Manual) 72, Band Neuts % (Manual) 5 H, Lymphocytes % (Manual) 12 L, Monocytes % (Manual) 3, Immature Granulocytes 7 H, Neutrophils # (Manual) 7.1 H, Lymphocytes # (Manual) 1.2 L, Monocytes # (Manual) 0.3, Atypic/Reactive Lymphs 1, Toxic Granulation 2+, Toxic Vacuolation 1+, Dohle Bodies 1+, Platelet Estimate Normal, Hypochromasia 1+ 08/19/18 05:55: Sodium 146 H, Plasma Sodium 146 H, Potassium 3.7, Chloride 107 H, Carbon Dioxide 29.6, Anion Gap 13.1, BUN 33 H, Creatinine 1.80 H, Est GFR (Non-Af Amer) 38 L, BUN/Creatinine Ratio 18.3, Random Glucose 115 H, Calcium 8.4, Calcium Adj for Albumin 9.4, Total Bilirubin 0.5, AST 42, ALT 25, Alkaline Phosphatase 65, Total Protein 5.9 L, Albumin 2.4 L 08/20/18 06:00: WBC 8.0, RBC 2.25 L, Hgb 9.0 L, Hct 27.5 L, MCV 122.2 H, MCH 40.0 H, MCHC 32.7, RDW 15.2 H, Plt Count 381, MPV 10.3, Neutrophils % (Manual) 57, Band Neuts % (Manual) 2, Lymphocytes % (Manual) 21, Monocytes % (Manual) 12 H, Eosinophils % (Manual) 2, Immature Granulocytes 6 H, Neutrophils # (Manual) 4.6, Lymphocytes # (Manual) 1.7, Monocytes # (Manual) 1.0, Eosinophils # (Manual) 0.2, Platelet Estimate Normal, Macrocytosis 2+ 08/20/18 06:12: WBC Cancelled, Corrected WBC (auto) Cancelled, RBC Cancelled, Hgb Cancelled, Hct Cancelled, MCV Cancelled, MCH Cancelled, MCHC Cancelled, RDW Cancelled, Plt Count Cancelled, MPV Cancelled, Immature Gran % (Auto) Cancelled, Immature Gran # (Auto) Cancelled, Neutrophils % Cancelled, Neutrophils % (Manual) Cancelled, Band Neuts % (Manual) Cancelled, Lymphocytes % Cancelled, Lymphocytes % (Manual) Cancelled, Monocytes % Cancelled, Monocytes % (Manual) Cancelled, Eosinophils % Cancelled, Eosinophils % (Manual) Cancelled, Basophils % Cancelled, Basophils % (Manual) Cancelled, Nucleated RBC % Cancelled, Immature Granulocytes Cancelled, Neutrophils # Cancelled, Neutrophils # (Manual) Cancelled, Lymphocytes # Cancelled, Lymphocytes # (Manual) Cancelled, Monocytes # Cancelled, Monocytes # (Manual) Cancelled, Eosinophils # Cancelled, Eosinophils # (Manual) Cancelled, Basophils # (Manual) Cancelled, Absolute Basophils Cancelled, Nucleated RBCs Cancelled, Differential Comment Cancelled, Hypersegmented Polys Cancelled, Atypic/Reactive Lymphs Cancelled, Smudge Cells Cancelled, Other Cell Type Cancelled, Toxic Granulation Cancelled, Toxic Vacuolation Cancelled, Dohle Bodies Cancelled, Platelet Estimate Cancelled, Giant Platelets Cancelled, RBC Morphology Cancelled, Polychromasia Cancelled, Hypochromasia Cancelled, Poikilocytosis Cancelled, Basophilic Stippling Cancelled, Anisocytosis Cancelled, Microcytosis Cancelled, Macrocytosis Cancelled, Spherocytes Cancelled, Sickle Cells Cancelled, Target Cells Cancelled, Tear Drop Cells Cancelled, Ovalocytes Cancelled, Stomatocytes Cancelled, [place] Bodies Cancelled, [place] Cells Cancelled, Elliptocytes Cancelled, Rouleaux Cancelled, Schistocytes Cancelled, Morphology Comment Cancelled 08/20/18 06:12: Sodium 143 H, Plasma Sodium 143 H, Potassium 3.7, Chloride 107 H, Carbon Dioxide 29.3, Anion Gap 10.4, BUN 31 H, Creatinine 1.56 H, Est GFR (Non-Af Amer) 45 L, BUN/Creatinine Ratio 19.9, Random Glucose 118 H, Calcium 8.1, Calcium Adj for Albumin 9.2, Total Bilirubin 0.4, AST 32, ALT 24, Alkaline Phosphatase 62, Total Protein 5.7 L, Albumin 2.2 L 08/20/18 06:12: B-Natriuretic Peptide 4120 H 08/20/18 06:15: Troponin I 2.577 H*, Digoxin 0.8 08/21/18 06:00: WBC 8.7, RBC 2.44 L, Hgb 9.5 L, Hct 29.3 L, MCV 120.1 H, MCH 38.9 H, MCHC 32.4, RDW 14.9 H, Plt Count 400, MPV 9.7, Neutrophils % (Manual) 63, Band Neuts % (Manual) 5 H, Lymphocytes % (Manual) 17 L, Monocytes % (Manual) 11 H, Eosinophils % (Manual) 1, Immature Granulocytes 3 H, Neutrophils # (Manual) 5.5, Lymphocytes # (Manual) 1.5, Monocytes # (Manual) 1.0, Eosinophils # (Manual) 0.1, Platelet Estimate Normal, Macrocytosis 2+ 08/21/18 06:00: Sodium 145 H, Plasma Sodium 145 H, Potassium 3.5, Chloride 108 H, Carbon Dioxide 28.6, Anion Gap 11.9, BUN 28 H, Creatinine 1.38, Est GFR (Non- Af Amer) 52 L, BUN/Creatinine Ratio 20.3, Random Glucose 116 H, Calcium 8.4, Vitamin B12 579, Folate Greater than 20.0 08/21/18 06:00: ESR Greater than 120 H 08/21/18 06:00: Uric Acid 8.7 H, C-Reactive Prot, Quant 8.8 H 08/21/18 16:56: Stool Occult Blood Negative Discharge Location: [facility] Disposition: SNF Condition: Fair Level of Care: SNF Discharge Activity: Activity as tolerated Discharge Diet: [facility] soft Prison Therapy: Physicial Therapy, Occupation Therapy Referrals: Saida Delarosa DO [Primary Care Provider] - Problem Oriented Discharge Instructions to Patient/Family: Hypoxemia Additional Patient Instructions (free text): - Dr. Delarosa will see Nas at [facility]. Prescriptions (Any new or edited meds): Aspirin [Aspirin Enteric Coated] 81 mg PO DAILY #30 tablet. Docusate Sodium [Colace] 100 mg PO DAILY #30 cap Colchicine 0.6 mg PO DAILY #30 tab Clopidogrel Bisulfate [Plavix] 75 mg PO DAILY #30 tab Metoprolol Succinate [Toprol Xl] 25 mg PO DAILY #30 tablet.sa Acetaminophen [Tylenol] 650 mg PO Q6H PRN #30 tab PRN Reason: Mild Pain (Pain Scale 1-3) Complete Home Medications List: Complete Home Medication List: Finasteride [Proscar] 5 mg PO DAILY 06/09/16 Hydroxyurea [Hydrea] 500 mg PO DAILY 06/09/16 Lisinopril [Zestril] 40 mg PO DAILY 06/09/16 Multivitamin [Multivitamins] 1 ea PO DAILY 06/09/16 Tamsulosin HCl 0.4 mg PO HS 06/09/16 amLODIPine BESYLATE [Norvasc] 10 mg PO DAILY 08/02/17 aspirin 81 mg tablet,delayed release 81 mg PO DAILY 09/27/17 calcium polycarbophil 625 mg tablet 1,250 mg PO BID 09/27/17 digoxin 125 mcg tablet 0.125 mg PO MOTUWETHFR 09/27/17 docusate sodium 100 mg tablet 200 mg PO BID PRN tab 09/27/17 ipratropium-albuterol 0.5 mg-3 mg(2.5 mg base)/3 mL nebulization soln 3 ml IH QID PRN 09/27/17 probenecid 500 mg tablet 250 mg PO BID tab 09/27/17 ranitidine 150 mg tablet 150 mg PO DAILY #30 tab 02/07/18 Pantoprazole Sodium [Protonix] 40 mg PO DAILY #60 tablet. 04/01/18 Potassium Chloride [Klor-Con M20] 20 meq PO TID #90 tab.er.prt 04/01/18 loratadine 10 mg tablet 10 mg PO DAILY #30 tab 04/20/18 furosemide 80 mg tablet 80 mg PO DAILY 05/23/18 gabapentin 300 mg capsule 300 mg PO TID #90 cap 07/19/18 Furosemide [Lasix] 40 mg PO 1400 08/17/18 HYDROcodone/ACETAMINOPHEN [[place] 5-325 Tablet] 1 tab PO BID 08/17/18 Acetaminophen [Tylenol] 650 mg PO Q6H PRN #30 tab 08/22/18 Aspirin [Aspirin Enteric Coated] 81 mg PO DAILY #30 tablet. 08/22/18 Clopidogrel Bisulfate [Plavix] 75 mg PO DAILY #30 tab 08/22/18 Colchicine 0.6 mg PO DAILY #30 tab 08/22/18 Docusate Sodium [Colace] 100 mg PO DAILY #30 cap 08/22/18 Metoprolol Succinate [Toprol Xl] 25 mg PO DAILY #30 tablet. 08/22/18
[2018-08-22] MEDS: ENOXAPARIN SODIUM 30 MG/0.3 ML SYRG SC SCH (10:48)
[2018-08-22] MEDS: FUROSEMIDE 80 MG TABLET PO SCH (13:32)
[2018-08-22 14:53] VITALS: BP 166/76
== END 2018-08-22 14:30 | DRG 193 ==
LOC: ER 17:08 → MS 18:05
PROVIDERS: ADMIT Family Medicine; ATTEND Family Medicine
DX: N17.9 Acute kidney failure, unspecified; D53.9 Nutritional anemia, unspecified; I50.43 Acute on chronic combined systolic (congestive) and diastolic (congestive) heart failure; A41.3 Sepsis due to Hemophilus influenzae; J96.01 Acute respiratory failure with hypoxia; J18.9 Pneumonia, unspecified organism; I50.84 End stage heart failure; N18.9 Chronic kidney disease, unspecified; D63.1 Anemia in chronic kidney disease; I13.0 Hypertensive heart and chronic kidney disease with heart failure and stage 1 through stage 4 chronic kidney disease, or unspecified chronic kidney disease; K21.9 Gastro-esophageal reflux disease without esophagitis; R74.8 Abnormal levels of other serum enzymes; I10 Essential (primary) hypertension; R65.20 Severe sepsis without septic shock
CPT/HCPCS: 36415; 36600; 71010; 71045; 80048; 80053; 80162; 81001; 82272; 82607; 82746; 82803; 83519; 83605; 83880; 84484; 84550; 85007; 85025; 85652; 86140; 87040; 87077; 87081; 87184; 87400; 87449; 93005; 96365; 99285